=== PATIENT | male | born 1960 | race Caucasian/White ===

== ENCOUNTER → 2017-02-09 | Outpatient (REF) | payer MEDICARE ==
[~2017-02-09] MED LIST: /ADVA50050 INH; /BUSP5TA OR; ALBUTEROL INH; ASPI81TA45 PO; EUCECRE2 TOP; LASI40TA PO; LISINOPRIL/HCTZ PO; MICR10CA PO; NICO21DI4 TD; NYAM10003 EXT; PRAV20TA2 OR; PRED10TA2 OR; PULM1SUS INH; XANA0.25 OR; ZEST10TA OR; spiriva INH
[2017-02-09 20:35] LABS: ALBUMIN 3.9 GM/DL (3.2-5.2); ALBUMIN/GLOBULIN RATIO 1.15 (1.00-1.93); ALKALINE PHOSPHATASE 78 U/L (45-117); ALT/SGPT 36 U/L (12-78); ANION GAP 9 MEQ/L (8-16); AST/SGOT 23 U/L (15-37); BILIRUBIN,TOTAL 0.4 MG/DL (0.2-1.0); BLOOD UREA NITROGEN 13 MG/DL (7-18); CALCIUM LEVEL 8.7 MG/DL (8.5-10.1); CARBON DIOXIDE LEVEL 29 MEQ/L (21-32); CHLORIDE LEVEL 101 MEQ/L (98-107); CHOLESTEROL LEVEL 213 MG/DL (<200); CREATININE FOR GFR 0.99 MG/DL (0.70-1.30); GLOMERULAR FILTRATION RATE > 60.0 (>56); GLUCOSE, FASTING 125 MG/DL (70-105); POTASSIUM SERUM 4.6 MEQ/L (3.5-5.1); SODIUM LEVEL 139 MEQ/L (136-145); TOTAL PROTEIN 7.3 GM/DL (6.4-8.2); TRIGLYCERIDES LEVEL 289 MG/DL (<150)
== END ==
LOC: M SFHCCAPE 07:01
PROVIDERS: ATTEND Physician Assistant
DX: E11.9 Type 2 diabetes mellitus without complications (principal); E78.5 Hyperlipidemia, unspecified

== ENCOUNTER → 2017-06-04 | Outpatient (REF) | payer MEDICARE ==
[2017-06-04 17:28] LABS: ALBUMIN 3.8 GM/DL (3.2-5.2); ALBUMIN/GLOBULIN RATIO 1.15 (1.00-1.93); ALKALINE PHOSPHATASE 79 U/L (45-117); ALT/SGPT 35 U/L (12-78); ANION GAP 10 MEQ/L (8-16); AST/SGOT 19 U/L (15-37); BILIRUBIN,TOTAL 0.3 MG/DL (0.2-1.0); BLOOD UREA NITROGEN 11 MG/DL (7-18); CALCIUM LEVEL 8.8 MG/DL (8.5-10.1); CARBON DIOXIDE LEVEL 26 MEQ/L (21-32); CHLORIDE LEVEL 105 MEQ/L (98-107); CHOLESTEROL LEVEL 135 MG/DL (<200); CREATININE FOR GFR 0.87 MG/DL (0.70-1.30); GLOMERULAR FILTRATION RATE > 60.0 (>56); GLUCOSE, FASTING 109 MG/DL (70-105); POTASSIUM SERUM 4.7 MEQ/L (3.5-5.1); SODIUM LEVEL 141 MEQ/L (136-145); TOTAL PROTEIN 7.1 GM/DL (6.4-8.2); TRIGLYCERIDES LEVEL 137 MG/DL (<150)
== END ==
LOC: M SFHCCAPE 07:48
PROVIDERS: ATTEND Physician Assistant
DX: I10 Essential (primary) hypertension (principal); E11.9 Type 2 diabetes mellitus without complications; E78.5 Hyperlipidemia, unspecified

== ENCOUNTER → 2017-11-16 | Outpatient (REF) | payer MEDICARE ==
[2017-11-16 17:34] LABS: ALBUMIN/GLOBULIN RATIO 1.18 (1.00-1.93); ALKALINE PHOSPHATASE 84 U/L (45-117); ALT/SGPT 30 U/L (12-78); ANION GAP 4 MEQ/L (8-16); AST/SGOT 17 U/L (7-37); BILIRUBIN,TOTAL 0.4 MG/DL (0.2-1.0); BLOOD UREA NITROGEN 11 MG/DL (7-18); CALCIUM LEVEL 8.9 MG/DL (8.5-10.1); CARBON DIOXIDE LEVEL 33 MEQ/L (21-32); CHLORIDE LEVEL 101 MEQ/L (98-107); CHOLESTEROL LEVEL 151 MG/DL (<200); CHOLESTEROL RISK RATIO 4.718 (<5); CREATININE FOR GFR 0.85 MG/DL (0.70-1.30); FREE T4 0.85 NG/DL (0.76-1.46); GLOMERULAR FILTRATION RATE > 60.0 (>56); GLUCOSE, FASTING 107 MG/DL (70-100); HDL CHOLESTEROL 32 MG/DL (>40); LDL CHOLESTEROL 90.2 MG/DL (<100); NON-HDL-C 119 MG/DL; POTASSIUM SERUM 4.8 MEQ/L (3.5-5.1); SODIUM LEVEL 138 MEQ/L (136-145); TOTAL PROTEIN 7.4 GM/DL (6.4-8.2); TRIGLYCERIDES LEVEL 144 MG/DL (<150)
[2017-11-16 18:52] LABS: ESTIMATED AVERAGE GLUCOSE 143 MG/DL (60-110); HEMOGLOBIN A1c 6.6 %
== END ==
LOC: M SFHCCAPE 09:37
DX: E11.9 Type 2 diabetes mellitus without complications (principal); F32.9 Major depressive disorder, single episode, unspecified; Z23 Encounter for immunization
CPT/HCPCS: 84443

== ENCOUNTER → 2018-03-11 | Outpatient (REF) | payer MEDICARE ==
[2018-03-11 17:04] LABS: BASO # 0.1 10^3/uL (0.0-0.2); BASO % 0.9 % (0.0-1.0); EOS # 0.2 10^3/uL (0.0-0.50); EOS % 2.6 % (0.0-3.0); ESTIMATED AVERAGE GLUCOSE 143 MG/DL (60-110); HEMATOCRIT 48.5 % (42.0-52.0); HEMOGLOBIN 15.7 g/dl (13.5-17.5); HEMOGLOBIN A1c 6.6 %; IMMATURE GRANULOCYTE % 0.3 % (0-3.0); LYMPH # 2.1 10^3/uL (1.5-4.5); LYMPH % 22.9 % (24.0-44.0); MEAN CORPUSCULAR HEMOGLOBIN 31.8 pg (27.0-33.0); MEAN CORPUSCULAR HGB CONC 32.4 g/dl (32.0-36.5); MEAN CORPUSCULAR VOLUME 98.2 fl (80.0-96.0); MONO # 0.8 10^3/uL (0.0-0.8); MONO % 8.2 % (0.0-5.0); NEUTROPHILS % 65.1 % (36.0-66.0); PLATELET COUNT, AUTOMATED 364 10^3/uL (150-450); RED BLOOD COUNT 4.94 10^6/uL (4.30-6.10); RED CELL DISTRIBUTION WIDTH 14.2 % (11.5-14.5); WHITE BLOOD COUNT 9.2 10^3/uL (4.0-10.0)
[2018-03-11 17:08] LABS: ALBUMIN 3.8 GM/DL (3.2-5.2); ALBUMIN/GLOBULIN RATIO 1.06 (1.00-1.93); ALKALINE PHOSPHATASE 79 U/L (45-117); ALT/SGPT 38 U/L (12-78); ANION GAP 7 MEQ/L (8-16); AST/SGOT 21 U/L (7-37); BILIRUBIN,TOTAL 0.3 MG/DL (0.2-1.0); BLOOD UREA NITROGEN 12 MG/DL (7-18); CALCIUM LEVEL 8.8 MG/DL (8.5-10.1); CARBON DIOXIDE LEVEL 28 MEQ/L (21-32); CHLORIDE LEVEL 104 MEQ/L (98-107); CHOLESTEROL LEVEL 115 MG/DL (<200); CHOLESTEROL RISK RATIO 4.423 (<5); CREATININE FOR GFR 0.85 MG/DL (0.70-1.30); GLOMERULAR FILTRATION RATE > 60.0 (>56); GLUCOSE, FASTING 121 MG/DL (70-100); HDL CHOLESTEROL 26 MG/DL (>40); LDL CHOLESTEROL 62.4 MG/DL (<100); NON-HDL-C 89 MG/DL; POTASSIUM SERUM 4.7 MEQ/L (3.5-5.1); PSA SCREENING 0.56 NG/ML (< 4.0); SODIUM LEVEL 139 MEQ/L (136-145); TOTAL PROTEIN 7.4 GM/DL (6.4-8.2); TRIGLYCERIDES LEVEL 133 MG/DL (<150)
[2018-03-11 17:27] LABS: CREATININE, URINE 20.6 MG/DL; MALB URINE SIEMENS 5.2 MG/L; MAU/CREAT RATIO 25.2 MCG/MG (0.0-30.0)
== END ==
LOC: M SFHCCAPE 07:04
DX: E78.5 Hyperlipidemia, unspecified (principal); E11.9 Type 2 diabetes mellitus without complications; Z12.5 Encounter for screening for malignant neoplasm of prostate
CPT/HCPCS: 80053

== ENCOUNTER → 2018-06-14 | Outpatient (REF) | payer MEDICARE ==
[2018-06-14 17:23] LABS: ALBUMIN 3.5 GM/DL (3.2-5.2); ALKALINE PHOSPHATASE 76 U/L (45-117); ALT/SGPT 32 U/L (12-78); ANION GAP 8 MEQ/L (8-16); AST/SGOT 16 U/L (7-37); BASO # 0.1 10^3/uL (0.0-0.2); BASO % 0.7 % (0.0-1.0); BILIRUBIN,TOTAL 0.4 MG/DL (0.2-1.0); BLOOD UREA NITROGEN 13 MG/DL (7-18); CALCIUM LEVEL 8.6 MG/DL (8.5-10.1); CARBON DIOXIDE LEVEL 28 MEQ/L (21-32); CHLORIDE LEVEL 102 MEQ/L (98-107); CHOLESTEROL LEVEL 134 MG/DL (<200); CHOLESTEROL RISK RATIO 4.785 (<5); CREATININE FOR GFR 0.84 MG/DL (0.70-1.30); EOS # 0.4 10^3/uL (0.0-0.50); EOS % 3.6 % (0.0-3.0); GLOMERULAR FILTRATION RATE > 60.0 (>56); GLUCOSE, FASTING 118 MG/DL (70-100); HDL CHOLESTEROL 28 MG/DL (>40); HEMATOCRIT 51.2 % (42.0-52.0); HEMOGLOBIN 16.5 g/dl (13.5-17.5); IMMATURE GRANULOCYTE % 0.5 % (0-3.0); LYMPH # 2.1 10^3/uL (1.5-4.5); LYMPH % 21.3 % (24.0-44.0); MEAN CORPUSCULAR HEMOGLOBIN 31.5 pg (27.0-33.0); MEAN CORPUSCULAR HGB CONC 32.2 g/dl (32.0-36.5); MEAN CORPUSCULAR VOLUME 97.9 fl (80.0-96.0); MONO # 0.6 10^3/uL (0.0-0.8); MONO % 6.2 % (0.0-5.0); NEUTROPHILS # 6.7 10^3/uL (1.8-7.7); NEUTROPHILS % 67.7 % (36.0-66.0); NON-HDL-C 106 MG/DL; PLATELET COUNT, AUTOMATED 305 10^3/uL (150-450); POTASSIUM SERUM 4.8 MEQ/L (3.5-5.1); RED BLOOD COUNT 5.23 10^6/uL (4.30-6.10); RED CELL DISTRIBUTION WIDTH 14.1 % (11.5-14.5); SODIUM LEVEL 138 MEQ/L (136-145); TRIGLYCERIDES LEVEL 170 MG/DL (<150); WHITE BLOOD COUNT 9.9 10^3/uL (4.0-10.0)
[2018-06-14 17:25] LABS: ESTIMATED AVERAGE GLUCOSE 140 MG/DL (60-110); HEMOGLOBIN A1c 6.5 %; TOTAL 25(OH) VITAMIN D 27.3 NG/ML (30.0-100.0)
== END ==
LOC: M SFHCCAPE 07:09
DX: I10 Essential (primary) hypertension (principal); E11.9 Type 2 diabetes mellitus without complications; E55.9 Vitamin D deficiency, unspecified; E78.5 Hyperlipidemia, unspecified
CPT/HCPCS: 80053

== ENCOUNTER → 2018-10-28 | Outpatient (REF) | payer MEDICARE ==
[2018-10-28 17:47] LABS: ALBUMIN 3.5 GM/DL (3.2-5.2); ALT/SGPT 37 U/L (12-78); BILIRUBIN,TOTAL 0.3 MG/DL (0.2-1.0); BLOOD UREA NITROGEN 13 MG/DL (7-18); CALCIUM LEVEL 9.2 MG/DL (8.5-10.1); CARBON DIOXIDE LEVEL 31 MEQ/L (21-32); CHLORIDE LEVEL 98 MEQ/L (98-107); CHOLESTEROL LEVEL 171 MG/DL (<200); CHOLESTEROL RISK RATIO 5.516 (<5); GLOMERULAR FILTRATION RATE > 60.0 (>56); GLUCOSE, FASTING 147 MG/DL (70-100); HDL CHOLESTEROL 31 MG/DL (>40); LDL CHOLESTEROL 112 MG/DL (<100); NON-HDL-C 140 MG/DL; POTASSIUM SERUM 4.5 MEQ/L (3.5-5.1); SODIUM LEVEL 135 MEQ/L (136-145); TOTAL PROTEIN 7.3 GM/DL (6.4-8.2); TRIGLYCERIDES LEVEL 139 MG/DL (<150)
[2018-10-28 17:55] LABS: TOTAL 25(OH) VITAMIN D 19.9 NG/ML (30.0-100.0)
[2018-10-28 18:44] LABS: HEMOGLOBIN A1c 6.6 %
== END ==
LOC: M SFHCCAPE 07:13
PROVIDERS: ATTEND Physician Assistant
DX: I10 Essential (primary) hypertension (principal); E11.9 Type 2 diabetes mellitus without complications; E78.5 Hyperlipidemia, unspecified; E55.9 Vitamin D deficiency, unspecified

== ENCOUNTER → 2019-02-28 | Outpatient (REF) | payer MEDICARE ==
[~2019-02-28] MED LIST changes: -/ADVA50050 INH; +ADVA1AER2 INH
[2019-02-28 17:25] LABS: BASO # 0.1 10^3/uL (0.0-0.2); BASO % 0.8 % (0.0-1.0); EOS # 0.3 10^3/uL (0.0-0.50); EOS % 3.2 % (0.0-3.0); HEMATOCRIT 56.7 % (42.0-52.0); HEMOGLOBIN 17.4 g/dl (13.5-17.5); LYMPH # 2.1 10^3/uL (1.5-4.5); LYMPH % 20.4 % (24.0-44.0); MEAN CORPUSCULAR HEMOGLOBIN 30.6 pg (27.0-33.0); MEAN CORPUSCULAR HGB CONC 30.7 g/dl (32.0-36.5); MEAN CORPUSCULAR VOLUME 99.6 fl (80.0-96.0); MONO # 0.7 10^3/uL (0.0-0.8); MONO % 6.9 % (0.0-5.0); NEUTROPHILS # 7.1 10^3/uL (1.8-7.7); NEUTROPHILS % 67.9 % (36.0-66.0); PLATELET COUNT, AUTOMATED 320 10^3/uL (150-450); RED BLOOD COUNT 5.69 10^6/uL (4.30-6.10); WHITE BLOOD COUNT 10.4 10^3/uL (4.0-10.0)
[2019-02-28 17:38] LABS: ALBUMIN 3.4 GM/DL (3.2-5.2); ALT/SGPT 32 U/L (12-78); BILIRUBIN,TOTAL 0.4 MG/DL (0.2-1.0); BLOOD UREA NITROGEN 12 MG/DL (7-18); CALCIUM LEVEL 8.6 MG/DL (8.5-10.1); CARBON DIOXIDE LEVEL 35 MEQ/L (21-32); CHLORIDE LEVEL 99 MEQ/L (98-107); CHOLESTEROL LEVEL 162 MG/DL (<200); CHOLESTEROL RISK RATIO 5.225 (<5); CREATININE FOR GFR 0.89 MG/DL (0.70-1.30); GLOMERULAR FILTRATION RATE > 60.0 (>56); GLUCOSE, FASTING 122 MG/DL (70-100); HDL CHOLESTEROL 31 MG/DL (>40); LDL CHOLESTEROL 99 MG/DL (<100); NON-HDL-C 131 MG/DL; POTASSIUM SERUM 4.9 MEQ/L (3.5-5.1); SODIUM LEVEL 139 MEQ/L (136-145); TOTAL PROTEIN 7.6 GM/DL (6.4-8.2); TRIGLYCERIDES LEVEL 159 MG/DL (<150)
[2019-02-28 19:53] LABS: MALB URINE SIEMENS 28.4 MG/L; MAU/CREAT RATIO 19.1 MCG/MG (0.0-30.0)
== END ==
LOC: M SFHCCAPE 07:14
PROVIDERS: ATTEND Physician Assistant
DX: I10 Essential (primary) hypertension (principal); E11.9 Type 2 diabetes mellitus without complications; Z12.5 Encounter for screening for malignant neoplasm of prostate; F32.9 Major depressive disorder, single episode, unspecified; E55.9 Vitamin D deficiency, unspecified
CPT/HCPCS: 36415; 80053; 80061; 82043; 82306; 83036; 84443; 85025; G0103

== ENCOUNTER → 2019-04-25 | Outpatient (REF) | payer MEDICARE ==
[2019-04-25 18:01] LABS: BASO # 0.1 10^3/uL (0.0-0.2); BASO % 0.6 % (0.0-1.0); EOS # 0.3 10^3/uL (0.0-0.50); EOS % 2.9 % (0.0-3.0); HEMATOCRIT 56.6 % (42.0-52.0); HEMOGLOBIN 17.8 g/dl (13.5-17.5); LYMPH # 1.9 10^3/uL (1.5-4.5); MEAN CORPUSCULAR HEMOGLOBIN 31.2 pg (27.0-33.0); MEAN CORPUSCULAR HGB CONC 31.4 g/dl (32.0-36.5); MEAN CORPUSCULAR VOLUME 99.3 fl (80.0-96.0); MONO # 0.8 10^3/uL (0.0-0.8); MONO % 7.8 % (0.0-5.0); NEUTROPHILS % 69.3 % (36.0-66.0); PLATELET COUNT, AUTOMATED 328 10^3/uL (150-450); WHITE BLOOD COUNT 10.1 10^3/uL (4.0-10.0)
[2019-04-25 18:03] LABS: BLOOD UREA NITROGEN 13 MG/DL (7-18); CREATININE FOR GFR 0.88 MG/DL (0.70-1.30); GLUCOSE, FASTING 106 MG/DL (70-100)
[2019-04-25 18:04] LABS: ALBUMIN 3.6 GM/DL (3.2-5.2); ALT/SGPT 27 U/L (12-78); BILIRUBIN,TOTAL 0.3 MG/DL (0.2-1.0); CALCIUM LEVEL 8.9 MG/DL (8.5-10.1); CARBON DIOXIDE LEVEL 31 MEQ/L (21-32); CHLORIDE LEVEL 102 MEQ/L (98-107); GLOMERULAR FILTRATION RATE > 60.0 (>56); POTASSIUM SERUM 4.9 MEQ/L (3.5-5.1); SODIUM LEVEL 139 MEQ/L (136-145); TOTAL PROTEIN 7.4 GM/DL (6.4-8.2)
[2019-04-25 19:12] LABS: TOTAL 25(OH) VITAMIN D 16.8 NG/ML (30.0-100.0)
== END ==
LOC: M SFHCCAPE 07:06
PROVIDERS: ATTEND Physician Assistant
DX: R71.8 Other abnormality of red blood cells (principal); E55.9 Vitamin D deficiency, unspecified

== ENCOUNTER → 2019-09-05 | Outpatient (REF) | payer MEDICARE ==
[2019-09-05 17:10] LABS: BASO # 0.1 10^3/uL (0.0-0.2); BASO % 0.8 % (0.0-1.0); EOS # 0.3 10^3/uL (0.0-0.5); EOS % 2.8 % (0.0-3.0); HEMATOCRIT 53.8 % (42.0-52.0); HEMOGLOBIN 17.2 g/dl (13.5-17.5); LYMPH # 1.9 10^3/uL (1.5-5.0); LYMPH % 20.3 % (24.0-44.0); MEAN CORPUSCULAR HEMOGLOBIN 31.2 pg (27.0-33.0); MEAN CORPUSCULAR VOLUME 97.6 fl (80.0-96.0); MONO # 0.9 10^3/uL (0.0-0.8); MONO % 9.1 % (0.0-5.0); NEUTROPHILS # 6.4 10^3/uL (1.5-8.5); NEUTROPHILS % 66.6 % (36.0-66.0); PLATELET COUNT, AUTOMATED 288 10^3/uL (150-450); RED BLOOD COUNT 5.51 10^6/uL (4.30-6.10); WHITE BLOOD COUNT 9.6 10^3/uL (4.0-10.0)
[2019-09-05 17:38] LABS: ALBUMIN 3.5 GM/DL (3.2-5.2); ALT/SGPT 29 U/L (12-78); BILIRUBIN,TOTAL 0.4 MG/DL (0.2-1.0); BLOOD UREA NITROGEN 15 MG/DL (7-18); CALCIUM LEVEL 8.3 MG/DL (8.5-10.1); CARBON DIOXIDE LEVEL 31 MEQ/L (21-32); CHLORIDE LEVEL 102 MEQ/L (98-107); CHOLESTEROL LEVEL 118 MG/DL (<200); CHOLESTEROL RISK RATIO 3.933 (<5); CREATININE FOR GFR 0.84 MG/DL (0.70-1.30); GLOMERULAR FILTRATION RATE > 60.0 (>56); GLUCOSE, FASTING 102 MG/DL (70-100); HDL CHOLESTEROL 30 MG/DL (>40); LDL CHOLESTEROL 68 MG/DL (<100); NON-HDL-C 88 MG/DL; POTASSIUM SERUM 5.3 MEQ/L (3.5-5.1); SODIUM LEVEL 139 MEQ/L (136-145); TOTAL PROTEIN 6.9 GM/DL (6.4-8.2); TRIGLYCERIDES LEVEL 101 MG/DL (<150)
[2019-09-05 18:00] LABS: HEMOGLOBIN A1c 6.3 %
[2019-09-05 18:34] LABS: TOTAL 25(OH) VITAMIN D 20.7 NG/ML (30.0-100.0)
== END ==
LOC: M SFHCCAPE 06:57
PROVIDERS: ATTEND Physician Assistant
DX: D58.2 Other hemoglobinopathies (principal); I10 Essential (primary) hypertension; E11.8 Type 2 diabetes mellitus with unspecified complications; F32.9 Major depressive disorder, single episode, unspecified; E55.9 Vitamin D deficiency, unspecified
CPT/HCPCS: 36415; 80053; 80061; 82306; 83036; 84443; 85025; 90682; G0008

== ENCOUNTER → 2019-09-13 | Outpatient (REF) | payer MEDICARE ==
[2019-09-13 18:17] LABS: BLOOD UREA NITROGEN 15 MG/DL (7-18); CALCIUM LEVEL 9.1 MG/DL (8.5-10.1); CARBON DIOXIDE LEVEL 35 MEQ/L (21-32); CHLORIDE LEVEL 100 MEQ/L (98-107); CREATININE FOR GFR 0.92 MG/DL (0.70-1.30); GLOMERULAR FILTRATION RATE > 60.0 (>56); GLUCOSE, FASTING 116 MG/DL (70-100); MAGNESIUM LEVEL 2.1 MG/DL (1.8-2.4); POTASSIUM SERUM 4.7 MEQ/L (3.5-5.1); SODIUM LEVEL 139 MEQ/L (136-145)
== END ==
LOC: M SFHCCAPE 07:18
PROVIDERS: ATTEND Physician Assistant
DX: E87.5 Hyperkalemia (principal)

== ENCOUNTER → 2019-12-15 | Outpatient (REF) | payer MEDICARE ==
[2019-12-15 16:11] LABS: BASO # 0.1 10^3/uL (0.0-0.2); BASO % 0.7 % (0.0-1.0); EOS # 0.2 10^3/uL (0.0-0.5); EOS % 1.7 % (0.0-3.0); HEMATOCRIT 58.3 % (42.0-52.0); HEMOGLOBIN 18.3 g/dl (13.5-17.5); LYMPH # 1.9 10^3/uL (1.5-5.0); LYMPH % 13.9 % (24.0-44.0); MEAN CORPUSCULAR HEMOGLOBIN 31.3 pg (27.0-33.0); MEAN CORPUSCULAR HGB CONC 31.4 g/dl (32.0-36.5); MEAN CORPUSCULAR VOLUME 99.7 fl (80.0-96.0); MONO # 0.9 10^3/uL (0.0-0.8); NEUTROPHILS # 10.2 10^3/uL (1.5-8.5); NEUTROPHILS % 76.3 % (36.0-66.0); PLATELET COUNT, AUTOMATED 291 10^3/uL (150-450); RED BLOOD COUNT 5.85 10^6/uL (4.30-6.10); WHITE BLOOD COUNT 13.4 10^3/uL (4.0-10.0)
[2019-12-15 16:30] LABS: ALBUMIN 3.8 GM/DL (3.2-5.2); ALT/SGPT 30 U/L (12-78); BILIRUBIN,TOTAL 0.7 MG/DL (0.2-1.0); BLOOD UREA NITROGEN 11 MG/DL (7-18); CALCIUM LEVEL 8.8 MG/DL (8.5-10.1); CARBON DIOXIDE LEVEL 35 MEQ/L (21-32); CHLORIDE LEVEL 99 MEQ/L (98-107); CHOLESTEROL LEVEL 130 MG/DL (<200); CHOLESTEROL RISK RATIO 3.939 (<5); CREATININE FOR GFR 0.87 MG/DL (0.70-1.30); GLOMERULAR FILTRATION RATE > 60.0 (>56); GLUCOSE, FASTING 127 MG/DL (70-100); HDL CHOLESTEROL 33 MG/DL (>40); LDL CHOLESTEROL 74 MG/DL (<100); NON-HDL-C 97 MG/DL; POTASSIUM SERUM 4.6 MEQ/L (3.5-5.1); SODIUM LEVEL 137 MEQ/L (136-145); TOTAL PROTEIN 7.1 GM/DL (6.4-8.2); TRIGLYCERIDES LEVEL 113 MG/DL (<150)
[2019-12-15 16:40] LABS: HEMOGLOBIN A1c 6.4 %
[2019-12-15 16:49] LABS: TOTAL 25(OH) VITAMIN D 13.6 NG/ML (30.0-100.0)
[2019-12-15 17:07] LABS: CREATININE, URINE 58.7 MG/DL; MALB URINE SIEMENS 30.8 MG/L; MAU/CREAT RATIO 52.4 MCG/MG (0.0-30.0)
== END ==
LOC: M SFHCCAPE 07:00
PROVIDERS: ATTEND Physician Assistant
DX: I10 Essential (primary) hypertension (principal); E11.9 Type 2 diabetes mellitus without complications; E78.5 Hyperlipidemia, unspecified; E55.9 Vitamin D deficiency, unspecified

== ENCOUNTER → 2020-03-26 | Outpatient (REF) | payer MEDICARE ==
[2020-03-26 11:41] LABS: BASO # 0.1 10^3/uL (0.0-0.2); BASO % 0.8 % (0.0-1.0); EOS # 0.3 10^3/uL (0.0-0.5); EOS % 2.6 % (0.0-3.0); HEMATOCRIT 63.4 % (42.0-52.0); LYMPH # 1.8 10^3/uL (1.5-5.0); LYMPH % 16.7 % (24.0-44.0); MEAN CORPUSCULAR HEMOGLOBIN 31.8 pg (27.0-33.0); MEAN CORPUSCULAR VOLUME 99.4 fl (80.0-96.0); MONO # 0.7 10^3/uL (0.0-0.8); MONO % 6.2 % (0.0-5.0); NEUTROPHILS # 7.8 10^3/uL (1.5-8.5); NEUTROPHILS % 73.1 % (36.0-66.0); PLATELET COUNT, AUTOMATED 273 10^3/uL (150-450); RED BLOOD COUNT 6.38 10^6/uL (4.30-6.10); WHITE BLOOD COUNT 10.6 10^3/uL (4.0-10.0)
[2020-03-26 12:08] LABS: HEMOGLOBIN 20.3 g/dl (13.5-17.5)
[2020-03-26 14:21] LABS: ALBUMIN 3.7 GM/DL (3.2-5.2); ALT/SGPT 35 U/L (12-78); BILIRUBIN,TOTAL 0.5 MG/DL (0.2-1.0); BLOOD UREA NITROGEN 11 MG/DL (7-18); CALCIUM LEVEL 9.1 MG/DL (8.5-10.1); CARBON DIOXIDE LEVEL 32 MEQ/L (21-32); CHLORIDE LEVEL 99 MEQ/L (98-107); CHOLESTEROL LEVEL 117 MG/DL (<200); CREATININE FOR GFR 0.76 MG/DL (0.70-1.30); GLOMERULAR FILTRATION RATE > 60.0 (>56); GLUCOSE, FASTING 108 MG/DL (70-100); HDL CHOLESTEROL 30 MG/DL (>40); LDL CHOLESTEROL 65 MG/DL (<100); NON-HDL-C 87 MG/DL; SODIUM LEVEL 140 MEQ/L (136-145); TOTAL 25(OH) VITAMIN D 49.3 NG/ML (30.0-100.0); TOTAL PROTEIN 6.9 GM/DL (6.4-8.2); TRIGLYCERIDES LEVEL 110 MG/DL (<150)
[2020-03-26 14:24] LABS: HEMOGLOBIN A1c 6.9 %
== END ==
LOC: M SFHCCLAY 09:03
PROVIDERS: ATTEND Physician Assistant
DX: I10 Essential (primary) hypertension (principal); E11.9 Type 2 diabetes mellitus without complications; E78.5 Hyperlipidemia, unspecified; Z12.5 Encounter for screening for malignant neoplasm of prostate; F32.9 Major depressive disorder, single episode, unspecified; E55.9 Vitamin D deficiency, unspecified
CPT/HCPCS: 80053; 80061; 82306; 83036; 84443; 85025; G0103

== ENCOUNTER → 2020-04-25 | Outpatient (CLI) | payer MEDICARE ==
[~2020-04-25] MED LIST changes: +ALBU8.5H INH; +ASPI81CH33 PO; +ASPI81TA85 PO; +ATOR40TA75 PO; +CITA20TA6 PO; +EUCECRE8 TP; +FURO20TA2 PO; +HYDR-3715 PO; +LISI-538 PO; +METF-839 PO; +NICO1KIT TOP; +PLAV1TAB2 PO; +POTA10TA17 PO
--- NOTE | 2020-04-25 10:18 | REP ---
Clinical: History of polycythemia. Technique: Real time [place]amorado scale and color evaluation using curved array transducer. Findings: Ultrasound examination of the left upper quadrant demonstrates normal spleen measuring 10.0 x 4.5 x 6.5 cm. No splenic lesions are identified. The right kidney is normal in reniform shape without hydronephrosis and measures 12.1 x 5.6 x 6.5 cm. Impression: Normal spleen and left upper quadrant ultrasound. Electronically Signed by Kt Castillo MD 04/25/2020 10:10 A
== END ==
LOC: M LRY 08:47
PROVIDERS: ATTEND Specialist
DX: D75.1 Secondary polycythemia (principal); D72.829 Elevated white blood cell count, unspecified

== ENCOUNTER → 2020-07-05 | Outpatient (REF) | payer MEDICARE ==
[~2020-07-05] MED LIST changes: -ASPI81TA85 PO; +ASPI81TA86 PO; +ATOR80TA59 PO; +CITA40TA4 PO; +METO1TAB7 PO; +MOXI1TAB PO; +NICO21PAT TD; +PRED10TA2 PO; +VITA50005 PO
[2020-07-05 13:50] LABS: BASO # 0.1 10^3/uL (0.0-0.2); BASO % 0.9 % (0.0-1.0); EOS # 0.3 10^3/uL (0.0-0.5); EOS % 2.4 % (0.0-3.0); HEMATOCRIT 60.9 % (42.0-52.0); HEMOGLOBIN 17.9 g/dl (13.5-17.5); LYMPH % 16.9 % (24.0-44.0); MEAN CORPUSCULAR HEMOGLOBIN 29.1 pg (27.0-33.0); MEAN CORPUSCULAR HGB CONC 29.4 g/dl (32.0-36.5); MONO # 1.1 10^3/uL (0.0-0.8); MONO % 9.2 % (0.0-5.0); NEUTROPHILS # 8.2 10^3/uL (1.5-8.5); PLATELET COUNT, AUTOMATED 311 10^3/uL (150-450); RED BLOOD COUNT 6.15 10^6/uL (4.30-6.10); WHITE BLOOD COUNT 11.7 10^3/uL (4.0-10.0)
[2020-07-05 14:11] LABS: HEMOGLOBIN A1c 6.9 %
[2020-07-05 14:15] LABS: ALBUMIN 3.5 GM/DL (3.2-5.2); ALT/SGPT 31 U/L (12-78); BILIRUBIN,TOTAL 0.5 MG/DL (0.2-1.0); BLOOD UREA NITROGEN 11 MG/DL (7-18); CALCIUM LEVEL 9.1 MG/DL (8.5-10.1); CARBON DIOXIDE LEVEL 37 MEQ/L (21-32); CHLORIDE LEVEL 98 MEQ/L (98-107); CHOLESTEROL LEVEL 134 MG/DL (<200); CHOLESTEROL RISK RATIO 3.828 (<5); CREATININE FOR GFR 0.88 MG/DL (0.70-1.30); GLOMERULAR FILTRATION RATE > 60.0 (>56); GLUCOSE, FASTING 101 MG/DL (70-100); HDL CHOLESTEROL 35 MG/DL (>40); LDL CHOLESTEROL 74 MG/DL (<100); NON-HDL-C 99 MG/DL; POTASSIUM SERUM 4.6 MEQ/L (3.5-5.1); SODIUM LEVEL 139 MEQ/L (136-145); TOTAL PROTEIN 7.3 GM/DL (6.4-8.2); TRIGLYCERIDES LEVEL 125 MG/DL (<150)
== END ==
LOC: M LABDRAWC 08:35
PROVIDERS: ATTEND Physician Assistant
DX: E11.8 Type 2 diabetes mellitus with unspecified complications (principal)

== ENCOUNTER 2020-07-09 12:24 | Inpatient (IN) | payer MEDICARE ==
[~2020-07-09] VITALS: Ht 172.7 cm; Wt 143.8 kg
[~2020-07-09 12:24] MED LIST changes: -ATOR80TA59 PO; -CITA40TA4 PO; -METO1TAB7 PO; -MOXI1TAB PO; -NICO21PAT TD; -PRED10TA2 PO; -VITA50005 PO
[2020-07-09] MEDS ORDERED: METO1TAB7 PO (12:35)
[2020-07-09] MEDS ORDERED: methylPREDNISolone 125MG 2ML VIAL IV ONE (13:00)
--- NOTE | 2020-07-09 13:20 | REPVR ---
PROCEDURE INFORMATION: Exam: XR Chest, 1 View Exam date and time: 07/09/2020 1:11 PM Age: 59 years old Clinical indication: Dyspnea; Additional info: Dyspnea/cough TECHNIQUE: Imaging protocol: XR of the chest Views: 1 view. COMPARISON: No relevant prior studies available. FINDINGS: Lungs: Unremarkable. No consolidation. Pleural space: Unremarkable. No pleural effusion. No pneumothorax. Heart/Mediastinum: There is cardiomegaly. Bones/joints: Unremarkable. IMPRESSION: No acute findings. Electronically signed by: Des Hagan On 07/09/2020 13:20:42 PM
[2020-07-09] MEDS: IPRATROPIUM 0.5MG/ALBUTEROL 2.5MG INH SOL UD 3ML (DUONEB) NEB PRN ×3 (13:32→14:10)
[2020-07-09 13:42] LABS: BASO # 0.1 10^3/uL (0.0-0.2); BASO % 0.7 % (0.0-1.0); EOS # 0.2 10^3/uL (0.0-0.5); HEMOGLOBIN 16.6 g/dl (13.5-17.5); LYMPH # 1.6 10^3/uL (1.5-5.0); LYMPH % 13.5 % (24.0-44.0); MEAN CORPUSCULAR HEMOGLOBIN 28.5 pg (27.0-33.0); MEAN CORPUSCULAR HGB CONC 29.6 g/dl (32.0-36.5); MEAN CORPUSCULAR VOLUME 96.2 fl (80.0-96.0); MONO % 8.3 % (0.0-5.0); NEUTROPHILS # 8.6 10^3/uL (1.5-8.5); NEUTROPHILS % 74.9 % (36.0-66.0); PLATELET COUNT, AUTOMATED 315 10^3/uL (150-450); RED BLOOD COUNT 5.82 10^6/uL (4.30-6.10); WHITE BLOOD COUNT 11.5 10^3/uL (4.0-10.0)
[2020-07-09 13:44] LABS: VENOUS BASE EXCESS 6.4 (-2.0-2.0); VENOUS HCO3 36.5 MEQ/L (23.0-27.0); VENOUS O2 SATURATION 98.2 % (60.0-80.0); VENOUS PARTIAL PRESSURE CO2 75.8 mmHg (38.0-50.0); VENOUS PARTIAL PRESSURE O2 120.6 mmHg (30.0-50.0); VENOUS STANDARD HCO3 30.3 MEQ/L; VENOUS TOTAL CO2 38.8 MEQ/L (24.0-28.0)
[2020-07-09 13:54] LABS: INR 0.97
[2020-07-09 14:19] LABS: ALBUMIN 3.3 GM/DL (3.2-5.2); BILIRUBIN,DIRECT 0.2 MG/DL (0.0-0.2); BILIRUBIN,TOTAL 0.6 MG/DL (0.2-1.0); CK-MB VALUE MASS 3.4 NG/ML (<3.6); MB/CK RELATIVE INDEX 2.34 (< OR =4); THYROID STIMULATING HORMONE 1.63 uIU/ML (0.358-3.740); THYROXINE (T4) 5.5 UG/DL (4.5-12.0); TOTAL PROTEIN 6.6 GM/DL (6.4-8.2); TROPONIN I 0.04 NG/ML (< 0.10)
[2020-07-09] MEDS ORDERED: DEXTROSE 50% 50 ML SYRINGE IV PRN (15:00)
[2020-07-09] MEDS ORDERED: GLUCAGON INJ 1MG VIAL SC PRN (15:00)
[2020-07-09] MEDS ORDERED: GLUCOSE 4GM CHEW TABLET PO PRN (15:00)
[2020-07-09] MEDS ORDERED: LEVALBUTEROL 1.25 MG/0.5 ML CONCENTRATE NEB INH PRN (15:00)
[2020-07-09] MEDS ORDERED: ATOR80TA59 PO (15:07)
[2020-07-09] MEDS ORDERED: VITA50005 PO (15:07)
[2020-07-09] MEDS ORDERED: CITA40TA4 PO (15:07)
[2020-07-09] MEDS ORDERED: ISOVUE-370 76% 100ML VIAL As Ordered ONE (15:27)
[2020-07-09] MEDS ORDERED: ALBUTEROL 90 MCG/ACT 8GM HFA INHALER INH PRN (15:30)
[2020-07-09] MEDS ORDERED: NORCO, ANEXSIA 5/325MG TABLET (HYDROcodone/ACETAMINOPHEN) PO PRN (15:30)
[2020-07-09] MEDS: LEVALBUTEROL 1.25 MG/0.5 ML CONCENTRATE NEB INH SCH ×3 (15:32→23:38)
[2020-07-09] MEDS ORDERED: metOLazone 5 MG TAB PO ONE ×2 (16:00→17:30)
[2020-07-09 16:12] VITALS: BP 131/62
--- NOTE | 2020-07-09 16:15 | REPVR ---
PROCEDURE INFORMATION: Exam: CT Angiography Chest With Contrast Exam date and time: 07/09/2020 3:55 PM Age: 59 years old Clinical indication: Other: R/O pe SOB TECHNIQUE: Imaging protocol: Computed tomographic angiography of the chest with intravenous contrast. 3D rendering (Not supervised by radiologist): MIP and/or 3D reconstructed images were created by the technologist. Radiation optimization: All CT scans at this facility use at least one of these dose optimization techniques: automated exposure control; mA and/or kV adjustment per patient size (includes targeted exams where dose is matched to clinical indication); or iterative reconstruction. Contrast material: ISOVIEW; Contrast volume: 75 ml; Contrast route: INTRAVENOUS (IV); COMPARISON: CR PORTABLE CHEST X-RAY 07/09/2020 12:51 PM FINDINGS: Pulmonary arteries: Contrast within the main pulmonary artery is 110 making evaluation not possible except for to rule out huge central pulmonary emboli. Aorta: Unremarkable. No aortic aneurysm. No aortic dissection. Lungs: There is a small amount of infiltrate possibly atelectasis scarring involving the left lower lobe. The right lung demonstrates no definite abnormality given motion. Pleural space: Unremarkable. No pneumothorax. No pleural effusion. Heart: Unremarkable. No cardiomegaly. No pericardial effusion. Lymph nodes: Unremarkable. No enlarged lymph nodes. Bones/joints: Unremarkable. No acute fracture. Soft tissues: Unremarkable. Other findings: There is motion noted throughout the study. IMPRESSION: 1. Essentially nondiagnostic study for pulmonary emboli. 2. Left lower lobe infiltrate. Electronically signed by: Des Hagan On 07/09/2020 16:14:55 PM
[2020-07-09] MEDS: DOXYCYCLINE HYCLATE 100 MG in D5W MINI-BAG PLUS 100 ML IV SCH (16:45)
[2020-07-09] MEDS ORDERED: NICOTINE POLACRILEX 2 MG GUM PO PRN (16:45)
[2020-07-09 16:46] LABS: CK-MB VALUE MASS 3.5 NG/ML (<3.6); MB/CK RELATIVE INDEX 2.41 (< OR =4); TROPONIN I 0.04 NG/ML (< 0.10)
[2020-07-09] MEDS: HumaLOG INSULIN (NovoLOG) PER UNIT SC SCH ×2 (16:47→21:01)
[2020-07-09 18:43] VITALS: BP 132/61
[2020-07-09] MEDS: FUROSEMIDE 40MG/4ML VIAL (J1940) IV SCH (18:43)
[2020-07-09 19:58] LABS: IONIZED CALCIUM 4.3 MG/DL (4.5-5.3)
[2020-07-09 20:00] VITALS: BP 135/64
[2020-07-09 20:22] LABS: BLOOD UREA NITROGEN 14 MG/DL (7-18); CALCIUM LEVEL 8.9 MG/DL (8.5-10.1); CARBON DIOXIDE LEVEL 36 MEQ/L (21-32); CHLORIDE LEVEL 94 MEQ/L (98-107); CREATININE FOR GFR 1.07 MG/DL (0.70-1.30); GLOMERULAR FILTRATION RATE > 60.0 (>56); GLUCOSE, FASTING 239 MG/DL (70-100); MAGNESIUM LEVEL 1.9 MG/DL (1.8-2.4); POTASSIUM SERUM 4.6 MEQ/L (3.5-5.1); SODIUM LEVEL 136 MEQ/L (136-145)
[2020-07-09 20:42] LABS: CK-MB VALUE MASS 3.5 NG/ML (<3.6); MB/CK RELATIVE INDEX 2.12 (< OR =4); TROPONIN I 0.03 NG/ML (< 0.10)
[2020-07-09 20:44] LABS: ABG PARTIAL PRESSURE O2 56.8 mmHg (75.0-100.0)
[2020-07-09 20:45] LABS: ABG BASE EXCESS 3.5 (-2.0-2.0); ABG HCO3 31.6 MEQ/L (22.0-26.0); ABG O2 SATURATION 89.7 % (95.0-99.0); ABG STANDARD HCO3 27.3 MEQ/L (22.0-26.0); ABG TOTAL CO2 33.5 MEQ/L (22.0-29.0); ABG pH (ARTERIAL) 7.332 UNITS (7.350-7.450)
[2020-07-09 20:48] LABS: ABG PARTIAL PRESSURE CO2 61.1 mmHg (35.0-45.0)
[2020-07-09] MEDS: methylPREDNISolone 125MG 2ML VIAL IV SCH (21:00)
[2020-07-09] MEDS: HEPARIN SOD (PORCINE) 5000UNITS/ML 1ML VIAL/SYRINGE SQ SCH (21:01)
[2020-07-09] MEDS: NICOTINE 21MG/24HR 1 EA TRANSDERMAL TD SCH (21:01)
[2020-07-10] VITALS: BP 132/71
[2020-07-10] MEDS: FUROSEMIDE 40MG/4ML VIAL (J1940) IV SCH ×6 (01:23→21:09)
[2020-07-10] MEDS: methylPREDNISolone 125MG 2ML VIAL IV SCH ×4 (01:24→21:08)
[2020-07-10 04:00] VITALS: BP 111/53
[2020-07-10] MEDS: LEVALBUTEROL 1.25 MG/0.5 ML CONCENTRATE NEB INH SCH ×6 (04:00→23:36)
[2020-07-10] MEDS: DOXYCYCLINE HYCLATE 100 MG in D5W MINI-BAG PLUS 100 ML IV SCH ×2 (04:01→14:37)
[2020-07-10] MEDS: HEPARIN SOD (PORCINE) 5000UNITS/ML 1ML VIAL/SYRINGE SQ SCH ×3 (05:39→21:09)
[2020-07-10 06:25] LABS: HEMATOCRIT 59.3 % (42.0-52.0); HEMOGLOBIN 17.7 g/dl (13.5-17.5); MEAN CORPUSCULAR HEMOGLOBIN 28.5 pg (27.0-33.0); MEAN CORPUSCULAR HGB CONC 29.8 g/dl (32.0-36.5); MEAN CORPUSCULAR VOLUME 95.3 fl (80.0-96.0); PLATELET COUNT, AUTOMATED 317 10^3/uL (150-450); RED BLOOD COUNT 6.22 10^6/uL (4.30-6.10); WHITE BLOOD COUNT 12.8 10^3/uL (4.0-10.0)
[2020-07-10 06:33] LABS: HEMOGLOBIN A1c 6.7 %
[2020-07-10 06:57] LABS: BLOOD UREA NITROGEN 14 MG/DL (7-18); CALCIUM LEVEL 9.2 MG/DL (8.5-10.1); CARBON DIOXIDE LEVEL 38 MEQ/L (21-32); CHLORIDE LEVEL 92 MEQ/L (98-107); CHOLESTEROL LEVEL 132 MG/DL (<200); CHOLESTEROL RISK RATIO 3.666 (<5); CREATININE FOR GFR 0.88 MG/DL (0.70-1.30); GLOMERULAR FILTRATION RATE > 60.0 (>56); GLUCOSE, FASTING 167 MG/DL (70-100); HDL CHOLESTEROL 36 MG/DL (>40); LDL CHOLESTEROL 78 MG/DL (<100); NON-HDL-C 96 MG/DL; POTASSIUM SERUM 4.4 MEQ/L (3.5-5.1); SODIUM LEVEL 136 MEQ/L (136-145); THYROID STIMULATING HORMONE 0.737 uIU/ML (0.358-3.740); TRIGLYCERIDES LEVEL 91 MG/DL (<150)
[2020-07-10] MEDS: TIOTROPIUM INHALER/CAPSULE (SPIRIVA) INH SCH (07:13)
[2020-07-10] MEDS ORDERED: HEPARIN SOD (PORCINE) 5000UNITS/ML 1ML VIAL/SYRINGE IV PRN (07:45)
[2020-07-10 08:00] VITALS: BP 134/71
[2020-07-10] MEDS ORDERED: metFORMIN (GLUCOPHAGE) 500 MG TAB PO SCH (08:00)
[2020-07-10] MEDS ORDERED: metOLazone 5 MG TAB PO ONE (08:30)
[2020-07-10] MEDS: CitaloPRAM (CeleXA) 20 MG TAB PO SCH (09:22)
[2020-07-10] MEDS: ATORVASTATIN 20 MG TAB PO SCH (09:22)
[2020-07-10] MEDS: CLOPIDOGREL 75 MG TAB PO SCH (09:22)
[2020-07-10] MEDS: ASPIRIN 81 MG ENTERIC TAB PO SCH (09:22)
[2020-07-10] MEDS: HumaLOG INSULIN (NovoLOG) PER UNIT SC SCH ×4 (09:23→21:09)
--- NOTE | 2020-07-10 10:38 | REPVR ---
PROCEDURE INFORMATION: Exam: US Duplex Lower Extremity Veins, Bilateral Exam date and time: 07/10/2020 10:16 AM Age: 59 years old Clinical indication: Edema, localized; Lower extremity, right and lower extremity, left; Additional info: Edema SOB R/O dvt TECHNIQUE: Imaging protocol: Real-time duplex ultrasound of the extremities with 2-D enamorado scale, color Doppler flow and spectral waveform analysis with image documentation. Complete exam focused on the bilateral lower extremity veins. COMPARISON: No relevant prior studies available. FINDINGS: Right deep veins: Unremarkable. The common femoral, femoral, proximal profunda femoral and popliteal veins are patent without thrombus. Normal Doppler waveforms. Normal compressibility and/or augmentation response. Right superficial veins: Saphenofemoral junction is patent without thrombus. Left deep veins: Unremarkable. The common femoral, femoral, proximal profunda femoral and popliteal veins are patent without thrombus. Normal Doppler waveforms. Normal compressibility and/or augmentation response. Left superficial veins: Saphenofemoral junction is patent without thrombus. Soft tissues: Unremarkable. IMPRESSION: No evidence of deep vein thrombosis. Electronically signed by: Kt Montano On 07/10/2020 10:37:38 AM
[2020-07-10] MEDS: cefTRIAXone SOD 2 GM in D5W MINI-BAG PLUS 50 ML IV SCH (10:47)
[2020-07-10 12:00] VITALS: BP 138/84
[2020-07-10] MEDS: NICOTINE 21MG/24HR 1 EA TRANSDERMAL TD SCH ×2 (14:37→21:10)
--- NOTE | 2020-07-10 14:52 | IPN ---
DATE: 07/10/2020 SUBJECTIVE: Patient seen and examined at the bedside. Chart has been reviewed. Complains of cough productive of yellow thick sputum, increasing shortness of breath with exertion but improved from yesterday. No complaints of chest pain, pressure or tightness. PHYSICAL EXAMINATION: VITALS: Temperature 97.9, pulse 81, respiratory rate 17, blood pressure 134/71, 93% on 3 liters nasal cannula. GENERAL: Patient is awake, alert, oriented to person, place and time. Answering questions appropriately. No conversational dyspnea. No use of respiratory accessory muscles. No nasal flaring. No tracheal deviation. Mild JVD. LUNGS: Clear to auscultation. No wheezing, rales, or rhonchi. Air entry is equal bilaterally. HEART: S1, S2, sinus rhythm. ABDOMEN: Obese, soft, nontender, nondistended. Positive bowel sounds. EXTREMITIES: 2+ pitting edema. LABORATORY DATA: White count 12.8, hemoglobin 17, hematocrit 59, platelet count 317,000. Sodium 136, potassium 4.4, chloride 92, bicarb 38, BUN 14, creatinine 0.88, glucose 167. Input 580 and output 1550 yesterday, negative 970. Admission weight 155.8 kilos and current weight 153.9 kilos. _ ASSESSMENT AND PLAN: This is a morbidly obese male with BMI of 51, obstructive sleep apnea; not using his CPAP since it had been broken, has been lost to follow-up with Dr. Ogden for the past two years, congestive heart failure, diastolic dysfunction, possible obesity hypoventilation syndrome secondary to polycythemia most likely secondary to end-stage COPD and obstructive sleep apnea that had been untreated, super-morbid obesity on weekly phlebotomy as recommended by Dr. Krishnamurthy, medical oncologist, CAD stent x2, congestive heart failure with preserved systolic function, hypertensive heart disease, hyperlipidemia, chronic pain due to osteoarthritis of bilateral knees and back, who presents to the Emergency Room with worsening shortness of breath and was found to have a left lower lobe infiltrate, COPD exacerbation and fluid overload with chronic lower extremity edema. CT chest on 07/09 shows left lower lobe infiltrate and pulmonary emphysema. Active issues are as follows: 1. Left lower lobe pneumonia community-acquired: Patient is currently on broad spectrum antibiotics with Ceftriaxone and Doxycycline for atypical antibiotics. Sputum culture has been sent. Awaiting urine Legionella, urine Streptococcal antigen. Nebulizer treatment as needed. Supplement the oxygen to keep O2 sat at 88 to 92%. 2. Acute COPD exacerbation: Currently requiring supplemental oxygen, room air saturation yesterday was 88% with dyspnea on exertion. Currently on Solu-Medrol, I.V. antibiotics and nebulizer treatments. 3. Obstructive sleep apnea untreated: The patient will require a repeat sleep study and prescription from Dr. Ogden in order to obtain CPAP as an outpatient. 4. Active tobacco abuse: Still smoking a pack a day, smoking cessation has been provided. Currently on one patch 21 mg q.h.s. along with nicotine as needed. 5. History of CAD and stent: Currently on aspirin, Lipitor and Plavix. No acute ischemic symptoms. 6. Chronic back pain: On home dose of [place]. 7. Type 2 diabetes: On consistent carbohydrate diet and sliding scale. 8. Steroid induced leukocytosis: Titrate Solu-Medrol as clinically indicated. 9. Secondary polycythemia: On weekly phlebotomy with goal hematocrit of less than 47. MTDD
[2020-07-10 16:00] VITALS: BP 131/77
[2020-07-10 20:00] VITALS: BP 145/58
[2020-07-11] VITALS (7 sets, daily range): BP systolic 116–152; BP diastolic 56–85; O2SAT 91
[2020-07-11] MEDS: methylPREDNISolone 125MG 2ML VIAL IV SCH (02:05)
[2020-07-11] MEDS: FUROSEMIDE 40MG/4ML VIAL (J1940) IV SCH ×4 (02:05→17:49)
[2020-07-11] MEDS: DOXYCYCLINE HYCLATE 100 MG in D5W MINI-BAG PLUS 100 ML IV SCH ×2 (02:06→14:42)
[2020-07-11] MEDS: LEVALBUTEROL 1.25 MG/0.5 ML CONCENTRATE NEB INH SCH ×6 (04:03→23:54)
[2020-07-11 05:44] LABS: MEAN CORPUSCULAR HEMOGLOBIN 28.7 pg (27.0-33.0); MEAN CORPUSCULAR HGB CONC 30.9 g/dl (32.0-36.5); MEAN CORPUSCULAR VOLUME 92.7 fl (80.0-96.0); PLATELET COUNT, AUTOMATED 331 10^3/uL (150-450); RED BLOOD COUNT 5.93 10^6/uL (4.30-6.10); WHITE BLOOD COUNT 16.4 10^3/uL (4.0-10.0)
[2020-07-11] MEDS: HEPARIN SOD (PORCINE) 5000UNITS/ML 1ML VIAL/SYRINGE SQ SCH ×3 (05:58→20:54)
[2020-07-11 06:25] LABS: BLOOD UREA NITROGEN 32 MG/DL (7-18); CALCIUM LEVEL 9.2 MG/DL (8.5-10.1); CARBON DIOXIDE LEVEL 48 MEQ/L (21-32); CHLORIDE LEVEL 82 MEQ/L (98-107); CREATININE FOR GFR 1.27 MG/DL (0.70-1.30); GLOMERULAR FILTRATION RATE > 60.0 (>56); GLUCOSE, FASTING 167 MG/DL (70-100); POTASSIUM SERUM 3.8 MEQ/L (3.5-5.1); SODIUM LEVEL 133 MEQ/L (136-145)
--- NOTE | 2020-07-11 06:53 | HPE ---
DATE OF ADMISSION: 07/09/2020 CHIEF COMPLAINT: Shortness of breath, dyspnea on exertion, limited ADLs due to dyspnea on exertion. HISTORY OF PRESENTING ILLNESS: This is a 59-year-old male with history of CAD, active smoker of a pack a day, not oxygen or steroid dependent, obstructive sleep apnea untreated for the past two years due to broken CPAP, congestive heart failure, diastolic dysfunction, history of CAD stent x2, hypertension, hyperlipidemia, morbid obesity with BMI of 52, possible obesity hypoventilation syndrome, secondary polycythemia, probable pulmonary hypertension with cor pulmonale and right-sided heart failure, who presents to the emergency room with a two month history of worsening shortness of breath, worsened over the past few days prompting him to come to the emergency room with complaints of a 10 pound weight gain despite every 2 hourly nebulizers. The patient has had no relief and also complains of yellow productive sputum production with no fever or chills at home. The patient usually ambulates with a cane and most often with a scooter when it is long distances. Despite having nebulizer treatments at home and using his scooters, he has been increasingly short of breath with paroxysmal nocturnal dyspnea and 2-3 pillow orthopnea at home. The patient said that he was started on phlebotomy for hematocrit greater than 47 and has been going weekly to the [facility] for phlebotomy of about a pint weekly. He continues to smoke a pack of cigarettes a day, down from 2 packs a day from previous years. He denies any chest pain or pressure or tightness, lightheadedness or dizziness. He denies any fever or chills. Chest x-ray was unremarkable, clear lungs, no infiltrate or effusion, no pulmonary edema. Hospitalist was called to admit the patient for COPD exacerbation and fluid overload. PAST MEDICAL HISTORY: * Diastolic congestive heart failure on ECHO 09/24/2017. * Hypertension. * Hyperlipidemia. * Super morbid obesity, BMI 52. * Chronic obstructive pulmonary disease. * Anxiety. * Coronary artery disease, catheterization in 2013 with occluded RCA, moderate disease left circumflex, with two drug-eluting stents in RCA, residual moderate disease on the left. * Obstructive sleep apnea. He uses CPAP, but has been noncompliant due to inability to repair the CPAP. * Ascending aortic aneurysm, ECHO in August 2017 with dilated loop of 4.3 cm, moderately enlarged ascending aortic aneurysm 4.5 cm. * Probable obesity hypoventilation syndrome. * Probable pulmonary hypertension. * Chronic hypercapnic respiratory failure. ALLERGIES: CHANTIX CAUSING NIGHTMARES. HOME MEDICATIONS: * Aspirin 81 mg daily. * Plavix 75 mg daily. * Vitamin D 50,000 units weekly. * Lasix 40 mg daily. * Metoprolol 50 mg daily. * Potassium 10 mEq daily. * Lisinopril unknown dose daily. * Albuterol two puffs inhaled q.i.d. as needed. * Atorvastatin 80 mg daily. * Citalopram 40 mg daily. * Hydrocodone/acetaminophen one tablet every 6 hours * Metformin 500 mg daily. PAST SURGICAL HISTORY: * Traumatic injury after falling off a roof in 1997 with fusion surgery in 1999, 2000, 2003. * He has been disabled since the two stents placed by Dr. Silva and sees Dr. Silva every six months. FAMILY HISTORY: Father with back issues. Mother at age 71 with COPD, diabetes, and aneurysm. Sister with obesity. Lives with . Mother from COPD. The patient's health care proxy is his , phone number [phone]. The patient is a full code. REVIEW OF SYSTEMS: Per HPI. The 12 point review of systems otherwise negative. PHYSICAL EXAMINATION: VITAL SIGNS: Temperature 98.4, pulse 69, respiratory rate 24, blood pressure 132/61, 88% on room air. GENERAL: The patient is awake, alert, oriented to person, place, and time, answering questions appropriately. Speech is fluent. He has 7-8 word conversation on dyspnea, no tripod positioning, no nasal flaring, no tracheal deviation. Moist mucous membranes. Unable to assess for JVD with a thick neck. No cervical lymphadenopathy or thyromegaly. Dry mucous membranes. LUNGS: Diminished with bilateral wheezing, increased I:E ratio. HEART: S1, S2, sinus rhythm. No murmurs, rubs, or gallops. ABDOMEN: Obese, soft, nontender, nondistended. EXTREMITIES: There is 2+ pitting edema to the sacrum. LABORATORY DATA: * White count 11.5, hemoglobin 16, hematocrit 56, platelet count 315. Sodium 138, potassium 4.2, chloride 92, bicarbonate 36, BUN 13, creatinine 0.8, glucose 141. Troponin 0.04. Liver function tests shows total bilirubins 0.6, direct bilirubin 0.2, AST 18, ALT 29, alkaline phosphatase 89. Total CK 145, Mb fraction 3.4. Troponin 0.04. BNP 807. Total proteins 6.6. Albumin 3.3. TSH 1.63, T4 5.5. * Venous blood gas shows pH 7.3, CO2 75, O2 120, bicarb 36, base excess 6.4. * Microbiology respiratory panel 914, negative COVID, negative respiratory panel. * Chest x-ray shows lungs are clear, no consolidation, no pleural effusion or pneumothorax, cardiomegaly, no acute findings. ASSESSMENT AND PLAN: This is a 59-year-old morbidly obese male with a history of hypertension, diabetes, hyperlipidemia, active smoker a pack a day and previously 2 packs a day, obstructive sleep apnea noncompliant with CPAP, morbid obesity, probable obesity hypoventilation syndrome, chronic diastolic heart failure, chronic hypercarbic respiratory failure, presents to the emergency room with two month history of worsening shortness of breath and a 10 pound weight gain, worsening over the week. IMPRESSION: * Acute chronic obstructive pulmonary disease exacerbation. * Chronic hypercapnic respiratory failure. * Chronic hypoxic respiratory failure requiring CPAP at night. * Obstructive sleep apnea requiring CPAP, but noncompliant. * Super morbid obesity. * Probable obesity hypoventilation syndrome with BMI of 52. * Metabolic syndrome with diabetes, hypertension, and obesity. * Type 2 diabetes. * Hypertensive heart disease. * History of CAD with stent in RCA. * Congestive heart failure, diastolic dysfunction, probable cor pulmonale. * Secondary polycythemia due to obesity hypoventilation syndrome, COPD, untreated obstructive sleep apnea. * Internal hemorrhoids, no acute complaints, chronic. * Vitamin D deficiency. * Dyslipidemia. * History of CAD and stent. * Abdominal aortic aneurysm. * Chronic lower extremity edema. PLAN: * The patient has elevated CO2 level and would be admitted to PCU under telemetry. If clinically worsens without foundation, worsening respiratory distress, may need to be transferred to the ICU for BiPAP therapy. The patient may be continued on his home CPAP settings at home. He will be given Solu- Medrol intravenously q.6 h., Xopenex q.4 h. and q.1 h. as needed. Continue on doxycycline 100 mg b.i.d. and supplemental oxygen to keep O2 saturation greater than 88% to 92%. * Monitor for respiratory failure, for altered mental status, and may need BiPAP overnight to reverse chronic wzizy-bt-uphynco hypercapnia. * Due to fluid overload, despite normal chest x-ray, the patient will be started on Lasix 40 IV q.6 h. * Due to complaints of orthopnea, as well as chronic lower extremity edema with a 10 pound weight gain, he will be placed on strict input and output, daily weights, and 2 liter fluid restriction. At this time, we will monitor for any dizziness or lightheadedness. * For the secondary polycythemia, the patient will undergo a phlebotomy once a week to be continued during this admission. The patient says that a pint is usually removed per Dr. Fagan recommendations. * Since he will be doing daily blood tests, we will continue to monitor hemoglobin and hematocrit daily. * For his obesity hypoventilation syndrome, the patient will need to be resumed on his home settings of CPAP in the evening. He will need PFS consulted in order to have the CPAP approved as outpatient. He will most likely need another sleep study with referral to [facility] another prescription for CPAP. * Due to history of CAD and complaints of shortness of breath, previous ECHO was in 2017, and we will obtain a 2-D ECHO now to document the pulmonary hypertension as well. Cardiac markers will be cycled. The next one will be at 10 p.m. this evening. Continue on aspirin and Plavix for now. Monitor for hypotension. Place holding parameters on patient's metoprolol. * For the type 2 diabetes, in light of the contrast study obtained to rule out PE on CT chest, the patients metformin will be held. He will be placed on a sliding scale and will most likely need Levemir insulin as well as lispro in order to control steroid-induced hyperglycemia, which would be expected since the steroids have been started at 80 IV q.6 hourly. * DVT prophylaxis with Heparin subcutaneous. MTDD
[2020-07-11] MEDS: TIOTROPIUM INHALER/CAPSULE (SPIRIVA) INH SCH (07:31)
[2020-07-11] MEDS ORDERED: predniSONE 20 MG TAB PO ONE (07:45)
[2020-07-11] MEDS ORDERED: metOLazone 5 MG TAB PO ONE (08:30)
--- NOTE | 2020-07-11 08:46 | REPVR ---
PROCEDURE INFORMATION: Exam: XR Chest, 2 Views Exam date and time: 07/11/2020 8:26 AM Age: 59 years old Clinical indication: Condition or disease; Other: Copd; Additional info: SOB [place] TECHNIQUE: Imaging protocol: XR of the chest Views: 2 views. COMPARISON: CR PORTABLE CHEST X-RAY 07/09/2020 12:51 PM FINDINGS: Lungs: Bilateral perihilar and left base opacities. Pleural space: Unremarkable. No pleural effusion. No pneumothorax. Heart/Mediastinum: Unremarkable. No cardiomegaly. Bones/joints: Multilevel degenerative disease of the thoracic spine.. IMPRESSION: Bilateral perihilar and left base opacities. Electronically signed by: Kashif Gonzalez On 07/11/2020 08:46:25 AM
[2020-07-11] MEDS: HumaLOG INSULIN (NovoLOG) PER UNIT SC SCH ×4 (09:03→20:51)
[2020-07-11] MEDS: ATORVASTATIN 20 MG TAB PO SCH (09:03)
[2020-07-11] MEDS: CitaloPRAM (CeleXA) 20 MG TAB PO SCH (09:04)
[2020-07-11] MEDS: CLOPIDOGREL 75 MG TAB PO SCH (09:04)
[2020-07-11] MEDS: ASPIRIN 81 MG ENTERIC TAB PO SCH (09:04)
[2020-07-11] MEDS: NICOTINE 21MG/24HR 1 EA TRANSDERMAL TD SCH ×2 (09:12→20:55)
[2020-07-11] MEDS: cefTRIAXone SOD 2 GM in D5W MINI-BAG PLUS 50 ML IV SCH (11:06)
[2020-07-11] MEDS ORDERED: NICO21PAT TD (11:18)
[2020-07-11] MEDS ORDERED: PRED10TA2 PO (11:18)
[2020-07-11] MEDS ORDERED: MOXI1TAB PO (11:18)
--- NOTE | 2020-07-11 11:56 | IPN ---
DATE: 07/11/2020 SUBJECTIVE: The patient says that his dyspnea is significantly improved but still with slight dyspnea on exertion when walking around the room. Patient was 7.2 liters of urine output yesterday, weight has decreased to 147.7 from an admission weight of 155.8. Denies any chest pain, pressure, tightness, lightheadedness or dizziness. Patient has no cough, no fever or chills overnight. PHYSICAL EXAMINATION: VITAL SIGNS: Temperature 97.7, pulse 85, respiratory rate 19, blood pressure is 152/81, 91% on 3 liters nasal cannula. GENERAL: The patient is awake, alert and oriented to person, place and time, answering questions appropriately. Mild conversational dyspnea with 8 to 9 word conversational dyspnea, no use of respiratory or accessory muscles. NECK: No JVD or thyromegaly. No cervical lymphadenopathy. HEENT: Moist mucous membranes. LUNGS: Diminished bilateral wheezing, faint, much improved from yesterday. No crackles. HEART: S1 and S2. Sinus rhythm. No murmurs, rubs or gallops. ABDOMEN: Abdomen is obese, soft, nontender and nondistended. EXTREMITIES: Trace edema of bilateral lower extremities. LABORATORY DATA: White count 16, hemoglobin 17, hematocrit 55, platelet count 331,000, sodium 133, potassium 3.8, chloride 82, bicarbonate 48, BUN 32, creatinine 1.27, glucose of 167, respiratory panel negative for COVID. Blood culture is negative. CT of chest on 07/09/20: Left lower infiltrate, no pulmonary embolism. ASSESSMENT AND PLAN: This is a 59-year-old male with a history of supermorbid obesity with a BMI of 49.5, metabolic syndrome with hypertensive heart disease, diabetes, hyperlipidemia, obstructive sleep apnea, untreated for the past two years due to broken CPAP and unable to obtain insurance coverage for CPAP, obesity hypoventilation syndrome, chronic hypercapnic respiratory failure, cor pulmonale with probable CHF, diastolic dysfunction, awaiting a 2-D echo, presents to the Emergency Room with dyspnea on exertion, was found to have acute COPD exacerbation with chronic hypercarbia as well as left lower community acquired pneumonia. IMPRESSION: 1. Community acquired pneumonia. 2. Acute COPD exacerbation. 3. Acute CHF, diastolic dysfunction with lower extremity edema, and two pillow orthopnea. 4. Obstructive sleep apnea, untreated for two years due to broken CPAP not covered by insurance, follows with Dr. Ogden with application submitted to the insurance but has been denied active tobacco abuse, still smoking a pack a day. 5. History of CAD and stent. 6. Chronic back pain. 7. Type 2 diabetes, steroid induced leukocytosis and hyperglycemia. 8. Secondary polycythemia secondary to endstage COPD, obstructive sleep apnea, requiring weekly phlebotomy. PLAN: At this time the patient is adamant about being discharged soon since his wheezing has improved, air entry is better and is diuresed well, would change to prednisone 60 mg daily and discontinue patients Solu-Medrol. He is continued on Ceftriaxone and Doxycycline for his pneumonia and is doing well without fever or chills. He is continued on his home dose of aspirin, atorvastatin for his coronary artery disease. For his active tobacco abuse, the patient states that he would like to continue with nicotine patch and will stop smoking now. For the obstructive sleep apnea and his secondary polycythemia, per nursing, the patient is unable to do the phlebotomy of one pint as an inpatient but can be done as an outpatient. Patient is otherwise going to be evaluated by Physical Therapy for discharge today. He is to be ambulated on room air for O2 sat check. May need supplemental oxygen as an outpatient. Monitor on 60 mg of prednisone. If stable, may be discharged today. CHARLETTE
[2020-07-11] MEDS ORDERED: SLF 3 ML SYR IV PRN (16:30)
[2020-07-11 17:39] LABS: BLOOD UREA NITROGEN 40 MG/DL (7-18); CALCIUM LEVEL 9.8 MG/DL (8.5-10.1); CARBON DIOXIDE LEVEL 43 MEQ/L (21-32); CHLORIDE LEVEL 82 MEQ/L (98-107); CREATININE FOR GFR 1.16 MG/DL (0.70-1.30); GLOMERULAR FILTRATION RATE > 60.0 (>56); GLUCOSE, FASTING 149 MG/DL (70-100); POTASSIUM SERUM 3.7 MEQ/L (3.5-5.1); SODIUM LEVEL 131 MEQ/L (136-145)
[2020-07-11] MEDS: SLF 3 ML SYR IV SCH (20:55)
[2020-07-12] VITALS: BP 125/75
[2020-07-12] MEDS: LEVALBUTEROL 1.25 MG/0.5 ML CONCENTRATE NEB INH SCH ×4 (03:53→15:43)
[2020-07-12] MEDS: DOXYCYCLINE HYCLATE 100 MG in D5W MINI-BAG PLUS 100 ML IV SCH ×2 (04:00→14:36)
[2020-07-12] MEDS: SLF 3 ML SYR IV SCH ×2 (04:42→14:36)
[2020-07-12 04:52] LABS: HEMATOCRIT 58.1 % (42.0-52.0); MEAN CORPUSCULAR HEMOGLOBIN 28.5 pg (27.0-33.0); MEAN CORPUSCULAR VOLUME 92.1 fl (80.0-96.0); PLATELET COUNT, AUTOMATED 347 10^3/uL (150-450); RED BLOOD COUNT 6.31 10^6/uL (4.30-6.10); WHITE BLOOD COUNT 16.1 10^3/uL (4.0-10.0)
[2020-07-12] MEDS: HEPARIN SOD (PORCINE) 5000UNITS/ML 1ML VIAL/SYRINGE SQ SCH ×2 (05:17→14:35)
[2020-07-12 05:46] LABS: BLOOD UREA NITROGEN 35 MG/DL (7-18); CALCIUM LEVEL 9.2 MG/DL (8.5-10.1); CARBON DIOXIDE LEVEL 45 MEQ/L (21-32); CHLORIDE LEVEL 83 MEQ/L (98-107); CREATININE FOR GFR 0.92 MG/DL (0.70-1.30); GLOMERULAR FILTRATION RATE > 60.0 (>56); GLUCOSE, FASTING 126 MG/DL (70-100); SODIUM LEVEL 132 MEQ/L (136-145)
[2020-07-12] MEDS ORDERED: POTASSIUM CHLORIDE 10 MEQ SR TABLET PO ONE (06:00)
[2020-07-12] MEDS ORDERED: metOLazone 5 MG TAB PO ONE (07:30)
[2020-07-12] MEDS: TIOTROPIUM INHALER/CAPSULE (SPIRIVA) INH SCH (07:32)
[2020-07-12] MEDS: HumaLOG INSULIN (NovoLOG) PER UNIT SC SCH ×2 (07:49→12:40)
[2020-07-12 08:00] VITALS: BP 138/90
[2020-07-12] MEDS: FUROSEMIDE 40MG/4ML VIAL (J1940) IV SCH ×3 (08:42→15:47)
[2020-07-12] MEDS ORDERED: POTASSIUM CHLORIDE 10 MEQ SR TABLET PO SCH (09:00)
[2020-07-12] MEDS ORDERED: predniSONE 20 MG TAB PO SCH (09:00)
[2020-07-12] MEDS: ATORVASTATIN 20 MG TAB PO SCH (09:57)
[2020-07-12] MEDS: CitaloPRAM (CeleXA) 20 MG TAB PO SCH (09:57)
[2020-07-12] MEDS: ASPIRIN 81 MG ENTERIC TAB PO SCH (09:59)
[2020-07-12] MEDS: CLOPIDOGREL 75 MG TAB PO SCH (09:59)
--- NOTE | 2020-07-12 10:58 | ECHO ---
DATE OF PROCEDURE: 07/09/2020 Height: 172 cm Weight: 155 kg REFERRING PHYSICIAN: Dr. Keisha Morrison INDICATION: Dyspnea MEASUREMENTS: IVS 1.7 LV 5.6 LVPW 1.6 LA 4.1 Aorta 4.1 IVC 2.5 Mitral E wave velocity 81, A wave 85 E prime septal 7.1 E prime lateral 8.1 FINDINGS: The study is of poor technical quality corresponding to the patient's body habitus. The patient is in sinus rhythm with wide QRS complex. Left ventricle is borderline dilated. There is moderate left ventricle hypertrophy. Unfortunately, due to limitations of the study, I cannot even approximately estimate ejection fraction. Right ventricle was not well seen. Limited views of left atrium appear grossly normal. Right atrium was not well visualized from limited subcostal views, which also appears grossly normal. There are minimal sclerotic abnormalities of the aortic valve, but cusp mobility appears to be preserved. Limited views of mitral valve also appears grossly normal. Right-sided heart valves are not visualized. Trace pericardial effusion is noted. Inferior vena cava is dilated indicative of central venous pressure elevation. Limited Doppler interrogation of aortic valve reveals no stenosis or insufficiency. There is also functionally competent mitral valve. Visualization of right sided heart valve was poor and consequently I cannot comment on their function. Mitral inflow pattern and tissue Doppler imaging of mitral annular revealed a grade 1 diastolic dysfunction. CONCLUSIONS: 1. Study is of markedly limited technical quality corresponding to the patient's body habitus. The patient is in sinus rhythm 2. Borderline dilated left ventricle with moderate left ventricular hypertrophy. Unfortunately, I am unable to estimated systolic function, not even approximately. Grade 1 diastolic dysfunction. 3. Grossly normal function of the aortic and mitral valves. 4. Right-sided heart chambers and valves were very poorly visualized and I cannot comment on their structure. 5. Suggestion of elevated central venous pressure. COMMENTS: Very limited study. Unfortunately, not even approximate information about both right and left ventricular systolic function was obtained. [facility]
[2020-07-12] MEDS: cefTRIAXone SOD 2 GM in D5W MINI-BAG PLUS 50 ML IV SCH (11:14)
[2020-07-12 12:00] VITALS: BP 133/93
[2020-07-12 12:17] LABS: IONIZED CALCIUM 4.1 MG/DL (4.5-5.3)
[2020-07-12 12:49] LABS: BLOOD UREA NITROGEN 35 MG/DL (7-18); CALCIUM LEVEL 9.9 MG/DL (8.5-10.1); CARBON DIOXIDE LEVEL 45 MEQ/L (21-32); CHLORIDE LEVEL 81 MEQ/L (98-107); CREATININE FOR GFR 1.21 MG/DL (0.70-1.30); GLOMERULAR FILTRATION RATE > 60.0 (>56); GLUCOSE, FASTING 154 MG/DL (70-100); POTASSIUM SERUM 3.9 MEQ/L (3.5-5.1); SODIUM LEVEL 130 MEQ/L (136-145)
[2020-07-12] MEDS ORDERED: CALCIUM GLUCONATE 1,000 MG in D5W MINI-BAG PLUS 100 ML IV ONE (13:00)
--- NOTE | 2020-07-13 12:25 | ECGEPIP ---
[facility] - ED Test Date: 2020-07-09 Pat Name: AIDAN GOSS Department: Room: - Gender: Male [employer] Veterinarian: raegan : 1960 Requested By: Farida Jimenez Order Number: [id number] Reading MD: Farida Jimenez Measurements Intervals [place] Rate: 71 P: 261 VT: 207 QRS: 67 QRSD: 134 T: 26 QT: 381 QTc: 415 Interpretive Statements ECTOPIC ATRIAL RHYTHM RIGHT BUNDLE BRANCH BLOCK ABNORMAL ECG SEE SCANNED DOWNTIME REPORT
--- NOTE | 2020-07-30 12:50 | DS ---
DATE OF ADMISSION: 07/09/2020 DATE OF DISCHARGE: 07/12/2020 PRIMARY DISCHARGE DIAGNOSES: 1. Acute chronic obstructive pulmonary disease exacerbation. 2. Community-acquired pneumonia, left lower lobe. 3. Cor pulmonale with right-sided heart failure. 4. Congestive heart failure. 5. Diastolic dysfunction, acute exacerbation. 6. Supermorbid obesity, body mass index of 48.2. 7. Obstructive sleep apnea, noncompliant with continuous positive airway pressure. 8. Secondary polycythemia secondary to end-stage chronic obstructive pulmonary disease and obstructive sleep apnea and pulmonary hypertension. 9. Hypokalemia due to Lasix diuresis. 10. Hyponatremia due to congestive heart failure. 11. Active tobacco abuse. DISCHARGE MEDICATIONS: - moxifloxacin 400 daily. May substitute Levaquin 750 daily as outpatient if not paid for by insurance. - nicotine patch 21 mg daily - prednisone taper - albuterol two puffs four times a day as needed - aspirin 81 daily - atorvastatin 80 mg daily - citalopram 40 daily - Plavix 75 daily - Lasix 40 daily - vitamin D 50,000 units weekly - hydrocodone/acetaminophen one tablet eery 6 as needed - lisinopril one daily - metformin 500 daily - metoprolol 50 daily - potassium 10 mEq daily HOSPITAL COURSE: This is a 59-year-old male who presented to the emergency room with dyspnea on exertion, shortness of breath, paroxysmal nocturnal dyspnea (PND), orthopnea, 3-pillow, actively smoking cigarettes for the past 2 months, worse over the past few days, prompting him to come to the emergency room with a 1-pound weight gain and no relief with his nebulizer and inhalers. Patient was found to have a left lower lobe infiltrate on chest x-ray, wheezing on exam with decreased air entry, and admitted with 3+ lower extremity edema to the sacrum. He was admitted for congestive heart failure, diastolic dysfunction, cor pulmonale, right-sided failure due to severe chronic obstructive pulmonary disease (COPD) and obstructive sleep apnea (ASHWIN) that is untreated. Patient was started on intravenous (IV) ceftriaxone and doxycycline, Solu-Medrol with improvement, diuresis with Lasix and Zaroxolyn with decrease in weight from admission weight of 155.8 kg and discharge weight of 143.8 kg with net-negative balance, daily of -970 mL, negative 5810 mL, negative 5195 mL, with episodes of hyponatremia and hypokalemia. Electrolytes were supplemented and were optimized. Respiratory panel was negative for COVID. Blood cultures were negative. Venous Dopplers, lower extremities: No deep venous thrombosis (DVT). Patient had symptomatic improvement but did require 2 liters nasal cannula due to oxygen saturating down to 86%-87% with ambulation on room air. Since the patient already has oxygen at home with concentrator and portability, he was advised to keep oxygen on during the day until he sees Dr. Ogden in the office. A new application for continuous positive airway pressure (CPAP) was filled out by the patient and prescription to have a repeat sleep study had been given at hospital discharge. He is to followup with Dr. Ogden regarding CPAP settings. DISCHARGE INSTRUCTIONS: A 2-liter fluid restriction, daily weights. Call your physician if more than 3-5 pound weight gain over a few days to adjust your diuretics. Outpatient followup with Dr. Ogden with a new prescription for a sleep study to be done and CPAP settings to be managed by [facility]. PHYSICAL EXAMINATION ON DISCHARGE: Temperature 97.3, pulse 92, respiratory rate 20, blood pressure 138/90, 93% on 3 liters nasal cannula. GENERAL: Patient is awake, alert, oriented times three, answering questions appropriately. No conversational dyspnea. No jugular venous distention (JVD). No thyromegaly. No cervical lymphadenopathy. LUNGS: Clear to auscultation. No wheezing, rales, or rhonchi. HEART: S1, S2, sinus rhythm. No murmur, rubs, or gallops. ABDOMEN: Obese, soft, nontender, nondistended. EXTREMITIES: Trace edema bilaterally. LABORATORY DATA ON DISCHARGE: White count 16, hemoglobin 18, hematocrit 58, platelet count 347. Sodium 132, potassium 3, chloride 83, bicarbonate 45, BUN 35, creatinine 0.92, glucose 126. Microbiology: July 09 respiratory panel negative for COVID. Blood culture: No growth, July 09, two sets. CT chest 07/09/2020: Small amount of atelectasis occurring in the left lower lobe. Right lung demonstrates no definite abnormality given the motion. Heart is unremarkable. No cardiomegaly. No pericardial effusion. Essentially nondiagnostic with left lower lobe infiltrate. TIME SPENT ON DISCHARGE: 30 minutes. [facility]
== END 2020-07-12 16:36 | disposition home or self-care (01) | DRG 193 ==
LOC: M ED 12:24 → M ED INP 14:46 → M PCU 16:13
PROVIDERS: ADMIT General Practice; ATTEND General Practice
DX: J18.9 Pneumonia, unspecified organism (principal); I50.33 Acute on chronic diastolic (congestive) heart failure; J44.1 Chronic obstructive pulmonary disease with (acute) exacerbation; J96.12 Chronic respiratory failure with hypercapnia; Z68.43 Body mass index [BMI] 50.0-59.9, adult; E66.2 Morbid (severe) obesity with alveolar hypoventilation; G47.33 Obstructive sleep apnea (adult) (pediatric); D75.1 Secondary polycythemia; I11.0 Hypertensive heart disease with heart failure; E78.5 Hyperlipidemia, unspecified; I25.10 Atherosclerotic heart disease of native coronary artery without angina pectoris; F17.200 Nicotine dependence, unspecified, uncomplicated; Z95.2 Presence of prosthetic heart valve; I27.20 Pulmonary hypertension, unspecified; I27.81 Cor pulmonale (chronic); Z91.19 Patient's noncompliance with other medical treatment and regimen; I71.9 Aortic aneurysm of unspecified site, without rupture; Z79.82 Long term (current) use of aspirin; Z79.899 Other long term (current) drug therapy; E11.9 Type 2 diabetes mellitus without complications; K64.8 Other hemorrhoids; E55.9 Vitamin D deficiency, unspecified; D72.829 Elevated white blood cell count, unspecified

== ENCOUNTER → 2020-07-19 | Outpatient (REF) | payer MEDICARE ==
[~2020-07-19] MED LIST changes: +ATOR80TA59 PO; +CITA40TA4 PO; +METO1TAB7 PO; +MOXI1TAB PO; +NICO21PAT TD; +PRED10TA2 PO; +VITA50005 PO
[2020-07-19 16:53] LABS: BASO # 0.1 10^3/uL (0.0-0.2); BASO % 0.6 % (0.0-1.0); EOS # 0.1 10^3/uL (0.0-0.5); EOS % 0.6 % (0.0-3.0); HEMATOCRIT 61.5 % (42.0-52.0); HEMOGLOBIN 17.9 g/dl (13.5-17.5); LYMPH # 1.1 10^3/uL (1.5-5.0); LYMPH % 7.9 % (24.0-44.0); MEAN CORPUSCULAR HEMOGLOBIN 27.6 pg (27.0-33.0); MEAN CORPUSCULAR HGB CONC 29.1 g/dl (32.0-36.5); MEAN CORPUSCULAR VOLUME 94.9 fl (80.0-96.0); MONO # 0.7 10^3/uL (0.0-0.8); MONO % 4.6 % (0.0-5.0); NEUTROPHILS # 12.3 10^3/uL (1.5-8.5); PLATELET COUNT, AUTOMATED 367 10^3/uL (150-450); RED BLOOD COUNT 6.48 10^6/uL (4.30-6.10); WHITE BLOOD COUNT 14.5 10^3/uL (4.0-10.0)
[2020-07-19 16:58] LABS: ALBUMIN 3.5 GM/DL (3.2-5.2); ALT/SGPT 50 U/L (12-78); BILIRUBIN,TOTAL 0.8 MG/DL (0.2-1.0); BLOOD UREA NITROGEN 22 MG/DL (7-18); CALCIUM LEVEL 9.3 MG/DL (8.5-10.1); CARBON DIOXIDE LEVEL 38 MEQ/L (21-32); CHLORIDE LEVEL 95 MEQ/L (98-107); CREATININE FOR GFR 0.96 MG/DL (0.70-1.30); GLOMERULAR FILTRATION RATE > 60.0 (>56); GLUCOSE, FASTING 174 MG/DL (70-100); POTASSIUM SERUM 5.5 MEQ/L (3.5-5.1); SODIUM LEVEL 133 MEQ/L (136-145); TOTAL PROTEIN 6.8 GM/DL (6.4-8.2)
== END ==
LOC: M SFHCCLAY 16:08
PROVIDERS: ATTEND Physician Assistant
DX: D75.1 Secondary polycythemia (principal); I50.20 Unspecified systolic (congestive) heart failure

== ENCOUNTER → 2020-07-30 | Outpatient (REF) | payer MEDICARE ==
[2020-07-30 13:03] LABS: BASO # 0.1 10^3/uL (0.0-0.2); BASO % 0.7 % (0.0-1.0); EOS # 0.2 10^3/uL (0.0-0.5); HEMATOCRIT 58.9 % (42.0-52.0); HEMOGLOBIN 16.9 g/dl (13.5-17.5); LYMPH # 1.3 10^3/uL (1.5-5.0); LYMPH % 12.5 % (24.0-44.0); MEAN CORPUSCULAR HEMOGLOBIN 27.6 pg (27.0-33.0); MEAN CORPUSCULAR HGB CONC 28.7 g/dl (32.0-36.5); MEAN CORPUSCULAR VOLUME 96.2 fl (80.0-96.0); MONO # 0.7 10^3/uL (0.0-0.8); MONO % 6.4 % (0.0-5.0); NEUTROPHILS # 8.4 10^3/uL (1.5-8.5); NEUTROPHILS % 77.9 % (36.0-66.0); PLATELET COUNT, AUTOMATED 245 10^3/uL (150-450); RED BLOOD COUNT 6.12 10^6/uL (4.30-6.10); WHITE BLOOD COUNT 10.7 10^3/uL (4.0-10.0)
[2020-07-30 13:34] LABS: ALBUMIN 3.2 GM/DL (3.2-5.2); ALT/SGPT 39 U/L (12-78); BILIRUBIN,TOTAL 0.5 MG/DL (0.2-1.0); BLOOD UREA NITROGEN 18 MG/DL (7-18); CARBON DIOXIDE LEVEL 40 MEQ/L (21-32); CHLORIDE LEVEL 97 MEQ/L (98-107); CREATININE FOR GFR 0.88 MG/DL (0.70-1.30); CREATININE, URINE 94.7 MG/DL; FREE T4 0.91 NG/DL (0.76-1.46); GLOMERULAR FILTRATION RATE > 60.0 (>56); GLUCOSE, FASTING 128 MG/DL (70-100); MALB URINE SIEMENS 30.4 MG/L; MAU/CREAT RATIO 32.1 MCG/MG (0.0-30.0); POTASSIUM SERUM 4.6 MEQ/L (3.5-5.1); SODIUM LEVEL 138 MEQ/L (136-145); TOTAL 25(OH) VITAMIN D 56.1 NG/ML (30.0-100.0); TOTAL PROTEIN 6.5 GM/DL (6.4-8.2)
== END ==
LOC: M SFHCCLAY 08:22
PROVIDERS: ATTEND Physician Assistant
DX: E87.5 Hyperkalemia (principal); D75.1 Secondary polycythemia; E78.5 Hyperlipidemia, unspecified; E11.9 Type 2 diabetes mellitus without complications; E55.9 Vitamin D deficiency, unspecified

== ENCOUNTER → 2020-07-30 | Outpatient (CLI) | payer MEDICARE ==
--- NOTE | 2020-08-02 14:25 | SLEEPCENT ---
DATE: 07/30/2020 ORDERED BY: Abhinav Calixto Nocturnal polysomnography was performed for the retitration of pressure therapy in this patient with a prior history of severe obstructive sleep apnea syndrome. Also suffers from obstructive lung disease and possibly obesity hypoventilation syndrome. For testing, a ResMed Quattro full-face mask of large size was used. There was 10 cm of water pressure initially applied to the circuit, and the lights were extinguished. There was 8 hours and 1 minute of data reviewed. There was 442.5 minutes of sleep identified. Sleep latency was short at 1 minute. REM latency was normal at 76 minutes. Sleep architecture was fairly good. There were three REM cycles noted. Overall sleep efficiency was 92.5%. The electrocardiogram showed a sinus rhythm with mildly widened complexes. Average heart rate 68 beats per minute . EEG showed normal waveforms for wake and sleep. Persistent respiratory events prompted an increase in CPAP pressure to the best pressure of 15. Despite optimal CPAP pressure, oxygen desaturations prompted the addition of supplemental oxygen. Best sleep was seen on a CPAP pressure of +15 with 5 liters of oxygen bled through the system. There was some significant limb activity despite optimal CPAP pressure. The limb movement arousal index was only 4.5. IMPRESSION: Obstructive sleep apnea syndrome (G47.33). RECOMMENDATION: Initiation of pressure therapy at 15 cm would seem reasonable based on the results of this titration study Supplemental oxygen will be needed, and best saturations were seen at a liter flow rate of 5. Should the patient have persistent symptoms despite the use of CPAP 15 with 5 liters of oxygen, retitration might be considered using a bilevel device. MTDD
== END ==
LOC: M SLEEP 20:00
PROVIDERS: ATTEND Physician Assistant
DX: G47.33 Obstructive sleep apnea (adult) (pediatric) (principal); E87.5 Hyperkalemia; D75.1 Secondary polycythemia; E78.5 Hyperlipidemia, unspecified; E11.9 Type 2 diabetes mellitus without complications; E55.9 Vitamin D deficiency, unspecified

== ENCOUNTER → 2020-12-31 | Outpatient (REF) | payer MEDICARE ==
[~2020-12-31] MED LIST changes: -LISI-538 PO; +LISI20TA33 PO
[2020-12-31 11:24] LABS: BASO # 0.1 10^3/uL (0.0-0.2); BASO % 0.5 % (0.0-1.0); EOS # 0.3 10^3/uL (0.0-0.5); HEMATOCRIT 59.3 % (42.0-52.0); LYMPH # 1.5 10^3/uL (1.5-5.0); LYMPH % 16.1 % (24.0-44.0); MEAN CORPUSCULAR HEMOGLOBIN 29.9 pg (27.0-33.0); MEAN CORPUSCULAR HGB CONC 30.4 g/dl (32.0-36.5); MEAN CORPUSCULAR VOLUME 98.3 fl (80.0-96.0); MONO # 0.7 10^3/uL (0.0-0.8); MONO % 7.6 % (2.0-8.0); NEUTROPHILS # 6.9 10^3/uL (1.5-8.5); NEUTROPHILS % 72.5 % (36.0-66.0); PLATELET COUNT, AUTOMATED 241 10^3/uL (150-450); RED BLOOD COUNT 6.03 10^6/uL (4.30-6.10); WHITE BLOOD COUNT 9.6 10^3/uL (4.0-10.0)
[2020-12-31 11:51] LABS: HEMOGLOBIN A1c 6.9 %
[2020-12-31 12:02] LABS: CREATININE, URINE 33.5 MG/DL; MALB URINE SIEMENS 41.1 MG/L; MAU/CREAT RATIO 122.6 MCG/MG (0.0-30.0)
[2020-12-31 12:15] LABS: ALBUMIN 3.7 GM/DL (3.2-5.2); ALT/SGPT 23 U/L (12-78); BILIRUBIN,TOTAL 0.5 MG/DL (0.2-1.0); BLOOD UREA NITROGEN 10 MG/DL (7-18); CALCIUM LEVEL 9.3 MG/DL (8.8-10.2); CARBON DIOXIDE LEVEL 38 MEQ/L (21-32); CHLORIDE LEVEL 98 MEQ/L (98-107); CHOLESTEROL LEVEL 155 MG/DL (<200); CHOLESTEROL RISK RATIO 4.558 (<5); GLOMERULAR FILTRATION RATE > 60.0 (>49); GLUCOSE, FASTING 139 MG/DL (70-100); HDL CHOLESTEROL 34 MG/DL (>40); LDL CHOLESTEROL 98 MG/DL (<100); NON-HDL-C 121 MG/DL; POTASSIUM SERUM 4.9 MEQ/L (3.5-5.1); SODIUM LEVEL 139 MEQ/L (136-145); TOTAL 25(OH) VITAMIN D 72.9 NG/ML (30.0-100.0); TOTAL PROTEIN 7.1 GM/DL (6.4-8.2); TRIGLYCERIDES LEVEL 113 MG/DL (<150)
== END ==
LOC: M SFHCCAPE 07:33
PROVIDERS: ATTEND Physician Assistant
DX: I10 Essential (primary) hypertension (principal); E11.9 Type 2 diabetes mellitus without complications; E55.9 Vitamin D deficiency, unspecified

== ENCOUNTER → 2021-01-02 | Outpatient (CLI) | payer MEDICARE ==
--- NOTE | 2021-01-02 08:43 | REP ---
INDICATION: ABN FINDINGS LUNG FELIX COMPARISON: 07/09/2020 TECHNIQUE: Axial noncontrast images from the thoracic inlet to the upper abdomen with coronal and sagittal reformations. This CT examination was performed using the following dose reduction techniques: Automated exposure control, adjustment of mA and/or kv according to the patient's size, and use of iterative reconstruction technique. FINDINGS: Mild linear left upper lobe and left lower lobe fibroatelectatic changes are identified and likely chronic when compared with prior examination. Minimal posterior basilar dependent changes are also identified without further consolidation. No effusion or pneumothorax. Tracheobronchial tree is patent. Few small noncalcified nodules are identified including 6 mm nodule in the perihilar right middle lobe (series 201, image 50) and 3 mm nodule in the basilar right upper lobe (series 201; image 47). Mediastinum demonstrates relatively stable atherosclerotic changes to the thoracic aorta and coronary arteries without aortic aneurysm or cardiomegaly. No significant pericardial effusion. No obvious mediastinal or hilar adenopathy noted. Surrounding musculoskeletal structures demonstrate age-related degenerative changes. Upper abdomen includes benign appearing left adrenal adenoma. IMPRESSION: 1. Minimal presumed chronic fibroatelectatic changes primarily in the left lower lung zone and similar to prior examination. No new acute consolidation. 2. Small noncalcified nodules measuring 6 mm and 3 mm. These findings are poorly identified on prior examination due to extensive respiratory motion. 6-9 month follow-up examination may be warranted to confirm stability. <Electronically signed by Kt aCstillo > 01/02/21 0831
== END ==
LOC: M RAD 08:07
PROVIDERS: ATTEND Physician Assistant
DX: R91.8 Other nonspecific abnormal finding of lung field (principal)

== ENCOUNTER → 2021-12-31 | Outpatient (CLI) | payer MEDICARE ==
[~2021-12-31] MED LIST changes: -CITA40TA4 PO; +CITA40TA7 PO; +ERGO500029 PO; +METF500T13 PO; -VITA50005 PO
== END ==
LOC: M RAD 08:37
PROVIDERS: ATTEND Physician Assistant
DX: R91.8 Other nonspecific abnormal finding of lung field (principal)

== ENCOUNTER → 2022-01-13 | Outpatient (REF) | payer MEDICARE ==
[~2022-01-13] MED LIST changes: +INCR1INH; +PRED20TA PO
[2022-01-13 16:19] LABS: BASO # 0.1 10^3/uL (0.0-0.2); BASO % 0.6 % (0.0-1.0); EOS # 0.2 10^3/uL (0.0-0.5); EOS % 2.4 % (0.0-3.0); HEMATOCRIT 62.5 % (42.0-52.0); HEMOGLOBIN 18.3 g/dl (13.5-17.5); LYMPH # 1.6 10^3/uL (1.5-5.0); LYMPH % 16.2 % (24.0-44.0); MEAN CORPUSCULAR HEMOGLOBIN 29.8 pg (27.0-33.0); MEAN CORPUSCULAR HGB CONC 29.3 g/dl (32.0-36.5); MEAN CORPUSCULAR VOLUME 101.6 fl (80.0-96.0); MONO # 0.8 10^3/uL (0.0-0.8); MONO % 8.3 % (2.0-8.0); NEUTROPHILS # 7.3 10^3/uL (1.5-8.5); NEUTROPHILS % 72.1 % (36.0-66.0); PLATELET COUNT, AUTOMATED 256 10^3/uL (150-450); RED BLOOD COUNT 6.15 10^6/uL (4.30-6.10); WHITE BLOOD COUNT 10.1 10^3/uL (4.0-10.0)
[2022-01-13 16:21] LABS: CREATININE, URINE 64.5 MG/DL; MAU/CREAT RATIO 365.8 MCG/MG (0.0-30.0)
[2022-01-13 17:00] LABS: HEMOGLOBIN A1c 6.3 %
[2022-01-13 17:11] LABS: ALT/SGPT 29 U/L (12-78); BILIRUBIN,TOTAL 0.7 MG/DL (0.2-1.0); BLOOD UREA NITROGEN 12 MG/DL (7-18); CALCIUM LEVEL 9.3 MG/DL (8.8-10.2); CARBON DIOXIDE LEVEL 41 MEQ/L (21-32); CHLORIDE LEVEL 94 MEQ/L (98-107); CREATININE FOR GFR 0.91 MG/DL (0.70-1.30); GLOMERULAR FILTRATION RATE > 60.0 (>49); GLUCOSE, FASTING 115 MG/DL (70-100); POTASSIUM SERUM 4.9 MEQ/L (3.5-5.1); SODIUM LEVEL 137 MEQ/L (136-145)
[2022-01-13 17:12] LABS: ALBUMIN 3.5 GM/DL (3.2-5.2); CHOLESTEROL LEVEL 138 MG/DL (<200); CHOLESTEROL RISK RATIO 4.058 (<5); HDL CHOLESTEROL 34 MG/DL (>40); LDL CHOLESTEROL 84 MG/DL (<100); NON-HDL-C 104 MG/DL; TOTAL 25(OH) VITAMIN D 30.7 NG/ML (30.0-100.0); TOTAL PROTEIN 7.2 GM/DL (6.4-8.2); TRIGLYCERIDES LEVEL 98 MG/DL (<150)
== END ==
LOC: M SFHCCAPE 07:40
PROVIDERS: ATTEND Physician Assistant
DX: E55.9 Vitamin D deficiency, unspecified (principal); E11.9 Type 2 diabetes mellitus without complications; Z12.5 Encounter for screening for malignant neoplasm of prostate

== ENCOUNTER 2022-01-15 11:36 | Emergency (ER) | payer MEDICARE ==
[~2022-01-15] VITALS: Ht 170.2 cm; Wt 157.3 kg
[~2022-01-15 11:36] MED LIST changes: -INCR1INH; -PRED20TA PO
[2022-01-15] MEDS ORDERED: INCR1INH (11:44)
[2022-01-15] MEDS ORDERED: methylPREDNISolone 125MG 2ML VIAL IV ONE (12:20)
[2022-01-15 12:29] LABS: VENOUS BASE EXCESS 6.9 (-2.0-2.0); VENOUS HCO3 38.4 MEQ/L (23.0-27.0); VENOUS PARTIAL PRESSURE CO2 83.8 mmHg (38.0-50.0); VENOUS PARTIAL PRESSURE O2 38.3 mmHg (30.0-50.0); VENOUS PH 7.279 UNITS (7.330-7.430); VENOUS STANDARD HCO3 29.9 MEQ/L
[2022-01-15 12:31] LABS: BASO % 0.4 % (0.0-1.0); EOS # 0.2 10^3/uL (0.0-0.5); EOS % 1.5 % (0.0-3.0); HEMATOCRIT 61.7 % (42.0-52.0); HEMOGLOBIN 18.1 g/dl (13.5-17.5); LYMPH # 1.2 10^3/uL (1.5-5.0); LYMPH % 11.4 % (24.0-44.0); MEAN CORPUSCULAR HEMOGLOBIN 29.1 pg (27.0-33.0); MEAN CORPUSCULAR HGB CONC 29.3 g/dl (32.0-36.5); MEAN CORPUSCULAR VOLUME 99.4 fl (80.0-96.0); MONO # 0.6 10^3/uL (0.0-0.8); MONO % 5.7 % (2.0-8.0); NEUTROPHILS # 8.1 10^3/uL (1.5-8.5); NEUTROPHILS % 80.6 % (36.0-66.0); PLATELET COUNT, AUTOMATED 221 10^3/uL (150-450); RED BLOOD COUNT 6.21 10^6/uL (4.30-6.10); WHITE BLOOD COUNT 10.1 10^3/uL (4.0-10.0)
[2022-01-15 12:44] LABS: INR 0.95; PROTHROMBIN TIME 13.1 SECONDS (12.7-14.5)
[2022-01-15 13:05] LABS: CK-MB VALUE MASS 3.4 NG/ML (<3.6); MB/CK RELATIVE INDEX 3.4 (< OR =4)
[2022-01-15 13:10] LABS: ALBUMIN 3.4 GM/DL (3.2-5.2); ALT/SGPT 26 U/L (12-78); BILIRUBIN,DIRECT 0.2 MG/DL (0.0-0.2); BILIRUBIN,TOTAL 0.7 MG/DL (0.2-1.0); BLOOD UREA NITROGEN 11 MG/DL (7-18); CALCIUM LEVEL 8.9 MG/DL (8.8-10.2); CARBON DIOXIDE LEVEL 44 MEQ/L (21-32); CHLORIDE LEVEL 96 MEQ/L (98-107); CREATININE FOR GFR 0.87 MG/DL (0.70-1.30); GLOMERULAR FILTRATION RATE > 60.0 (>49); GLUCOSE, FASTING 169 MG/DL (70-100); NT-PRO BNP 1419 PG/ML (<125); POTASSIUM SERUM 4.8 MEQ/L (3.5-5.1); SODIUM LEVEL 139 MEQ/L (136-145); TOTAL PROTEIN 6.7 GM/DL (6.4-8.2)
[2022-01-15] MEDS ORDERED: PRED20TA PO (14:07)
[2022-01-15 14:15] VITALS: BP 141/82
== END 2022-01-15 14:32 | disposition home or self-care (01) ==
LOC: M ED 11:36
DX: J44.1 Chronic obstructive pulmonary disease with (acute) exacerbation (principal); J96.12 Chronic respiratory failure with hypercapnia; R94.31 Abnormal electrocardiogram [ECG] [EKG]; I10 Essential (primary) hypertension; E78.5 Hyperlipidemia, unspecified; J98.9 Respiratory disorder, unspecified; F17.200 Nicotine dependence, unspecified, uncomplicated; K21.9 Gastro-esophageal reflux disease without esophagitis; Z86.79 Personal history of other diseases of the circulatory system; Z95.5 Presence of coronary angioplasty implant and graft; Z79.899 Other long term (current) drug therapy
CPT/HCPCS: 71045; 80048; 80076; 82550; 82553; 82803; 83605; 83880; 84443; 84484; 85025; 85610; 87040; 87798; 93005; 93041; 96374; 99285; J2930

== ENCOUNTER 2022-03-28 18:06 | Emergency (ER) | payer MEDICARE ==
[~2022-03-28] VITALS: Ht 172.7 cm; Wt 155.1 kg
[~2022-03-28 18:06] MED LIST changes: +INCR1INH; +PRED20TA PO
[2022-03-28] MEDS ORDERED: LIDOCAINE W/EPINEPHRINE 1% 20ML VIAL As Ordered ONE (20:20)
[2022-03-28] MEDS ORDERED: NORCO, ANEXSIA 5/325MG TABLET (HYDROcodone/ACETAMINOPHEN) PO ONE (20:20)
[2022-03-28] MEDS ORDERED: LIDOCAINE W/EPINEPHRINE 1% 20ML VIAL SC ONE (20:20)
[2022-03-28] MEDS ORDERED: CLINDAMYCIN 150MG CAPSULE PO ONE (20:20)
[2022-03-28] MEDS ORDERED: CLEO300C2 PO (20:43)
[2022-03-28] MEDS ORDERED: HYDR-3713 PO (20:43)
[2022-03-28] MEDS ORDERED: NORCO 5/325MG TABLET (HOME DOSE PACK) PO ONE (20:50)
[2022-03-28 20:55] VITALS: BP 122/69
== END 2022-03-28 20:59 | disposition home or self-care (01) ==
LOC: M ED 18:06
DX: L02.31 Cutaneous abscess of buttock (principal); I10 Essential (primary) hypertension; Z86.79 Personal history of other diseases of the circulatory system; E78.5 Hyperlipidemia, unspecified; K21.9 Gastro-esophageal reflux disease without esophagitis; J44.9 Chronic obstructive pulmonary disease, unspecified; F17.200 Nicotine dependence, unspecified, uncomplicated; Z79.811 Long term (current) use of aromatase inhibitors; Z79.899 Other long term (current) drug therapy

== ENCOUNTER 2022-04-12 14:47 | Inpatient (IN) | payer MEDICARE ==
[~2022-04-12] VITALS: Ht 167.6 cm; Wt 106.3 kg
[~2022-04-12 14:47] MED LIST changes: +CLEO300C2 PO; +HYDR-3713 PO
[2022-04-12 16:01] LABS: BASO # 0.1 10^3/uL (0.0-0.2); BASO % 0.3 % (0.0-1.0); EOS # 0.1 10^3/uL (0.0-0.5); EOS % 0.3 % (0.0-3.0); HEMATOCRIT 53.2 % (42.0-52.0); HEMOGLOBIN 16.8 g/dl (13.5-17.5); LYMPH # 0.8 10^3/uL (1.5-5.0); LYMPH % 4.4 % (24.0-44.0); MEAN CORPUSCULAR HEMOGLOBIN 30.1 pg (27.0-33.0); MEAN CORPUSCULAR HGB CONC 31.6 g/dl (32.0-36.5); MEAN CORPUSCULAR VOLUME 95.3 fl (80.0-96.0); MONO # 0.7 10^3/uL (0.0-0.8); MONO % 3.7 % (2.0-8.0); NEUTROPHILS # 16.6 10^3/uL (1.5-8.5); NEUTROPHILS % 90.7 % (36.0-66.0); PLATELET COUNT, AUTOMATED 368 10^3/uL (150-450); RED BLOOD COUNT 5.58 10^6/uL (4.30-6.10); WHITE BLOOD COUNT 18.3 10^3/uL (4.0-10.0)
[2022-04-12 16:23] LABS: CK-MB VALUE MASS 2.6 NG/ML (<3.6); MB/CK RELATIVE INDEX 2.26 (< OR =4)
[2022-04-12 16:24] LABS: ALBUMIN 3.5 GM/DL (3.2-5.2); ALT/SGPT 23 U/L (12-78); BILIRUBIN,DIRECT 0.3 MG/DL (0.0-0.2); BILIRUBIN,TOTAL 0.8 MG/DL (0.2-1.0); BLOOD UREA NITROGEN 9 MG/DL (7-18); CALCIUM LEVEL 9.7 MG/DL (8.8-10.2); CARBON DIOXIDE LEVEL 32 MEQ/L (21-32); CHLORIDE LEVEL 99 MEQ/L (98-107); GLOMERULAR FILTRATION RATE > 60.0 (>49); GLUCOSE, FASTING 123 MG/DL (70-100); NT-PRO BNP 498 PG/ML (<125); POTASSIUM SERUM 4.5 MEQ/L (3.5-5.1); SODIUM LEVEL 138 MEQ/L (136-145); TOTAL PROTEIN 7.4 GM/DL (6.4-8.2)
[2022-04-12] MEDS ORDERED: ONDANSETRON 4MG 2ML VIAL IV ONE (17:10)
[2022-04-12] MEDS ORDERED: CLINDAMYCIN 900 MG in IV 1 EA IV ONE (17:10)
[2022-04-12] MEDS ORDERED: MORPHINE 4 MG/ML 1ML VIAL/SYRINGE IV ONE (17:10)
[2022-04-12] MEDS ORDERED: ISOVUE-370 76% 100ML VIAL As Ordered ONE (17:10)
[2022-04-12] MEDS ORDERED: GLUCOSE 4GM CHEW TABLET PO PRN (18:55)
[2022-04-12] MEDS ORDERED: GLUCAGON INJ 1MG VIAL SC PRN (18:55)
[2022-04-12] MEDS ORDERED: DEXTROSE 50% 50 ML SYRINGE IV PRN (18:55)
[2022-04-12] MEDS ORDERED: ALBUTEROL 90 MCG/ACT 8GM HFA INHALER INH PRN (18:55)
[2022-04-12] MEDS ORDERED: CITA20TA6 PO (19:40)
[2022-04-12] MEDS ORDERED: HOME MED LIST COMPLETE! XX SCH (19:45)
[2022-04-12 19:52] LABS: C REACTIVE PROTEIN QUANTITATIV 3.42 MG/DL (0.00-0.30)
[2022-04-12] MEDS ORDERED: VANCOMYCIN HCL 1,000 MG, VIAL MATE ADAPTER 1 EACH in NS 250 ML IV ONE ×2 (20:00→21:00)
[2022-04-12] MEDS ORDERED: MOM 30ML SUSPENSION UDC PO ONE (20:00)
[2022-04-12 20:30] LABS: ERYTHROCYTE SEDIMENTATION RATE 15 mm/hr (0-20)
[2022-04-12] MEDS: CLOPIDOGREL 75 MG TAB PO SCH (20:55)
[2022-04-12] MEDS: INSULIN LISPRO (NovoLOG) PER UNIT SC SCH (21:00)
[2022-04-12] MEDS: METOPROLOL TART 50 MG TAB PO SCH (21:12)
[2022-04-12] MEDS: PERCOCET 5MG/325MG TAB PO PRN (21:38)
[2022-04-12 22:00] VITALS: BP 148/84
[2022-04-12] MEDS: ATORVASTATIN 20 MG TAB PO SCH (22:20)
[2022-04-12] MEDS: HEPARIN SOD (PORCINE) 5000UNITS/ML 1ML VIAL/SYRINGE SQ SCH (22:20)
[2022-04-12] MEDS: SENOKOT S TAB PO SCH (22:20)
[2022-04-13] MEDS ORDERED: MORPHINE 2 MG/ML 1ML VIAL IV ONE (01:00)
[2022-04-13] MEDS ORDERED: VANCOMYCIN HCL 1,000 MG, VIAL MATE ADAPTER 1 EACH in NS 250 ML IV SCH (04:00)
[2022-04-13] MEDS ORDERED: VANCOMYCIN HCL 500 MG in D5W MINI-BAG PLUS 100 ML IV SCH (05:00)
[2022-04-13 05:16] VITALS: BP 149/85
[2022-04-13] MEDS: HEPARIN SOD (PORCINE) 5000UNITS/ML 1ML VIAL/SYRINGE SQ SCH ×3 (05:20→22:12)
[2022-04-13] MEDS: PERCOCET 5MG/325MG TAB PO PRN ×4 (05:32→20:27)
[2022-04-13 06:27] LABS: BASO % 0.2 % (0.0-1.0); EOS % 0.1 % (0.0-3.0); HEMOGLOBIN 16.6 g/dl (13.5-17.5); LYMPH # 0.7 10^3/uL (1.5-5.0); LYMPH % 3.8 % (24.0-44.0); MEAN CORPUSCULAR HGB CONC 30.7 g/dl (32.0-36.5); MEAN CORPUSCULAR VOLUME 97.6 fl (80.0-96.0); MONO # 0.9 10^3/uL (0.0-0.8); MONO % 4.7 % (2.0-8.0); NEUTROPHILS # 17.3 10^3/uL (1.5-8.5); NEUTROPHILS % 90.5 % (36.0-66.0); PLATELET COUNT, AUTOMATED 366 10^3/uL (150-450); RED BLOOD COUNT 5.53 10^6/uL (4.30-6.10); WHITE BLOOD COUNT 19.1 10^3/uL (4.0-10.0)
[2022-04-13 07:00] LABS: ALBUMIN 3.2 GM/DL (3.2-5.2); ALT/SGPT 26 U/L (12-78); BILIRUBIN,TOTAL 0.8 MG/DL (0.2-1.0); BLOOD UREA NITROGEN 10 MG/DL (7-18); CALCIUM LEVEL 9.2 MG/DL (8.8-10.2); CARBON DIOXIDE LEVEL 34 MEQ/L (21-32); CHLORIDE LEVEL 95 MEQ/L (98-107); CREATININE FOR GFR 0.69 MG/DL (0.70-1.30); GLOMERULAR FILTRATION RATE > 60.0 (>49); GLUCOSE, FASTING 114 MG/DL (70-100); MAGNESIUM LEVEL 1.9 MG/DL (1.8-2.4); PHOSPHORUS LEVEL 4.7 MG/DL (2.5-4.9); POTASSIUM SERUM 5.2 MEQ/L (3.5-5.1); SODIUM LEVEL 136 MEQ/L (136-145)
[2022-04-13] MEDS: INSULIN LISPRO (NovoLOG) PER UNIT SC SCH ×4 (08:06→20:06)
[2022-04-13] MEDS: MIRALAX *UNIT DOSE* 17GM PACKET PO SCH (08:15)
[2022-04-13] MEDS: SENOKOT S TAB PO SCH ×2 (08:19→20:26)
[2022-04-13] MEDS: CLOPIDOGREL 75 MG TAB PO SCH (08:19)
[2022-04-13] MEDS: METOPROLOL TART 50 MG TAB PO SCH (08:22)
[2022-04-13] MEDS ORDERED: FUROSEMIDE 40 MG TAB PO SCH (09:00)
[2022-04-13] MEDS ORDERED: LORazepam 0.5 MG TAB PO ONE (10:35)
[2022-04-13] MEDS: CitaloPRAM (CeleXA) 20 MG TAB PO SCH (13:51)
[2022-04-13] MEDS: ASPIRIN 81 MG CHEW TABLET PO SCH (13:51)
[2022-04-13] MEDS: TAMSULOSIN 0.4 MG CAP PO SCH (13:51)
[2022-04-13 13:55] VITALS: BP 144/84
[2022-04-13] MEDS: IPRATROPIUM 0.5MG/ALBUTEROL 2.5MG INH SOL UD 3ML (DUONEB) NEB SCH ×2 (14:00→20:07)
[2022-04-13 14:17] LABS: LIPASE 502 U/L (73-393)
[2022-04-13] MEDS: VANCOMYCIN HCL 1,000 MG, VIAL MATE ADAPTER 1 EACH in NS 250 ML IV SCH ×2 (14:54→22:12)
[2022-04-13] MEDS: VANCOMYCIN HCL 500 MG in D5W MINI-BAG PLUS 100 ML IV SCH (14:55)
[2022-04-13 17:28] LABS: APPEARANCE, URINE HAZY (CLEAR); BACTERIA, URINE AUTO NEGATIVE (NEGATIVE); BILIRUBIN, URINE AUTO NEGATIVE (NEGATIVE); BLOOD, URINE BLOOD NEGATIVE (NEGATIVE); COLOR, URINE YELLOW (YELLOW); GLUCOSE, URINE (UA) AUTO NEGATIVE (NEGATIVE); KETONE, URINE AUTO NEGATIVE (NEGATIVE); LEUKOCYTE ESTERASE, URINE AUTO NEGATIVE (NEGATIVE); MUCUS, URINE SMALL (NEGATIVE); NITRITE, URINE AUTO NEGATIVE (NEGATIVE); PROTEIN, URINE AUTO 1+ mg/dL (NEGATIVE); RBC, URINE AUTO 0 /HPF (0-3); SPECIFIC GRAVITY URINE AUTO 1.015 (1.002-1.035); SQUAMOUS EPITHELIAL CELL UR AU 1 /HPF (0-6); UROBILINOGEN, URINE AUTO 0.2 mg/dL (0.0-2.0); WBC, URINE AUTO 1 /HPF (0-3)
[2022-04-13] MEDS: FUROSEMIDE 40 MG TAB PO SCH (17:50)
[2022-04-13 19:53] VITALS: BP 130/78
[2022-04-13] MEDS ORDERED: MORPHINE 2 MG/ML 1ML VIAL IV PRN (20:10)
[2022-04-13] MEDS: ATORVASTATIN 20 MG TAB PO SCH (20:26)
[2022-04-14] MEDS: PERCOCET 5MG/325MG TAB PO PRN ×3 (00:25→22:10)
[2022-04-14] MEDS: VANCOMYCIN HCL 500 MG in D5W MINI-BAG PLUS 100 ML IV SCH ×3 (00:26→17:54)
[2022-04-14] MEDS: IPRATROPIUM 0.5MG/ALBUTEROL 2.5MG INH SOL UD 3ML (DUONEB) NEB SCH ×4 (01:13→19:43)
[2022-04-14] MEDS ORDERED: MORPHINE 2 MG/ML 1ML VIAL IV ONE (02:00)
[2022-04-14] MEDS: carisoprodoL 350 MG TAB PO PRN ×2 (04:44→19:02)
[2022-04-14 05:37] VITALS: BP 124/57
[2022-04-14] MEDS: HEPARIN SOD (PORCINE) 5000UNITS/ML 1ML VIAL/SYRINGE SQ SCH ×3 (06:00→22:10)
[2022-04-14] MEDS: VANCOMYCIN HCL 1,000 MG, VIAL MATE ADAPTER 1 EACH in NS 250 ML IV SCH ×2 (07:00→16:23)
[2022-04-14] MEDS ORDERED: traMADol 50 MG TAB PO ONE (07:00)
[2022-04-14] MEDS: INSULIN LISPRO (NovoLOG) PER UNIT SC SCH ×4 (07:30→21:00)
[2022-04-14 08:03] LABS: HEMATOCRIT 47.8 % (42.0-52.0); MEAN CORPUSCULAR HEMOGLOBIN 30.2 pg (27.0-33.0); MEAN CORPUSCULAR HGB CONC 31.4 g/dl (32.0-36.5); MEAN CORPUSCULAR VOLUME 96.2 fl (80.0-96.0); PLATELET COUNT, AUTOMATED 277 10^3/uL (150-450); RED BLOOD COUNT 4.97 10^6/uL (4.30-6.10); WHITE BLOOD COUNT 14.9 10^3/uL (4.0-10.0)
[2022-04-14 08:22] LABS: ERYTHROCYTE SEDIMENTATION RATE 18 mm/hr (0-20)
[2022-04-14 08:40] LABS: ALBUMIN 2.8 GM/DL (3.2-5.2); ALT/SGPT 18 U/L (12-78); BLOOD UREA NITROGEN 17 MG/DL (7-18); CARBON DIOXIDE LEVEL 32 MEQ/L (21-32); CHLORIDE LEVEL 94 MEQ/L (98-107); CREATININE FOR GFR 0.77 MG/DL (0.70-1.30); GLOMERULAR FILTRATION RATE > 60.0 (>49); GLUCOSE, FASTING 114 MG/DL (70-100); LIPASE 83 U/L (73-393); MAGNESIUM LEVEL 1.8 MG/DL (1.8-2.4); PHOSPHORUS LEVEL 2.9 MG/DL (2.5-4.9); POTASSIUM SERUM 4.3 MEQ/L (3.5-5.1); SODIUM LEVEL 135 MEQ/L (136-145); TOTAL PROTEIN 6.2 GM/DL (6.4-8.2)
[2022-04-14] MEDS ORDERED: ISOVUE-370 76% 100ML VIAL As Ordered ONE (08:40)
[2022-04-14] MEDS ORDERED: BISACODYL 10 MG SUPP PR ONE ×3 (09:35→13:45)
[2022-04-14] MEDS ORDERED: MOM 30ML SUSPENSION UDC PO ONE (10:00)
[2022-04-14] MEDS ORDERED: LIDOCAINE 1% MDV 20ML VIAL As Ordered ONE (10:00)
[2022-04-14] MEDS: MIRALAX *UNIT DOSE* 17GM PACKET PO SCH (10:19)
[2022-04-14] MEDS: SENOKOT S TAB PO SCH ×2 (10:19→21:37)
[2022-04-14] MEDS: CitaloPRAM (CeleXA) 20 MG TAB PO SCH (10:20)
[2022-04-14] MEDS: ASPIRIN 81 MG CHEW TABLET PO SCH (10:20)
[2022-04-14] MEDS: FUROSEMIDE 40 MG TAB PO SCH ×2 (10:22→16:23)
[2022-04-14] MEDS: CLOPIDOGREL 75 MG TAB PO SCH (10:22)
[2022-04-14] MEDS: METOPROLOL SUCC (TopROL XL) 50MG **XL** TAB PO SCH (10:22)
[2022-04-14] MEDS: TAMSULOSIN 0.4 MG CAP PO SCH (10:23)
[2022-04-14] MEDS ORDERED: FUROSEMIDE 20MG/2ML VIAL (J1940) IV ONE (10:25)
[2022-04-14] MEDS ORDERED: MAG SULF 1GM/100ML (MAG RUN) 1 GM in IV 1 EA IV ONE (10:30)
[2022-04-14 12:14] LABS: VANCOMYCIN RANDOM 15.4 UG/ML
[2022-04-14] MEDS: LINEZOLID 600MG TABLET (ZYVOX) PO SCH ×2 (13:18→21:37)
[2022-04-14 14:49] VITALS: BP 118/96
[2022-04-14 19:51] VITALS: BP 132/54
[2022-04-14] MEDS: BISACODYL 10 MG SUPP PR SCH (21:00)
[2022-04-14] MEDS: ATORVASTATIN 20 MG TAB PO SCH (21:37)
[2022-04-15] MEDS: IPRATROPIUM 0.5MG/ALBUTEROL 2.5MG INH SOL UD 3ML (DUONEB) NEB SCH ×4 (02:00→20:21)
[2022-04-15] MEDS: carisoprodoL 350 MG TAB PO PRN ×2 (03:10→17:40)
[2022-04-15] MEDS: PERCOCET 5MG/325MG TAB PO PRN ×3 (03:11→21:44)
[2022-04-15 05:45] LABS: BASO % 0.2 % (0.0-1.0); EOS % 0.3 % (0.0-3.0); HEMATOCRIT 49.8 % (42.0-52.0); HEMOGLOBIN 15.2 g/dl (13.5-17.5); LYMPH # 0.6 10^3/uL (1.5-5.0); LYMPH % 4.7 % (24.0-44.0); MEAN CORPUSCULAR HEMOGLOBIN 29.3 pg (27.0-33.0); MEAN CORPUSCULAR HGB CONC 30.5 g/dl (32.0-36.5); MEAN CORPUSCULAR VOLUME 96.1 fl (80.0-96.0); MONO # 1.2 10^3/uL (0.0-0.8); MONO % 8.6 % (2.0-8.0); NEUTROPHILS # 11.5 10^3/uL (1.5-8.5); NEUTROPHILS % 85.6 % (36.0-66.0); PLATELET COUNT, AUTOMATED 277 10^3/uL (150-450); RED BLOOD COUNT 5.18 10^6/uL (4.30-6.10); WHITE BLOOD COUNT 13.4 10^3/uL (4.0-10.0)
[2022-04-15 05:46] VITALS: BP 122/63
[2022-04-15] MEDS: HEPARIN SOD (PORCINE) 5000UNITS/ML 1ML VIAL/SYRINGE SQ SCH ×3 (05:53→21:43)
[2022-04-15 06:07] LABS: ALBUMIN 2.8 GM/DL (3.2-5.2); ALT/SGPT 20 U/L (12-78); BLOOD UREA NITROGEN 12 MG/DL (7-18); CALCIUM LEVEL 8.9 MG/DL (8.8-10.2); CARBON DIOXIDE LEVEL 37 MEQ/L (21-32); CHLORIDE LEVEL 94 MEQ/L (98-107); CREATININE FOR GFR 0.75 MG/DL (0.70-1.30); GLOMERULAR FILTRATION RATE > 60.0 (>49); GLUCOSE, FASTING 98 MG/DL (70-100); POTASSIUM SERUM 4.2 MEQ/L (3.5-5.1); SODIUM LEVEL 135 MEQ/L (136-145); TOTAL PROTEIN 6.4 GM/DL (6.4-8.2)
[2022-04-15] MEDS: INSULIN LISPRO (NovoLOG) PER UNIT SC SCH ×4 (07:30→21:00)
[2022-04-15] MEDS: BISACODYL 10 MG SUPP PR SCH ×2 (09:00→21:00)
[2022-04-15] MEDS: TAMSULOSIN 0.4 MG CAP PO SCH (09:37)
[2022-04-15] MEDS: MIRALAX *UNIT DOSE* 17GM PACKET PO SCH (09:37)
[2022-04-15] MEDS: METOPROLOL SUCC (TopROL XL) 50MG **XL** TAB PO SCH (09:37)
[2022-04-15] MEDS: LINEZOLID 600MG TABLET (ZYVOX) PO SCH (09:37)
[2022-04-15] MEDS: ASPIRIN 81 MG CHEW TABLET PO SCH (09:37)
[2022-04-15] MEDS: CitaloPRAM (CeleXA) 20 MG TAB PO SCH (09:38)
[2022-04-15] MEDS: SENOKOT S TAB PO SCH ×2 (09:38→21:44)
[2022-04-15] MEDS: FUROSEMIDE 40 MG TAB PO SCH ×2 (09:38→17:39)
[2022-04-15] MEDS: CLOPIDOGREL 75 MG TAB PO SCH (09:42)
[2022-04-15 10:26] LABS: ABG BASE EXCESS 5.7 (-2.0-2.0); ABG HCO3 31.1 MEQ/L (22.0-26.0); ABG O2 SATURATION 92.4 % (95.0-99.0); ABG PARTIAL PRESSURE CO2 47.2 mmHg (35.0-45.0); ABG PARTIAL PRESSURE O2 61.7 mmHg (75.0-100.0); ABG STANDARD HCO3 29.4 MEQ/L (22.0-26.0); ABG TOTAL CO2 32.5 MEQ/L (23.0-31.0); ABG pH (ARTERIAL) 7.436 UNITS (7.350-7.450)
[2022-04-15] MEDS ORDERED: LIDOCAINE 1% MDV 20ML VIAL As Ordered ONE (10:58)
[2022-04-15] MEDS: MORPHINE 2 MG/ML 1ML VIAL IV PRN (11:43)
[2022-04-15] MEDS ORDERED: ISOVUE-370 76% 100ML VIAL As Ordered ONE (12:56)
[2022-04-15 13:10] VITALS: BP 122/59
[2022-04-15 14:00] VITALS: BP 123/58
[2022-04-15] MEDS: SODIUM CHLORIDE 0.9% INJ 10 ML SYR IV SCH (17:41)
[2022-04-15 21:03] VITALS: BP 139/68
[2022-04-15] MEDS: carisoprodoL 350 MG TAB PO SCH (21:43)
[2022-04-15] MEDS: ATORVASTATIN 20 MG TAB PO SCH (21:45)
[2022-04-16] MEDS: IPRATROPIUM 0.5MG/ALBUTEROL 2.5MG INH SOL UD 3ML (DUONEB) NEB SCH ×4 (02:50→20:00)
[2022-04-16] MEDS: PERCOCET 5MG/325MG TAB PO PRN ×4 (05:23→20:47)
[2022-04-16] MEDS: HEPARIN SOD (PORCINE) 5000UNITS/ML 1ML VIAL/SYRINGE SQ SCH ×3 (05:24→20:47)
[2022-04-16] MEDS: SODIUM CHLORIDE 0.9% INJ 10 ML SYR IV SCH ×2 (05:31→19:26)
[2022-04-16] MEDS: MORPHINE 2 MG/ML 1ML VIAL IV PRN (05:31)
[2022-04-16 05:42] VITALS: BP 136/67
[2022-04-16 06:39] LABS: BASO % 0.3 % (0.0-1.0); EOS # 0.1 10^3/uL (0.0-0.5); EOS % 0.5 % (0.0-3.0); HEMATOCRIT 48.1 % (42.0-52.0); HEMOGLOBIN 15.2 g/dl (13.5-17.5); LYMPH # 0.8 10^3/uL (1.5-5.0); LYMPH % 6.2 % (24.0-44.0); MEAN CORPUSCULAR HEMOGLOBIN 29.9 pg (27.0-33.0); MEAN CORPUSCULAR HGB CONC 31.6 g/dl (32.0-36.5); MEAN CORPUSCULAR VOLUME 94.7 fl (80.0-96.0); MONO # 1.2 10^3/uL (0.0-0.8); MONO % 8.9 % (2.0-8.0); NEUTROPHILS % 83.9 % (36.0-66.0); PLATELET COUNT, AUTOMATED 272 10^3/uL (150-450); RED BLOOD COUNT 5.08 10^6/uL (4.30-6.10); WHITE BLOOD COUNT 13.1 10^3/uL (4.0-10.0)
[2022-04-16 07:04] LABS: ALBUMIN 2.5 GM/DL (3.2-5.2); ALT/SGPT 20 U/L (12-78); BILIRUBIN,TOTAL 0.6 MG/DL (0.2-1.0); BLOOD UREA NITROGEN 13 MG/DL (7-18); CALCIUM LEVEL 8.8 MG/DL (8.8-10.2); CARBON DIOXIDE LEVEL 37 MEQ/L (21-32); CHLORIDE LEVEL 92 MEQ/L (98-107); CREATININE FOR GFR 0.66 MG/DL (0.70-1.30); GLOMERULAR FILTRATION RATE > 60.0 (>49); GLUCOSE, FASTING 108 MG/DL (70-100); SODIUM LEVEL 134 MEQ/L (136-145); TOTAL PROTEIN 7.2 GM/DL (6.4-8.2)
[2022-04-16] MEDS ORDERED: VANCOMYCIN HCL 1,000 MG, VIAL MATE ADAPTER 1 EACH in NS 250 ML IV ONE ×2 (08:15→10:00)
[2022-04-16 08:25] LABS: VANCOMYCIN RANDOM 1.5 UG/ML
[2022-04-16] MEDS: ASPIRIN 81 MG CHEW TABLET PO SCH (10:00)
[2022-04-16] MEDS: TAMSULOSIN 0.4 MG CAP PO SCH (10:00)
[2022-04-16] MEDS: carisoprodoL 350 MG TAB PO SCH ×2 (10:00→15:08)
[2022-04-16] MEDS: INSULIN LISPRO (NovoLOG) PER UNIT SC SCH ×4 (10:00→21:00)
[2022-04-16] MEDS: SENOKOT S TAB PO SCH ×2 (10:00→20:47)
[2022-04-16] MEDS: FUROSEMIDE 40 MG TAB PO SCH ×2 (10:01→17:19)
[2022-04-16] MEDS: CitaloPRAM (CeleXA) 20 MG TAB PO SCH (10:01)
[2022-04-16] MEDS: METOPROLOL SUCC (TopROL XL) 50MG **XL** TAB PO SCH (10:04)
[2022-04-16] MEDS: VANCOMYCIN HCL 1,000 MG, VIAL MATE ADAPTER 1 EACH in NS 250 ML IV SCH ×2 (10:05→17:19)
[2022-04-16] MEDS: BISACODYL 10 MG SUPP PR SCH ×2 (10:06→20:14)
[2022-04-16] MEDS: CLOPIDOGREL 75 MG TAB PO SCH (10:09)
[2022-04-16] MEDS: MIRALAX *UNIT DOSE* 17GM PACKET PO SCH (10:18)
[2022-04-16] MEDS: SODIUM CHLORIDE 0.9% INJ 10 ML SYR IV PRN (12:57)
[2022-04-16] MEDS: LIDOCAINE 5% (LIDODERM) PATCH TD SCH (13:18)
[2022-04-16 14:49] VITALS: BP 121/63
[2022-04-16 16:29] LABS: ABG BASE EXCESS 7.6 (-2.0-2.0); ABG O2 SATURATION 88.5 % (95.0-99.0); ABG PARTIAL PRESSURE CO2 60.1 mmHg (35.0-45.0); ABG PARTIAL PRESSURE O2 56.5 mmHg (75.0-100.0); ABG STANDARD HCO3 31.1 MEQ/L (22.0-26.0); ABG TOTAL CO2 36.8 MEQ/L (23.0-31.0); ABG pH (ARTERIAL) 7.383 UNITS (7.350-7.450)
[2022-04-16] MEDS: VANCOMYCIN HCL 500 MG in D5W MINI-BAG PLUS 100 ML IV SCH (18:20)
[2022-04-16] MEDS: **NOTE PATIENT COMMENT** MISC XX SCH (20:47)
[2022-04-16] MEDS: ATORVASTATIN 20 MG TAB PO SCH (20:47)
[2022-04-16] MEDS ORDERED: MORPHINE 4 MG/ML 1ML VIAL/SYRINGE IV ONE (21:00)
[2022-04-16 22:00] VITALS: BP 132/62
[2022-04-17] MEDS: VANCOMYCIN HCL 1,000 MG, VIAL MATE ADAPTER 1 EACH in NS 250 ML IV SCH ×3 (01:06→16:49)
[2022-04-17] MEDS: PERCOCET 5MG/325MG TAB PO PRN ×2 (01:14→23:48)
[2022-04-17] MEDS: IPRATROPIUM 0.5MG/ALBUTEROL 2.5MG INH SOL UD 3ML (DUONEB) NEB SCH ×4 (02:00→20:03)
[2022-04-17] MEDS: VANCOMYCIN HCL 500 MG in D5W MINI-BAG PLUS 100 ML IV SCH ×3 (02:22→18:06)
[2022-04-17] MEDS ORDERED: MORPHINE 4 MG/ML 1ML VIAL/SYRINGE IV PRN (02:40)
[2022-04-17] MEDS ORDERED: carisoprodoL 350 MG TAB PO ONE (03:00)
[2022-04-17 06:00] VITALS: BP 144/63
[2022-04-17] MEDS: SODIUM CHLORIDE 0.9% INJ 10 ML SYR IV SCH ×2 (06:07→19:13)
[2022-04-17] MEDS: HEPARIN SOD (PORCINE) 5000UNITS/ML 1ML VIAL/SYRINGE SQ SCH ×3 (06:07→21:23)
[2022-04-17] MEDS: INSULIN LISPRO (NovoLOG) PER UNIT SC SCH ×4 (07:30→21:00)
[2022-04-17] MEDS: KETOROLAC 30 MG/ML 1ML VIAL IV PRN ×3 (07:52→23:36)
[2022-04-17] MEDS: SODIUM CHLORIDE 0.9% INJ 10 ML SYR IV PRN ×2 (07:53→13:21)
[2022-04-17 08:08] LABS: BASO % 0.3 % (0.0-1.0); EOS # 0.1 10^3/uL (0.0-0.5); EOS % 0.5 % (0.0-3.0); HEMATOCRIT 50.3 % (42.0-52.0); HEMOGLOBIN 15.7 g/dl (13.5-17.5); LYMPH # 0.9 10^3/uL (1.5-5.0); MEAN CORPUSCULAR HEMOGLOBIN 29.9 pg (27.0-33.0); MEAN CORPUSCULAR HGB CONC 31.2 g/dl (32.0-36.5); MEAN CORPUSCULAR VOLUME 95.8 fl (80.0-96.0); MONO % 11.1 % (2.0-8.0); NEUTROPHILS # 12.2 10^3/uL (1.5-8.5); NEUTROPHILS % 81.7 % (36.0-66.0); PLATELET COUNT, AUTOMATED 296 10^3/uL (150-450); RED BLOOD COUNT 5.25 10^6/uL (4.30-6.10); WHITE BLOOD COUNT 14.9 10^3/uL (4.0-10.0)
[2022-04-17 08:33] LABS: ALBUMIN 2.7 GM/DL (3.2-5.2); ALT/SGPT 28 U/L (12-78); BILIRUBIN,TOTAL 0.8 MG/DL (0.2-1.0); BLOOD UREA NITROGEN 12 MG/DL (7-18); CALCIUM LEVEL 9.7 MG/DL (8.8-10.2); CARBON DIOXIDE LEVEL 35 MEQ/L (21-32); CHLORIDE LEVEL 92 MEQ/L (98-107); CREATININE FOR GFR 0.69 MG/DL (0.70-1.30); GLOMERULAR FILTRATION RATE > 60.0 (>49); GLUCOSE, FASTING 110 MG/DL (70-100); SODIUM LEVEL 135 MEQ/L (136-145); TOTAL PROTEIN 7.5 GM/DL (6.4-8.2)
[2022-04-17] MEDS: BISACODYL 10 MG SUPP PR SCH ×2 (08:37→21:23)
[2022-04-17] MEDS: MIRALAX *UNIT DOSE* 17GM PACKET PO SCH (08:37)
[2022-04-17] MEDS: LIDOCAINE 5% (LIDODERM) PATCH TD SCH (08:38)
[2022-04-17] MEDS: TAMSULOSIN 0.4 MG CAP PO SCH (08:40)
[2022-04-17] MEDS: SENOKOT S TAB PO SCH ×2 (08:40→21:22)
[2022-04-17] MEDS: CitaloPRAM (CeleXA) 20 MG TAB PO SCH (08:40)
[2022-04-17] MEDS: ASPIRIN 81 MG CHEW TABLET PO SCH (08:40)
[2022-04-17] MEDS: FUROSEMIDE 40 MG TAB PO SCH ×2 (08:41→16:51)
[2022-04-17] MEDS: CLOPIDOGREL 75 MG TAB PO SCH (08:41)
[2022-04-17] MEDS: METOPROLOL SUCC (TopROL XL) 50MG **XL** TAB PO SCH (08:42)
[2022-04-17 08:43] LABS: MONO # 1.7 10^3/uL (0.0-0.8)
[2022-04-17] MEDS ORDERED: PILL CUTTER 1 EACH XX PRN (09:05)
[2022-04-17 09:23] LABS: ABG BASE EXCESS 6.9 (-2.0-2.0); ABG HCO3 33.8 MEQ/L (22.0-26.0); ABG O2 SATURATION 88.6 % (95.0-99.0); ABG PARTIAL PRESSURE CO2 56.6 mmHg (35.0-45.0); ABG PARTIAL PRESSURE O2 55.8 mmHg (75.0-100.0); ABG STANDARD HCO3 30.5 MEQ/L (22.0-26.0); ABG TOTAL CO2 35.5 MEQ/L (23.0-31.0); ABG pH (ARTERIAL) 7.394 UNITS (7.350-7.450)
[2022-04-17 09:43] LABS: ERYTHROCYTE SEDIMENTATION RATE 8 mm/hr (0-20)
[2022-04-17] MEDS: carisoprodoL 350 MG TAB PO SCH ×3 (10:20→21:22)
[2022-04-17 11:20] LABS: HEMATOCRIT 49.9 % (42.0-52.0); HEMOGLOBIN 15.4 g/dl (13.5-17.5)
[2022-04-17] MEDS: NICOTINE 14 MG/24 HR TRANSDERMAL TD SCH (13:51)
[2022-04-17 14:40] VITALS: BP 154/72
[2022-04-17 18:51] VITALS: BP 145/55
[2022-04-17] MEDS: ATORVASTATIN 20 MG TAB PO SCH (21:22)
[2022-04-17] MEDS: **NOTE PATIENT COMMENT** MISC XX SCH (21:23)
[2022-04-17] MEDS: CAPSAICIN 0.025% CR 60 GM TOP PRN (21:26)
[2022-04-17 21:51] LABS: CK-MB VALUE MASS 3.8 NG/ML (<3.6); MB/CK RELATIVE INDEX 2.5 (< OR =4)
[2022-04-17 22:00] VITALS: BP 134/72
[2022-04-17 22:10] VITALS: BP 152/79
[2022-04-18] MEDS: VANCOMYCIN HCL 1,000 MG, VIAL MATE ADAPTER 1 EACH in NS 250 ML IV SCH ×5 (01:04→23:21)
[2022-04-18 02:22] VITALS: O2SAT 92
[2022-04-18] MEDS: IPRATROPIUM 0.5MG/ALBUTEROL 2.5MG INH SOL UD 3ML (DUONEB) NEB SCH ×4 (02:22→20:44)
[2022-04-18] MEDS: VANCOMYCIN HCL 500 MG in D5W MINI-BAG PLUS 100 ML IV SCH (02:37)
[2022-04-18] MEDS: PERCOCET 5MG/325MG TAB PO PRN ×4 (05:06→22:08)
[2022-04-18] MEDS: SODIUM CHLORIDE 0.9% INJ 10 ML SYR IV SCH ×2 (05:25→17:24)
[2022-04-18] MEDS: HEPARIN SOD (PORCINE) 5000UNITS/ML 1ML VIAL/SYRINGE SQ SCH ×3 (05:42→22:00)
[2022-04-18 06:00] VITALS: BP 161/81
[2022-04-18] MEDS: INSULIN LISPRO (NovoLOG) PER UNIT SC SCH ×4 (07:30→21:00)
[2022-04-18] MEDS: carisoprodoL 350 MG TAB PO SCH ×2 (08:14→22:06)
[2022-04-18] MEDS: TAMSULOSIN 0.4 MG CAP PO SCH (08:15)
[2022-04-18] MEDS: METOPROLOL SUCC (TopROL XL) 50MG **XL** TAB PO SCH (08:16)
[2022-04-18] MEDS: NICOTINE 14 MG/24 HR TRANSDERMAL TD SCH (08:16)
[2022-04-18] MEDS: SENOKOT S TAB PO SCH ×3 (08:16→21:00)
[2022-04-18] MEDS: CitaloPRAM (CeleXA) 20 MG TAB PO SCH (08:16)
[2022-04-18] MEDS: LIDOCAINE 5% (LIDODERM) PATCH TD SCH (08:17)
[2022-04-18] MEDS: FUROSEMIDE 40 MG TAB PO SCH ×2 (08:18→17:45)
[2022-04-18 08:40] LABS: BASO % 0.3 % (0.0-1.0); EOS # 0.1 10^3/uL (0.0-0.5); EOS % 0.6 % (0.0-3.0); HEMATOCRIT 48.2 % (42.0-52.0); LYMPH # 0.8 10^3/uL (1.5-5.0); LYMPH % 6.4 % (24.0-44.0); MEAN CORPUSCULAR HGB CONC 31.1 g/dl (32.0-36.5); MEAN CORPUSCULAR VOLUME 96.4 fl (80.0-96.0); MONO % 12.1 % (2.0-8.0); NEUTROPHILS # 10.3 10^3/uL (1.5-8.5); NEUTROPHILS % 80.1 % (36.0-66.0); PLATELET COUNT, AUTOMATED 295 10^3/uL (150-450); WHITE BLOOD COUNT 12.9 10^3/uL (4.0-10.0)
[2022-04-18 09:00] LABS: ALBUMIN 2.6 GM/DL (3.2-5.2); ALT/SGPT 36 U/L (12-78); BLOOD UREA NITROGEN 15 MG/DL (7-18); CALCIUM LEVEL 9.5 MG/DL (8.8-10.2); CARBON DIOXIDE LEVEL 36 MEQ/L (21-32); CHLORIDE LEVEL 94 MEQ/L (98-107); CREATININE FOR GFR 0.66 MG/DL (0.70-1.30); GLOMERULAR FILTRATION RATE > 60.0 (>49); GLUCOSE, FASTING 107 MG/DL (70-100); POTASSIUM SERUM 3.4 MEQ/L (3.5-5.1); SODIUM LEVEL 134 MEQ/L (136-145); TOTAL PROTEIN 7.2 GM/DL (6.4-8.2); VANCOMYCIN LEVEL TROUGH 21.1 UG/ML (10.0-20.0)
[2022-04-18] MEDS: MIRALAX *UNIT DOSE* 17GM PACKET PO SCH (09:00)
[2022-04-18] MEDS: BISACODYL 10 MG SUPP PR SCH ×2 (09:00→21:00)
[2022-04-18 09:15] LABS: MONO # 1.6 10^3/uL (0.0-0.8)
[2022-04-18] MEDS ORDERED: POTASSIUM CHLORIDE 10% LIQ 20 MEQ/15 ML UDC PO ONE (10:50)
[2022-04-18] MEDS: CLOPIDOGREL 75 MG TAB PO SCH (11:26)
[2022-04-18] MEDS: ASPIRIN 81 MG CHEW TABLET PO SCH (11:26)
[2022-04-18] MEDS ORDERED: MORPHINE 2 MG/ML 1ML VIAL IV ONE (12:00)
[2022-04-18 14:15] VITALS: BP 155/72
[2022-04-18] MEDS: KETOROLAC 30 MG/ML 1ML VIAL IV PRN ×2 (14:49→22:08)
[2022-04-18] MEDS: SODIUM CHLORIDE 0.9% INJ 10 ML SYR IV PRN ×2 (14:55→15:55)
[2022-04-18] MEDS: MORPHINE 2 MG/ML 1ML VIAL IV PRN (18:39)
[2022-04-18 19:46] VITALS: BP 146/66
[2022-04-18] MEDS: **NOTE PATIENT COMMENT** MISC XX SCH (21:00)
[2022-04-18] MEDS: ATORVASTATIN 20 MG TAB PO SCH (22:07)
[2022-04-19] MEDS: IPRATROPIUM 0.5MG/ALBUTEROL 2.5MG INH SOL UD 3ML (DUONEB) NEB SCH ×4 (01:00→20:38)
[2022-04-19] MEDS: SODIUM CHLORIDE 0.9% INJ 10 ML SYR IV PRN ×2 (01:21→03:21)
[2022-04-19] MEDS: PERCOCET 5MG/325MG TAB PO PRN ×4 (02:41→22:56)
[2022-04-19] MEDS: MORPHINE 2 MG/ML 1ML VIAL IV PRN ×2 (03:21→20:59)
[2022-04-19] MEDS: HEPARIN SOD (PORCINE) 5000UNITS/ML 1ML VIAL/SYRINGE SQ SCH ×3 (05:15→21:04)
[2022-04-19] MEDS: SODIUM CHLORIDE 0.9% INJ 10 ML SYR IV SCH ×2 (05:17→14:28)
[2022-04-19 05:55] VITALS: BP 121/64
[2022-04-19 07:28] LABS: BASO # 0.1 10^3/uL (0.0-0.2); BASO % 0.4 % (0.0-1.0); EOS # 0.1 10^3/uL (0.0-0.5); HEMATOCRIT 47.3 % (42.0-52.0); HEMOGLOBIN 14.6 g/dl (13.5-17.5); LYMPH # 1.1 10^3/uL (1.5-5.0); LYMPH % 7.4 % (24.0-44.0); MEAN CORPUSCULAR HEMOGLOBIN 29.2 pg (27.0-33.0); MEAN CORPUSCULAR HGB CONC 30.9 g/dl (32.0-36.5); MEAN CORPUSCULAR VOLUME 94.6 fl (80.0-96.0); MONO # 1.5 10^3/uL (0.0-0.8); MONO % 10.3 % (2.0-8.0); NEUTROPHILS # 11.4 10^3/uL (1.5-8.5); NEUTROPHILS % 80.4 % (36.0-66.0); PLATELET COUNT, AUTOMATED 300 10^3/uL (150-450); WHITE BLOOD COUNT 14.1 10^3/uL (4.0-10.0)
[2022-04-19] MEDS: INSULIN LISPRO (NovoLOG) PER UNIT SC SCH ×4 (07:30→20:32)
[2022-04-19 08:01] LABS: ALBUMIN 2.7 GM/DL (3.2-5.2); ALT/SGPT 46 U/L (12-78); BLOOD UREA NITROGEN 9 MG/DL (7-18); CALCIUM LEVEL 8.9 MG/DL (8.8-10.2); CARBON DIOXIDE LEVEL 34 MEQ/L (21-32); CHLORIDE LEVEL 95 MEQ/L (98-107); CREATININE FOR GFR 0.51 MG/DL (0.70-1.30); GLOMERULAR FILTRATION RATE > 60.0 (>49); GLUCOSE, FASTING 104 MG/DL (70-100); POTASSIUM SERUM 3.7 MEQ/L (3.5-5.1); SODIUM LEVEL 137 MEQ/L (136-145); TOTAL PROTEIN 6.3 GM/DL (6.4-8.2)
[2022-04-19] MEDS: LIDOCAINE 5% (LIDODERM) PATCH TD SCH (09:00)
[2022-04-19] MEDS: carisoprodoL 350 MG TAB PO SCH ×2 (09:12→20:59)
[2022-04-19] MEDS: SENOKOT S TAB PO SCH ×2 (09:20→20:59)
[2022-04-19] MEDS: CLOPIDOGREL 75 MG TAB PO SCH (09:21)
[2022-04-19] MEDS: ASPIRIN 81 MG CHEW TABLET PO SCH (09:21)
[2022-04-19] MEDS: FUROSEMIDE 40 MG TAB PO SCH ×2 (09:21→17:53)
[2022-04-19] MEDS: CitaloPRAM (CeleXA) 20 MG TAB PO SCH (09:22)
[2022-04-19] MEDS: TAMSULOSIN 0.4 MG CAP PO SCH (09:22)
[2022-04-19] MEDS: NICOTINE 14 MG/24 HR TRANSDERMAL TD SCH (09:22)
[2022-04-19] MEDS: METOPROLOL SUCC (TopROL XL) 50MG **XL** TAB PO SCH (09:22)
[2022-04-19] MEDS: MIRALAX *UNIT DOSE* 17GM PACKET PO SCH (09:23)
[2022-04-19] MEDS: BISACODYL 10 MG SUPP PR SCH ×2 (09:23→21:00)
[2022-04-19] MEDS: VANCOMYCIN HCL 1,000 MG, VIAL MATE ADAPTER 1 EACH in NS 250 ML IV SCH ×4 (10:42→23:00)
[2022-04-19] MEDS ORDERED: ISOVUE-370 76% 100ML VIAL As Ordered ONE (13:13)
[2022-04-19] MEDS: oxyCODONE 10 MG CR TAB PO SCH (13:53)
[2022-04-19] MEDS ORDERED: PERCOCET 5MG/325MG TAB PO SCH (14:00)
[2022-04-19 14:15] VITALS: BP 143/80
[2022-04-19] MEDS: CAPSAICIN 0.025% CR 60 GM TOP PRN (15:52)
[2022-04-19 20:39] VITALS: O2SAT 93
[2022-04-19] MEDS: ATORVASTATIN 20 MG TAB PO SCH (20:59)
[2022-04-19] MEDS: **NOTE PATIENT COMMENT** MISC XX SCH (21:00)
[2022-04-19 22:00] VITALS: BP 134/78
[2022-04-20] MEDS: IPRATROPIUM 0.5MG/ALBUTEROL 2.5MG INH SOL UD 3ML (DUONEB) NEB SCH ×4 (01:32→19:10)
[2022-04-20] MEDS: PERCOCET 5MG/325MG TAB PO PRN ×2 (03:23→20:39)
[2022-04-20 06:00] VITALS: BP 142/60
[2022-04-20] MEDS: HEPARIN SOD (PORCINE) 5000UNITS/ML 1ML VIAL/SYRINGE SQ SCH ×2 (06:34→14:41)
[2022-04-20] MEDS: SODIUM CHLORIDE 0.9% INJ 10 ML SYR IV SCH ×2 (06:35→17:18)
[2022-04-20 07:25] LABS: BASO # 0.1 10^3/uL (0.0-0.2); BASO % 0.3 % (0.0-1.0); EOS # 0.1 10^3/uL (0.0-0.5); EOS % 0.4 % (0.0-3.0); HEMOGLOBIN 14.1 g/dl (13.5-17.5); LYMPH # 1.1 10^3/uL (1.5-5.0); LYMPH % 6.6 % (24.0-44.0); MEAN CORPUSCULAR HEMOGLOBIN 29.7 pg (27.0-33.0); MEAN CORPUSCULAR HGB CONC 31.3 g/dl (32.0-36.5); MEAN CORPUSCULAR VOLUME 94.9 fl (80.0-96.0); MONO # 1.5 10^3/uL (0.0-0.8); MONO % 8.7 % (2.0-8.0); NEUTROPHILS # 14.1 10^3/uL (1.5-8.5); NEUTROPHILS % 83.2 % (36.0-66.0); PLATELET COUNT, AUTOMATED 317 10^3/uL (150-450); RED BLOOD COUNT 4.74 10^6/uL (4.30-6.10); WHITE BLOOD COUNT 16.9 10^3/uL (4.0-10.0)
[2022-04-20] MEDS: INSULIN LISPRO (NovoLOG) PER UNIT SC SCH ×5 (07:30→20:40)
[2022-04-20 07:51] LABS: BLOOD UREA NITROGEN 8 MG/DL (7-18); CALCIUM LEVEL 8.4 MG/DL (8.8-10.2); CARBON DIOXIDE LEVEL 38 MEQ/L (21-32); CHLORIDE LEVEL 89 MEQ/L (98-107); CREATININE FOR GFR 0.44 MG/DL (0.70-1.30); GLOMERULAR FILTRATION RATE > 60.0 (>49); GLUCOSE, FASTING 90 MG/DL (70-100); MAGNESIUM LEVEL 1.9 MG/DL (1.8-2.4); PHOSPHORUS LEVEL 3.2 MG/DL (2.5-4.9); POTASSIUM SERUM 3.4 MEQ/L (3.5-5.1); SODIUM LEVEL 132 MEQ/L (136-145)
[2022-04-20] MEDS: LIDOCAINE 5% (LIDODERM) PATCH TD SCH (09:00)
[2022-04-20] MEDS: BISACODYL 10 MG SUPP PR SCH ×3 (09:00→20:39)
[2022-04-20] MEDS: MIRALAX *UNIT DOSE* 17GM PACKET PO SCH (09:24)
[2022-04-20] MEDS: NICOTINE 14 MG/24 HR TRANSDERMAL TD SCH (09:25)
[2022-04-20] MEDS: FUROSEMIDE 40 MG TAB PO SCH (09:25)
[2022-04-20] MEDS: oxyCODONE 10 MG CR TAB PO SCH (09:26)
[2022-04-20] MEDS: TAMSULOSIN 0.4 MG CAP PO SCH (09:26)
[2022-04-20] MEDS: SENOKOT S TAB PO SCH ×2 (09:27→20:40)
[2022-04-20] MEDS: CLOPIDOGREL 75 MG TAB PO SCH (09:27)
[2022-04-20] MEDS: METOPROLOL SUCC (TopROL XL) 50MG **XL** TAB PO SCH (09:27)
[2022-04-20] MEDS: ASPIRIN 81 MG CHEW TABLET PO SCH (09:28)
[2022-04-20] MEDS: carisoprodoL 350 MG TAB PO SCH (09:28)
[2022-04-20] MEDS: CitaloPRAM (CeleXA) 20 MG TAB PO SCH (09:28)
[2022-04-20] MEDS ORDERED: KETOROLAC 30 MG/ML 1ML VIAL IV PRN (10:00)
[2022-04-20] MEDS: VANCOMYCIN HCL 1,000 MG, VIAL MATE ADAPTER 1 EACH in NS 250 ML IV SCH ×4 (10:21→23:10)
[2022-04-20] MEDS ORDERED: POTASSIUM CHLORIDE 10MEQ SR TABLET PO ONE (11:00)
[2022-04-20 13:42] LABS: ABG BASE EXCESS 10.4 (-2.0-2.0); ABG HCO3 37.5 MEQ/L (22.0-26.0); ABG O2 SATURATION 97.7 % (95.0-99.0); ABG PARTIAL PRESSURE CO2 59.9 mmHg (35.0-45.0); ABG PARTIAL PRESSURE O2 97.1 mmHg (75.0-100.0); ABG STANDARD HCO3 34.2 MEQ/L (22.0-26.0); ABG TOTAL CO2 39.4 MEQ/L (23.0-31.0); ABG pH (ARTERIAL) 7.415 UNITS (7.350-7.450)
[2022-04-20 14:00] VITALS: BP 144/78
[2022-04-20] MEDS: SODIUM CHLORIDE 0.9% INJ 10 ML SYR IV PRN (14:54)
[2022-04-20] MEDS ORDERED: METOPROLOL TART 25 MG TABLET PO SCH (17:40)
[2022-04-20 18:15] VITALS: BP 143/74
[2022-04-20 20:00] VITALS: BP 164/97
[2022-04-20] MEDS: MORPHINE 2 MG/ML 1ML VIAL IV PRN (20:38)
[2022-04-20] MEDS: ATORVASTATIN 20 MG TAB PO SCH (20:38)
[2022-04-20] MEDS: APIXABAN 5 MG TAB (ELIQUIS) PO SCH (20:39)
[2022-04-20] MEDS: **NOTE PATIENT COMMENT** MISC XX SCH (20:41)
[2022-04-20] MEDS ORDERED: RAMELTEON 8 MG TAB (ROZEREM) PO PRN (21:50)
[2022-04-21] VITALS (8 sets, daily range): BP systolic 159–185; BP diastolic 72–110
[2022-04-21] MEDS: PERCOCET 5MG/325MG TAB PO PRN (00:24)
[2022-04-21] MEDS: IPRATROPIUM 0.5MG/ALBUTEROL 2.5MG INH SOL UD 3ML (DUONEB) NEB SCH ×4 (01:12→20:00)
[2022-04-21] MEDS: SODIUM CHLORIDE 0.9% INJ 10 ML SYR IV SCH ×2 (05:04→17:08)
[2022-04-21 05:51] LABS: BASO # 0.1 10^3/uL (0.0-0.2); BASO % 0.4 % (0.0-1.0); EOS # 0.1 10^3/uL (0.0-0.5); EOS % 0.3 % (0.0-3.0); HEMATOCRIT 46.3 % (42.0-52.0); HEMOGLOBIN 14.8 g/dl (13.5-17.5); LYMPH # 0.9 10^3/uL (1.5-5.0); LYMPH % 5.1 % (24.0-44.0); MEAN CORPUSCULAR HEMOGLOBIN 30.4 pg (27.0-33.0); MEAN CORPUSCULAR VOLUME 95.1 fl (80.0-96.0); MONO % 8.5 % (2.0-8.0); NEUTROPHILS % 84.6 % (36.0-66.0); PLATELET COUNT, AUTOMATED 363 10^3/uL (150-450); RED BLOOD COUNT 4.87 10^6/uL (4.30-6.10); WHITE BLOOD COUNT 17.8 10^3/uL (4.0-10.0)
[2022-04-21 06:17] LABS: ALBUMIN 2.6 GM/DL (3.2-5.2); ALT/SGPT 42 U/L (12-78); BLOOD UREA NITROGEN 13 MG/DL (7-18); CALCIUM LEVEL 9.7 MG/DL (8.8-10.2); CARBON DIOXIDE LEVEL 33 MEQ/L (21-32); CHLORIDE LEVEL 94 MEQ/L (98-107); CREATININE FOR GFR 0.57 MG/DL (0.70-1.30); GLOMERULAR FILTRATION RATE > 60.0 (>49); GLUCOSE, FASTING 114 MG/DL (70-100); MAGNESIUM LEVEL 2.1 MG/DL (1.8-2.4); PHOSPHORUS LEVEL 3.5 MG/DL (2.5-4.9); POTASSIUM SERUM 3.5 MEQ/L (3.5-5.1); SODIUM LEVEL 135 MEQ/L (136-145); TOTAL PROTEIN 7.3 GM/DL (6.4-8.2)
[2022-04-21 06:49] LABS: MONO # 1.5 10^3/uL (0.0-0.8)
[2022-04-21] MEDS: TAMSULOSIN 0.4 MG CAP PO SCH (08:51)
[2022-04-21] MEDS: SENOKOT S TAB PO SCH ×3 (08:51→21:00)
[2022-04-21] MEDS: ASPIRIN 81 MG CHEW TABLET PO SCH (08:51)
[2022-04-21] MEDS: CLOPIDOGREL 75 MG TAB PO SCH (08:52)
[2022-04-21] MEDS: CitaloPRAM (CeleXA) 20 MG TAB PO SCH (08:52)
[2022-04-21] MEDS: METOPROLOL SUCC (TopROL XL) 50MG **XL** TAB PO SCH (08:52)
[2022-04-21] MEDS: APIXABAN 5 MG TAB (ELIQUIS) PO SCH ×2 (08:52→21:00)
[2022-04-21] MEDS: INSULIN LISPRO (NovoLOG) PER UNIT SC SCH ×4 (08:53→21:00)
[2022-04-21] MEDS: NICOTINE 14 MG/24 HR TRANSDERMAL TD SCH (08:54)
[2022-04-21] MEDS: BISACODYL 10 MG SUPP PR SCH ×2 (08:55→21:00)
[2022-04-21] MEDS: LIDOCAINE 5% (LIDODERM) PATCH TD SCH (08:55)
[2022-04-21] MEDS: MIRALAX *UNIT DOSE* 17GM PACKET PO SCH (08:56)
[2022-04-21] MEDS ORDERED: carisoprodoL 350 MG TAB PO SCH (09:00)
[2022-04-21] MEDS: VANCOMYCIN HCL 1,000 MG, VIAL MATE ADAPTER 1 EACH in NS 250 ML IV SCH ×2 (09:38→11:38)
[2022-04-21 10:11] LABS: ABG BASE EXCESS 9.2 (-2.0-2.0); ABG HCO3 35.7 MEQ/L (22.0-26.0); ABG O2 SATURATION 94.7 % (95.0-99.0); ABG PARTIAL PRESSURE CO2 54.9 mmHg (35.0-45.0); ABG PARTIAL PRESSURE O2 70.6 mmHg (75.0-100.0); ABG STANDARD HCO3 32.9 MEQ/L (22.0-26.0); ABG TOTAL CO2 37.4 MEQ/L (23.0-31.0); ABG pH (ARTERIAL) 7.431 UNITS (7.350-7.450)
[2022-04-21] MEDS: MORPHINE 2 MG/ML 1ML VIAL IV PRN ×2 (15:10→22:11)
[2022-04-21] MEDS ORDERED: OLANZapine INTRAMUSCULAR 10MG VIAL IM ONE (15:30)
[2022-04-21] MEDS: LACTULOSE 20 GM/30 ML SYRUP UD PO SCH ×2 (17:48→23:46)
[2022-04-21] MEDS: CEFTAROLINE FOSAMIL 600 MG in D5W MINI-BAG PLUS 50 ML IV SCH (17:48)
[2022-04-21] MEDS ORDERED: ADENOSINE 6MG/2ML INJECTION (J0153) IV STA (19:12)
[2022-04-21] MEDS ORDERED: ADENOSINE 6MG/2ML INJECTION (J0153) As Ordered ONE (19:16)
[2022-04-21] MEDS: METOPROLOL 5 MG/5 ML VIAL IV SCH ×3 (19:30→19:50)
[2022-04-21 20:13] LABS: BASO # 0.1 10^3/uL (0.0-0.2); BASO % 0.5 % (0.0-1.0); EOS # 0.1 10^3/uL (0.0-0.5); EOS % 0.3 % (0.0-3.0); HEMATOCRIT 46.9 % (42.0-52.0); HEMOGLOBIN 14.8 g/dl (13.5-17.5); LYMPH % 5.6 % (24.0-44.0); MEAN CORPUSCULAR HEMOGLOBIN 30.2 pg (27.0-33.0); MEAN CORPUSCULAR HGB CONC 31.6 g/dl (32.0-36.5); MEAN CORPUSCULAR VOLUME 95.7 fl (80.0-96.0); MONO % 9.2 % (2.0-8.0); NEUTROPHILS # 14.8 10^3/uL (1.5-8.5); NEUTROPHILS % 82.8 % (36.0-66.0); PLATELET COUNT, AUTOMATED 424 10^3/uL (150-450); WHITE BLOOD COUNT 17.9 10^3/uL (4.0-10.0)
[2022-04-21 20:23] LABS: MONO # 1.6 10^3/uL (0.0-0.8)
[2022-04-21] MEDS ORDERED: HALOPERIDOL 5MG/ML VIAL (J1630 PER 1) IM STA ×2 (20:32→22:05)
[2022-04-21 20:40] LABS: CK-MB VALUE MASS 3.5 NG/ML (<3.6); MB/CK RELATIVE INDEX 1.16 (< OR =4)
[2022-04-21 20:42] LABS: ALBUMIN 2.6 GM/DL (3.2-5.2); ALT/SGPT 49 U/L (12-78); BILIRUBIN,TOTAL 0.9 MG/DL (0.2-1.0); BLOOD UREA NITROGEN 16 MG/DL (7-18); CARBON DIOXIDE LEVEL 36 MEQ/L (21-32); CHLORIDE LEVEL 94 MEQ/L (98-107); CREATININE FOR GFR 0.57 MG/DL (0.70-1.30); GLOMERULAR FILTRATION RATE > 60.0 (>49); GLUCOSE, FASTING 112 MG/DL (70-100); MAGNESIUM LEVEL 2.1 MG/DL (1.8-2.4); NT-PRO BNP 1331 PG/ML (<125); POTASSIUM SERUM 3.9 MEQ/L (3.5-5.1); SODIUM LEVEL 136 MEQ/L (136-145); TOTAL PROTEIN 6.7 GM/DL (6.4-8.2)
[2022-04-21] MEDS: **NOTE PATIENT COMMENT** MISC XX SCH (21:00)
[2022-04-21] MEDS: ATORVASTATIN 20 MG TAB PO SCH (21:00)
[2022-04-21 22:06] LABS: CK-MB VALUE MASS 3.7 NG/ML (<3.6); MB/CK RELATIVE INDEX 1.25 (< OR =4)
[2022-04-21] MEDS: CLOTRIMAZOLE 1% TOPICAL CREAM 30GM TOP SCH (22:09)
[2022-04-21] MEDS: DAPTOmycin 1,000 MG in NS 50 ML IV SCH (22:09)
[2022-04-21] MEDS: diltiaZEM 125 MG in NS 100 ML IV SCH (23:02)
[2022-04-22] VITALS (8 sets, daily range): BP systolic 99–152; BP diastolic 57–100
[2022-04-22] MEDS: IPRATROPIUM 0.5MG/ALBUTEROL 2.5MG INH SOL UD 3ML (DUONEB) NEB SCH ×4 (02:00→20:00)
[2022-04-22] MEDS ORDERED: diphenhydrAMINE 50MG/ML VIAL (J1200) IM ONE (03:00)
[2022-04-22] MEDS: CEFTAROLINE FOSAMIL 600 MG in D5W MINI-BAG PLUS 50 ML IV SCH ×3 (05:05→18:32)
[2022-04-22 05:08] LABS: BASO # 0.1 10^3/uL (0.0-0.2); BASO % 0.4 % (0.0-1.0); HEMATOCRIT 49.3 % (42.0-52.0); LYMPH # 0.9 10^3/uL (1.5-5.0); LYMPH % 4.6 % (24.0-44.0); MEAN CORPUSCULAR HEMOGLOBIN 28.7 pg (27.0-33.0); MEAN CORPUSCULAR HGB CONC 30.4 g/dl (32.0-36.5); MEAN CORPUSCULAR VOLUME 94.4 fl (80.0-96.0); MONO % 9.3 % (2.0-8.0); NEUTROPHILS # 16.9 10^3/uL (1.5-8.5); NEUTROPHILS % 83.7 % (36.0-66.0); PLATELET COUNT, AUTOMATED 483 10^3/uL (150-450); RED BLOOD COUNT 5.22 10^6/uL (4.30-6.10); WHITE BLOOD COUNT 20.2 10^3/uL (4.0-10.0)
[2022-04-22 05:42] LABS: ALBUMIN 2.9 GM/DL (3.2-5.2); ALT/SGPT 55 U/L (12-78); BLOOD UREA NITROGEN 29 MG/DL (7-18); CALCIUM LEVEL 9.4 MG/DL (8.8-10.2); CARBON DIOXIDE LEVEL 33 MEQ/L (21-32); CHLORIDE LEVEL 96 MEQ/L (98-107); CREATININE FOR GFR 1.06 MG/DL (0.70-1.30); GLOMERULAR FILTRATION RATE > 60.0 (>49); GLUCOSE, FASTING 123 MG/DL (70-100); MAGNESIUM LEVEL 2.2 MG/DL (1.8-2.4); PHOSPHORUS LEVEL 5.5 MG/DL (2.5-4.9); POTASSIUM SERUM 4.1 MEQ/L (3.5-5.1); SODIUM LEVEL 139 MEQ/L (136-145); TOTAL PROTEIN 7.1 GM/DL (6.4-8.2)
[2022-04-22 05:45] LABS: MONO # 1.9 10^3/uL (0.0-0.8)
[2022-04-22] MEDS: LACTULOSE 20 GM/30 ML SYRUP UD PO SCH ×3 (06:00→18:31)
[2022-04-22] MEDS: SODIUM CHLORIDE 0.9% INJ 10 ML SYR IV SCH ×2 (06:00→18:00)
[2022-04-22] MEDS: MIRALAX *UNIT DOSE* 17GM PACKET PO SCH (09:00)
[2022-04-22] MEDS: INSULIN LISPRO (NovoLOG) PER UNIT SC SCH ×4 (09:12→21:00)
[2022-04-22] MEDS: METOPROLOL SUCC *XL* 25MG TAB (TopROL *XL*) PO SCH (09:44)
[2022-04-22] MEDS: APIXABAN 5 MG TAB (ELIQUIS) PO SCH ×2 (09:44→22:12)
[2022-04-22] MEDS: FUROSEMIDE 40 MG TAB PO SCH (09:46)
[2022-04-22] MEDS: TAMSULOSIN 0.4 MG CAP PO SCH (09:46)
[2022-04-22] MEDS: SENOKOT S TAB PO SCH ×2 (09:47→21:00)
[2022-04-22] MEDS: CitaloPRAM (CeleXA) 20 MG TAB PO SCH (09:47)
[2022-04-22] MEDS: CLOPIDOGREL 75 MG TAB PO SCH (09:47)
[2022-04-22] MEDS: ASPIRIN 81 MG CHEW TABLET PO SCH (09:47)
[2022-04-22] MEDS: BISACODYL 10 MG SUPP PR SCH ×2 (09:48→21:00)
[2022-04-22] MEDS: NICOTINE 14 MG/24 HR TRANSDERMAL TD SCH (09:48)
[2022-04-22] MEDS: CLOTRIMAZOLE 1% TOPICAL CREAM 30GM TOP SCH ×2 (09:48→22:04)
[2022-04-22] MEDS ORDERED: ISOVUE-370 76% 100ML VIAL As Ordered ONE (13:38)
[2022-04-22] MEDS: diltiaZEM 125 MG in NS 100 ML IV SCH (16:25)
[2022-04-22] MEDS: DRONABINOL 2.5MG CAP (MARINOL) PO SCH ×2 (18:31→22:12)
[2022-04-22] MEDS: **NOTE PATIENT COMMENT** MISC XX SCH (21:00)
[2022-04-22] MEDS: OLANZapine INTRAMUSCULAR 10MG VIAL IM PRN (22:11)
[2022-04-22] MEDS: ATORVASTATIN 20 MG TAB PO SCH (22:12)
[2022-04-22] MEDS: DAPTOmycin 1,000 MG in NS 50 ML IV SCH (22:12)
[2022-04-23 00:01] VITALS: BP 107/76
[2022-04-23] MEDS: LACTULOSE 20 GM/30 ML SYRUP UD PO SCH ×4 (00:47→18:19)
[2022-04-23] MEDS: IPRATROPIUM 0.5MG/ALBUTEROL 2.5MG INH SOL UD 3ML (DUONEB) NEB SCH ×4 (02:00→19:42)
[2022-04-23] MEDS: CEFTAROLINE FOSAMIL 600 MG in D5W MINI-BAG PLUS 50 ML IV SCH ×2 (02:17→10:23)
[2022-04-23] MEDS: OLANZapine INTRAMUSCULAR 10MG VIAL IM PRN ×2 (02:17→02:57)
[2022-04-23 03:50] VITALS: BP 125/87
[2022-04-23] MEDS: SODIUM CHLORIDE 0.9% INJ 10 ML SYR IV SCH ×2 (05:03→18:00)
[2022-04-23 05:40] LABS: HEMATOCRIT 42.9 % (42.0-52.0); HEMOGLOBIN 13.4 g/dl (13.5-17.5); MEAN CORPUSCULAR HEMOGLOBIN 30.2 pg (27.0-33.0); MEAN CORPUSCULAR HGB CONC 31.2 g/dl (32.0-36.5); MEAN CORPUSCULAR VOLUME 96.6 fl (80.0-96.0); PLATELET COUNT, AUTOMATED 477 10^3/uL (150-450); RED BLOOD COUNT 4.44 10^6/uL (4.30-6.10); WHITE BLOOD COUNT 18.7 10^3/uL (4.0-10.0)
[2022-04-23 06:02] LABS: CALCIUM LEVEL 9.1 MG/DL (8.8-10.2); CREATININE FOR GFR 2.88 MG/DL (0.70-1.30); GLOMERULAR FILTRATION RATE 23.9 (>49); POTASSIUM SERUM 3.8 MEQ/L (3.5-5.1)
[2022-04-23 08:10] VITALS: BP 120/58
[2022-04-23] MEDS: DRONABINOL 2.5MG CAP (MARINOL) PO SCH ×4 (09:04→20:08)
[2022-04-23] MEDS: INSULIN LISPRO (NovoLOG) PER UNIT SC SCH ×4 (09:05→20:08)
[2022-04-23] MEDS: TAMSULOSIN 0.4 MG CAP PO SCH (09:05)
[2022-04-23] MEDS: ASPIRIN 81 MG CHEW TABLET PO SCH (09:05)
[2022-04-23] MEDS: CLOPIDOGREL 75 MG TAB PO SCH (09:05)
[2022-04-23] MEDS: APIXABAN 5 MG TAB (ELIQUIS) PO SCH ×2 (09:06→20:08)
[2022-04-23] MEDS: BISACODYL 10 MG SUPP PR SCH ×2 (09:06→20:08)
[2022-04-23] MEDS: CitaloPRAM (CeleXA) 20 MG TAB PO SCH (09:06)
[2022-04-23] MEDS: SENOKOT S TAB PO SCH ×2 (09:06→20:08)
[2022-04-23] MEDS: CLOTRIMAZOLE 1% TOPICAL CREAM 30GM TOP SCH ×2 (09:07→20:09)
[2022-04-23] MEDS: MIRALAX *UNIT DOSE* 17GM PACKET PO SCH (09:08)
[2022-04-23] MEDS: METOPROLOL SUCC *XL* 25MG TAB (TopROL *XL*) PO SCH (09:08)
[2022-04-23] MEDS: NICOTINE 14 MG/24 HR TRANSDERMAL TD SCH (09:09)
[2022-04-23 11:55] VITALS: BP 107/55
[2022-04-23 12:10] LABS: APPEARANCE, URINE HAZY (CLEAR); BACTERIA, URINE AUTO 1+ (NEGATIVE); BILIRUBIN, URINE AUTO NEGATIVE (NEGATIVE); BLOOD, URINE BLOOD NEGATIVE (NEGATIVE); COLOR, URINE AMBER (YELLOW); GLUCOSE, URINE (UA) AUTO NEGATIVE (NEGATIVE); KETONE, URINE AUTO TRACE mg/dL (NEGATIVE); LEUKOCYTE ESTERASE, URINE AUTO NEGATIVE (NEGATIVE); MUCUS, URINE SMALL (NEGATIVE); NITRITE, URINE AUTO NEGATIVE (NEGATIVE); PROTEIN, URINE AUTO 1+ mg/dL (NEGATIVE); RBC, URINE AUTO 2 /HPF (0-3); SPECIFIC GRAVITY URINE AUTO 1.029 (1.002-1.035); SQUAMOUS EPITHELIAL CELL UR AU 1 /HPF (0-6); WBC, URINE AUTO 3 /HPF (0-3)
[2022-04-23] MEDS: diltiaZEM 125 MG in NS 100 ML IV SCH (12:12)
[2022-04-23 16:44] VITALS: BP 118/79
[2022-04-23] MEDS: CEFTAROLINE FOSAMIL 400 MG in D5W MINI-BAG PLUS 50 ML IV SCH (18:20)
[2022-04-23] MEDS: NS 1,000 ML IV SCH (18:31)
[2022-04-23 19:58] VITALS: BP 108/57
[2022-04-23] MEDS: ATORVASTATIN 20 MG TAB PO SCH (20:08)
[2022-04-23] MEDS: DAPTOmycin 1,000 MG in NS 50 ML IV SCH (20:09)
[2022-04-23] MEDS: **NOTE PATIENT COMMENT** MISC XX SCH (20:10)
[2022-04-24 00:10] VITALS: BP 116/73
[2022-04-24] MEDS: LACTULOSE 20 GM/30 ML SYRUP UD PO SCH ×4 (00:14→17:31)
[2022-04-24 00:35] VITALS: BP 105/57
[2022-04-24] MEDS: IPRATROPIUM 0.5MG/ALBUTEROL 2.5MG INH SOL UD 3ML (DUONEB) NEB SCH ×4 (01:58→19:59)
[2022-04-24] MEDS: CEFTAROLINE FOSAMIL 400 MG in D5W MINI-BAG PLUS 50 ML IV SCH ×2 (02:14→10:28)
[2022-04-24] MEDS: NS 1,000 ML IV SCH ×3 (02:14→17:02)
[2022-04-24 03:41] VITALS: BP 122/62
[2022-04-24] MEDS: SODIUM CHLORIDE 0.9% INJ 10 ML SYR IV SCH ×3 (04:44→19:20)
[2022-04-24] MEDS: diltiaZEM 125 MG in NS 100 ML IV SCH (04:47)
[2022-04-24 05:55] LABS: HEMATOCRIT 39.9 % (42.0-52.0); HEMOGLOBIN 12.5 g/dl (13.5-17.5); MEAN CORPUSCULAR HEMOGLOBIN 29.8 pg (27.0-33.0); MEAN CORPUSCULAR HGB CONC 31.3 g/dl (32.0-36.5); MEAN CORPUSCULAR VOLUME 95.2 fl (80.0-96.0); PLATELET COUNT, AUTOMATED 459 10^3/uL (150-450); RED BLOOD COUNT 4.19 10^6/uL (4.30-6.10); WHITE BLOOD COUNT 17.9 10^3/uL (4.0-10.0)
[2022-04-24 06:18] LABS: CALCIUM LEVEL 8.7 MG/DL (8.8-10.2); CREATININE FOR GFR 3.91 MG/DL (0.70-1.30); GLOMERULAR FILTRATION RATE 16.8 (>49); POTASSIUM SERUM 3.7 MEQ/L (3.5-5.1)
[2022-04-24 08:03] VITALS: BP 105/50
[2022-04-24] MEDS: METOPROLOL SUCC *XL* 25MG TAB (TopROL *XL*) PO SCH (09:00)
[2022-04-24] MEDS: ASPIRIN 81 MG CHEW TABLET PO SCH (09:01)
[2022-04-24] MEDS: TAMSULOSIN 0.4 MG CAP PO SCH (09:02)
[2022-04-24] MEDS: CLOPIDOGREL 75 MG TAB PO SCH (09:02)
[2022-04-24] MEDS: INSULIN LISPRO (NovoLOG) PER UNIT SC SCH ×4 (09:02→21:00)
[2022-04-24] MEDS: APIXABAN 5 MG TAB (ELIQUIS) PO SCH (09:02)
[2022-04-24] MEDS: CitaloPRAM (CeleXA) 20 MG TAB PO SCH (09:02)
[2022-04-24] MEDS: FUROSEMIDE 40 MG TAB PO SCH (09:02)
[2022-04-24] MEDS: DRONABINOL 2.5MG CAP (MARINOL) PO SCH ×4 (09:03→21:02)
[2022-04-24] MEDS: NICOTINE 14 MG/24 HR TRANSDERMAL TD SCH (09:06)
[2022-04-24] MEDS: SENOKOT S TAB PO SCH ×2 (09:06→21:03)
[2022-04-24] MEDS: MIRALAX *UNIT DOSE* 17GM PACKET PO SCH (09:06)
[2022-04-24] MEDS: CLOTRIMAZOLE 1% TOPICAL CREAM 30GM TOP SCH ×2 (10:28→21:04)
[2022-04-24] MEDS: BISACODYL 10 MG SUPP PR SCH ×2 (10:28→21:02)
[2022-04-24] MEDS ORDERED: PANTOPRAZOLE 40MG VIAL IV SCH (13:00)
[2022-04-24] MEDS ORDERED: LIDOCAINE 1% MDV 20ML VIAL As Ordered ONE (16:00)
[2022-04-24 17:06] VITALS: BP 115/60
[2022-04-24] MEDS: CEFTAROLINE FOSAMIL 300 MG in D5W 50 ML IV SCH (17:27)
[2022-04-24] MEDS: SUCRALFATE SUSP 1GM/10ML UD PO SCH ×2 (17:27→21:02)
[2022-04-24] MEDS ORDERED: SODIUM CHLORIDE 0.9% INJ 10 ML SYR IV PRN (18:00)
[2022-04-24 18:08] LABS: ABG BASE EXCESS 3.8 (-2.0-2.0); ABG HCO3 30.8 MEQ/L (22.0-26.0); ABG O2 SATURATION 79.2 % (95.0-99.0); ABG PARTIAL PRESSURE CO2 57.5 mmHg (35.0-45.0); ABG STANDARD HCO3 27.5 MEQ/L (22.0-26.0); ABG TOTAL CO2 32.6 MEQ/L (23.0-31.0); ABG pH (ARTERIAL) 7.347 UNITS (7.350-7.450)
[2022-04-24 18:12] LABS: ABG PARTIAL PRESSURE O2 46.2 mmHg (75.0-100.0)
[2022-04-24 19:52] VITALS: BP 115/55
[2022-04-24] MEDS ORDERED: FLUCONAZOLE 200 MG in IV 1 EA IV ONE (20:00)
[2022-04-24 21:00] LABS: ABG HCO3 31.6 MEQ/L (22.0-26.0); ABG O2 SATURATION 85.1 % (95.0-99.0); ABG PARTIAL PRESSURE O2 52.2 mmHg (75.0-100.0); ABG STANDARD HCO3 28.7 MEQ/L (22.0-26.0); ABG TOTAL CO2 33.4 MEQ/L (23.0-31.0)
[2022-04-24 21:41] LABS: CALCIUM LEVEL 8.1 MG/DL (8.8-10.2); CREATININE FOR GFR 3.99 MG/DL (0.70-1.30); GLOMERULAR FILTRATION RATE 16.4 (>49); POTASSIUM SERUM 3.8 MEQ/L (3.5-5.1)
[2022-04-25] VITALS (16 sets, daily range): BP systolic 93–151; BP diastolic 42–86
[2022-04-25] MEDS: diltiaZEM 125 MG in NS 100 ML IV SCH (01:01)
[2022-04-25] MEDS: IPRATROPIUM 0.5MG/ALBUTEROL 2.5MG INH SOL UD 3ML (DUONEB) NEB SCH ×4 (02:00→19:16)
[2022-04-25] MEDS: CEFTAROLINE FOSAMIL 300 MG in D5W 50 ML IV SCH ×3 (02:00→18:03)
[2022-04-25 04:13] LABS: RSV AMPLIFICATION NEGATIVE (NEGATIVE)
[2022-04-25 05:46] LABS: HEMATOCRIT 36.9 % (42.0-52.0); HEMOGLOBIN 11.2 g/dl (13.5-17.5); MEAN CORPUSCULAR HEMOGLOBIN 29.1 pg (27.0-33.0); MEAN CORPUSCULAR HGB CONC 30.4 g/dl (32.0-36.5); MEAN CORPUSCULAR VOLUME 95.8 fl (80.0-96.0); PLATELET COUNT, AUTOMATED 424 10^3/uL (150-450); RED BLOOD COUNT 3.85 10^6/uL (4.30-6.10); WHITE BLOOD COUNT 16.4 10^3/uL (4.0-10.0)
[2022-04-25] MEDS: LACTULOSE 20 GM/30 ML SYRUP UD PO SCH ×2 (06:00)
[2022-04-25] MEDS: SODIUM CHLORIDE 0.9% INJ 10 ML SYR IV SCH ×4 (06:00→17:55)
[2022-04-25 06:06] LABS: ERYTHROCYTE SEDIMENTATION RATE 86 mm/hr (0-20)
[2022-04-25 06:21] LABS: C REACTIVE PROTEIN QUANTITATIV 10.3 MG/DL (0.00-0.30); CALCIUM LEVEL 8.5 MG/DL (8.8-10.2); CREATININE FOR GFR 3.61 MG/DL (0.70-1.30); GLOMERULAR FILTRATION RATE 18.4 (>49); POTASSIUM SERUM 3.8 MEQ/L (3.5-5.1)
[2022-04-25] MEDS: SUCRALFATE SUSP 1GM/10ML UD PO SCH ×4 (07:30→21:29)
[2022-04-25] MEDS: INSULIN LISPRO (NovoLOG) PER UNIT SC SCH ×4 (07:30→21:00)
[2022-04-25 08:09] LABS: ABG BASE EXCESS -0.3 (-2.0-2.0); ABG HCO3 27.1 MEQ/L (22.0-26.0); ABG O2 SATURATION 93.6 % (95.0-99.0); ABG PARTIAL PRESSURE CO2 56.7 mmHg (35.0-45.0); ABG PARTIAL PRESSURE O2 77.1 mmHg (75.0-100.0); ABG STANDARD HCO3 24.2 MEQ/L (22.0-26.0); ABG TOTAL CO2 28.8 MEQ/L (23.0-31.0); ABG pH (ARTERIAL) 7.297 UNITS (7.350-7.450)
[2022-04-25] MEDS ORDERED: FUROSEMIDE 100MG/10ML VIAL (J1940) IV ONE ×2 (08:20→09:15)
[2022-04-25] MEDS: CitaloPRAM (CeleXA) 20 MG TAB PO SCH (09:00)
[2022-04-25] MEDS: MIRALAX *UNIT DOSE* 17GM PACKET PO SCH (09:00)
[2022-04-25] MEDS: ASPIRIN 81 MG CHEW TABLET PO SCH (09:00)
[2022-04-25] MEDS: METOPROLOL SUCC *XL* 25MG TAB (TopROL *XL*) PO SCH (09:00)
[2022-04-25] MEDS: CLOPIDOGREL 75 MG TAB PO SCH (09:00)
[2022-04-25] MEDS: SENOKOT S TAB PO SCH ×2 (09:00→21:29)
[2022-04-25] MEDS: DRONABINOL 2.5MG CAP (MARINOL) PO SCH (09:25)
[2022-04-25] MEDS: **NOTE PATIENT COMMENT** MISC XX SCH ×2 (09:25→21:31)
[2022-04-25] MEDS: CLOTRIMAZOLE 1% TOPICAL CREAM 30GM TOP SCH ×2 (09:47→21:29)
[2022-04-25] MEDS: BISACODYL 10 MG SUPP PR SCH ×2 (09:48→21:00)
[2022-04-25] MEDS: NICOTINE 14 MG/24 HR TRANSDERMAL TD SCH (09:48)
[2022-04-25] MEDS ORDERED: HEPARIN SOD (PORCINE) 5000UNITS/ML 1ML VIAL/SYRINGE IV PRN (10:50)
[2022-04-25] MEDS: PANTOPRAZOLE 40MG VIAL IV SCH ×2 (12:33→21:30)
[2022-04-25 13:08] LABS: HEMATOCRIT 37.2 % (42.0-52.0); HEMOGLOBIN 11.3 g/dl (13.5-17.5); MEAN CORPUSCULAR HEMOGLOBIN 30.1 pg (27.0-33.0); MEAN CORPUSCULAR HGB CONC 30.4 g/dl (32.0-36.5); MEAN CORPUSCULAR VOLUME 99.2 fl (80.0-96.0); PLATELET COUNT, AUTOMATED 436 10^3/uL (150-450); RED BLOOD COUNT 3.75 10^6/uL (4.30-6.10); WHITE BLOOD COUNT 15.4 10^3/uL (4.0-10.0)
[2022-04-25] MEDS: HEPARIN DRIP 25,000 UNITS in IV 1 EA IV SCH (13:33)
[2022-04-25] MEDS ORDERED: METOPROLOL 5 MG/5 ML VIAL IV SCH (14:20)
[2022-04-25] MEDS ORDERED: METOPROLOL 5 MG/5 ML VIAL IV PRN (14:40)
[2022-04-25 15:16] LABS: CALCIUM LEVEL 8.8 MG/DL (8.8-10.2); CREATININE FOR GFR 3.47 MG/DL (0.70-1.30); GLOMERULAR FILTRATION RATE 19.2 (>49); POTASSIUM SERUM 3.7 MEQ/L (3.5-5.1)
[2022-04-25 15:42] LABS: PHOSPHORUS LEVEL 5.6 MG/DL (2.5-4.9)
[2022-04-25] MEDS ORDERED: POTASSIUM CHLORIDE 10% LIQ 20 MEQ/15 ML UDC PO ONE (16:50)
[2022-04-25] MEDS ORDERED: INSULIN LISPRO (NovoLOG) PER UNIT SC SCH (18:00)
[2022-04-25] MEDS ORDERED: DAPTOmycin 1,000 MG in NS 50 ML IV SCH (21:00)
[2022-04-25] MEDS: ACETAMINOPHEN TAB 650MG DOSE (2X325MG) PO PRN (21:17)
[2022-04-26] VITALS (10 sets, daily range): BP systolic 104–130; BP diastolic 44–68; O2SAT 92
[2022-04-26] MEDS: IPRATROPIUM 0.5MG/ALBUTEROL 2.5MG INH SOL UD 3ML (DUONEB) NEB SCH ×4 (01:28→19:20)
[2022-04-26] MEDS: CAPSAICIN 0.025% CR 60 GM TOP PRN ×2 (01:49→20:42)
[2022-04-26] MEDS: CEFTAROLINE FOSAMIL 300 MG in D5W 50 ML IV SCH ×2 (01:57→08:49)
[2022-04-26 03:53] LABS: HEMATOCRIT 34.6 % (42.0-52.0); HEMOGLOBIN 10.6 g/dl (13.5-17.5); MEAN CORPUSCULAR HEMOGLOBIN 30.3 pg (27.0-33.0); MEAN CORPUSCULAR HGB CONC 30.6 g/dl (32.0-36.5); MEAN CORPUSCULAR VOLUME 98.9 fl (80.0-96.0); PLATELET COUNT, AUTOMATED 405 10^3/uL (150-450); WHITE BLOOD COUNT 14.1 10^3/uL (4.0-10.0)
[2022-04-26] MEDS: SODIUM CHLORIDE 0.9% INJ 10 ML SYR IV SCH ×4 (05:18→17:31)
[2022-04-26 05:31] LABS: ALBUMIN 2.1 GM/DL (3.2-5.2); BILIRUBIN,TOTAL 0.3 MG/DL (0.2-1.0); CALCIUM LEVEL 8.2 MG/DL (8.8-10.2); CREATININE FOR GFR 2.99 MG/DL (0.70-1.30); GLOMERULAR FILTRATION RATE 22.8 (>49); MAGNESIUM LEVEL 2.4 MG/DL (1.8-2.4); PHOSPHORUS LEVEL 3.8 MG/DL (2.5-4.9); POTASSIUM SERUM 3.7 MEQ/L (3.5-5.1); TOTAL PROTEIN 5.5 GM/DL (6.4-8.2)
[2022-04-26 05:54] LABS: ABG BASE EXCESS 8.2 (-2.0-2.0); ABG HCO3 34.5 MEQ/L (22.0-26.0); ABG O2 SATURATION 95.1 % (95.0-99.0); ABG PARTIAL PRESSURE O2 74.9 mmHg (75.0-100.0); ABG STANDARD HCO3 31.9 MEQ/L (22.0-26.0); ABG TOTAL CO2 36.2 MEQ/L (23.0-31.0); ABG pH (ARTERIAL) 7.407 UNITS (7.350-7.450)
[2022-04-26] MEDS: HEPARIN DRIP 25,000 UNITS in IV 1 EA IV SCH (06:05)
[2022-04-26] MEDS: INSULIN LISPRO (NovoLOG) PER UNIT SC SCH ×4 (07:30→20:48)
[2022-04-26] MEDS: SUCRALFATE SUSP 1GM/10ML UD PO SCH ×4 (07:37→20:40)
[2022-04-26] MEDS: METOPROLOL SUCC *XL* 25MG TAB (TopROL *XL*) PO SCH (08:45)
[2022-04-26] MEDS: NICOTINE 14 MG/24 HR TRANSDERMAL TD SCH (08:46)
[2022-04-26] MEDS: ASPIRIN 81 MG CHEW TABLET PO SCH (08:46)
[2022-04-26] MEDS: MIRALAX *UNIT DOSE* 17GM PACKET PO SCH (08:46)
[2022-04-26] MEDS: ACETAMINOPHEN TAB 650MG DOSE (2X325MG) PO PRN ×2 (08:47→20:49)
[2022-04-26] MEDS: PANTOPRAZOLE 40MG VIAL IV SCH (08:47)
[2022-04-26] MEDS: SENOKOT S TAB PO SCH ×2 (08:47→20:40)
[2022-04-26] MEDS: CitaloPRAM (CeleXA) 20 MG TAB PO SCH (08:48)
[2022-04-26] MEDS: CLOTRIMAZOLE 1% TOPICAL CREAM 30GM TOP SCH ×2 (08:49→21:00)
[2022-04-26] MEDS: BISACODYL 10 MG SUPP PR SCH ×2 (09:00→20:41)
[2022-04-26] MEDS ORDERED: ACETAMINOPHEN 1000MG 100ML IV BTL (OFIRMEV) (J0131 PER 10MG) IV ONE (09:00)
[2022-04-26] MEDS ORDERED: FUROSEMIDE 100MG/10ML VIAL (J1940) IV ONE (09:00)
[2022-04-26] MEDS: CEFTAROLINE FOSAMIL 400 MG in D5W MINI-BAG PLUS 50 ML IV SCH (17:31)
[2022-04-26] MEDS: DAPTOmycin 1,000 MG in NS 50 ML IV SCH (20:40)
[2022-04-26] MEDS: **NOTE PATIENT COMMENT** MISC XX SCH (20:41)
[2022-04-27] VITALS (10 sets, daily range): BP systolic 113–157; BP diastolic 58–87; O2SAT 92
[2022-04-27] MEDS: CEFTAROLINE FOSAMIL 400 MG in D5W MINI-BAG PLUS 50 ML IV SCH ×3 (01:58→17:39)
[2022-04-27] MEDS: IPRATROPIUM 0.5MG/ALBUTEROL 2.5MG INH SOL UD 3ML (DUONEB) NEB SCH ×4 (03:18→20:01)
[2022-04-27] MEDS: SODIUM CHLORIDE 0.9% INJ 10 ML SYR IV SCH ×4 (05:10→17:40)
[2022-04-27] MEDS: ACETAMINOPHEN TAB 650MG DOSE (2X325MG) PO PRN ×2 (05:10→20:17)
[2022-04-27 05:32] LABS: HEMATOCRIT 36.9 % (42.0-52.0); HEMOGLOBIN 11.3 g/dl (13.5-17.5); MEAN CORPUSCULAR HGB CONC 30.6 g/dl (32.0-36.5); MEAN CORPUSCULAR VOLUME 97.9 fl (80.0-96.0); PLATELET COUNT, AUTOMATED 451 10^3/uL (150-450); RED BLOOD COUNT 3.77 10^6/uL (4.30-6.10); WHITE BLOOD COUNT 16.3 10^3/uL (4.0-10.0)
[2022-04-27 06:12] LABS: ALBUMIN 2.3 GM/DL (3.2-5.2); CALCIUM LEVEL 8.8 MG/DL (8.8-10.2); CREATININE FOR GFR 2.22 MG/DL (0.70-1.30); GLOMERULAR FILTRATION RATE 32.2 (>49); MAGNESIUM LEVEL 2.2 MG/DL (1.8-2.4); PHOSPHORUS LEVEL 2.5 MG/DL (2.5-4.9)
[2022-04-27] MEDS: INSULIN LISPRO (NovoLOG) PER UNIT SC SCH ×4 (07:30→20:15)
[2022-04-27] MEDS: SUCRALFATE SUSP 1GM/10ML UD PO SCH ×4 (07:32→20:12)
[2022-04-27] MEDS: METOPROLOL SUCC *XL* 25MG TAB (TopROL *XL*) PO SCH (08:05)
[2022-04-27] MEDS: CitaloPRAM (CeleXA) 20 MG TAB PO SCH (08:05)
[2022-04-27] MEDS: SENOKOT S TAB PO SCH ×2 (08:05→20:12)
[2022-04-27] MEDS: NICOTINE 14 MG/24 HR TRANSDERMAL TD SCH (08:06)
[2022-04-27] MEDS: ASPIRIN 81 MG CHEW TABLET PO SCH (08:08)
[2022-04-27] MEDS: CLOTRIMAZOLE 1% TOPICAL CREAM 30GM TOP SCH ×2 (08:52→20:13)
[2022-04-27] MEDS: MIRALAX *UNIT DOSE* 17GM PACKET PO SCH (08:53)
[2022-04-27] MEDS: BISACODYL 10 MG SUPP PR SCH ×2 (08:53→20:12)
[2022-04-27] MEDS: APIXABAN 5 MG TAB (ELIQUIS) PO SCH ×2 (09:17→20:12)
[2022-04-27] MEDS: CAPSAICIN 0.025% CR 60 GM TOP PRN (12:36)
[2022-04-27] MEDS: DAPTOmycin 1,000 MG in NS 50 ML IV SCH (20:12)
[2022-04-27] MEDS: **NOTE PATIENT COMMENT** MISC XX SCH (20:13)
[2022-04-27] MEDS ORDERED: carisoprodoL 350 MG TAB PO ONE (21:00)
[2022-04-27] MEDS: RAMELTEON 8 MG TAB (ROZEREM) PO PRN (21:13)
[2022-04-28] MEDS: CEFTAROLINE FOSAMIL 400 MG in D5W MINI-BAG PLUS 50 ML IV SCH ×3 (01:25→18:02)
[2022-04-28] MEDS ORDERED: MORPHINE 2 MG/ML 1ML VIAL IV ONE (01:35)
[2022-04-28] MEDS: IPRATROPIUM 0.5MG/ALBUTEROL 2.5MG INH SOL UD 3ML (DUONEB) NEB SCH ×4 (01:37→19:48)
[2022-04-28] MEDS: SODIUM CHLORIDE 0.9% INJ 10 ML SYR IV SCH ×4 (05:51→17:10)
[2022-04-28 06:00] VITALS: BP 155/82
[2022-04-28 06:36] LABS: HEMATOCRIT 37.3 % (42.0-52.0); HEMOGLOBIN 11.5 g/dl (13.5-17.5); MEAN CORPUSCULAR HEMOGLOBIN 29.9 pg (27.0-33.0); MEAN CORPUSCULAR HGB CONC 30.8 g/dl (32.0-36.5); MEAN CORPUSCULAR VOLUME 96.9 fl (80.0-96.0); PLATELET COUNT, AUTOMATED 439 10^3/uL (150-450); RED BLOOD COUNT 3.85 10^6/uL (4.30-6.10); WHITE BLOOD COUNT 13.6 10^3/uL (4.0-10.0)
[2022-04-28 06:55] LABS: CALCIUM LEVEL 8.9 MG/DL (8.8-10.2); CREATININE FOR GFR 1.75 MG/DL (0.70-1.30); GLOMERULAR FILTRATION RATE 42.4 (>49); POTASSIUM SERUM 4.5 MEQ/L (3.5-5.1)
[2022-04-28 07:00] VITALS: BP 130/90
[2022-04-28 08:12] VITALS: BP 130/84
[2022-04-28] MEDS: SUCRALFATE SUSP 1GM/10ML UD PO SCH ×4 (08:17→20:41)
[2022-04-28] MEDS: SENOKOT S TAB PO SCH ×2 (08:18→20:41)
[2022-04-28] MEDS: INSULIN LISPRO (NovoLOG) PER UNIT SC SCH ×4 (08:18→20:42)
[2022-04-28] MEDS: MIRALAX *UNIT DOSE* 17GM PACKET PO SCH (08:19)
[2022-04-28] MEDS: BISACODYL 10 MG SUPP PR SCH ×2 (08:19→20:46)
[2022-04-28] MEDS: METOPROLOL SUCC *XL* 25MG TAB (TopROL *XL*) PO SCH (08:19)
[2022-04-28] MEDS: APIXABAN 5 MG TAB (ELIQUIS) PO SCH ×3 (08:20→21:00)
[2022-04-28] MEDS: CitaloPRAM (CeleXA) 20 MG TAB PO SCH (08:20)
[2022-04-28] MEDS: NORCO, ANEXSIA 5/325MG TABLET (HYDROcodone/ACETAMINOPHEN) PO PRN ×3 (08:21→22:36)
[2022-04-28] MEDS: NICOTINE 14 MG/24 HR TRANSDERMAL TD SCH (08:22)
[2022-04-28] MEDS: CLOTRIMAZOLE 1% TOPICAL CREAM 30GM TOP SCH ×2 (08:22→20:42)
[2022-04-28] MEDS: ASPIRIN 81 MG CHEW TABLET PO SCH (08:40)
[2022-04-28 14:00] VITALS: BP 132/88
[2022-04-28] MEDS: FUROSEMIDE 40 MG TAB PO SCH (17:09)
[2022-04-28 19:36] VITALS: BP 166/81
[2022-04-28] MEDS: RAMELTEON 8 MG TAB (ROZEREM) PO PRN (20:41)
[2022-04-28] MEDS: DAPTOmycin 1,000 MG in NS 50 ML IV SCH (20:41)
[2022-04-28] MEDS: TAMSULOSIN 0.4 MG CAP PO SCH (20:41)
[2022-04-28] MEDS: **NOTE PATIENT COMMENT** MISC XX SCH (20:42)
[2022-04-28] MEDS ORDERED: PANTOPRAZOLE 40MG VIAL IV ONE (21:15)
[2022-04-29] MEDS: IPRATROPIUM 0.5MG/ALBUTEROL 2.5MG INH SOL UD 3ML (DUONEB) NEB SCH ×4 (02:00→20:41)
[2022-04-29] MEDS: CEFTAROLINE FOSAMIL 400 MG in D5W MINI-BAG PLUS 50 ML IV SCH ×2 (02:03→10:08)
[2022-04-29] MEDS: ACETAMINOPHEN TAB 650MG DOSE (2X325MG) PO PRN (02:03)
[2022-04-29 05:41] VITALS: BP 161/63
[2022-04-29] MEDS: SODIUM CHLORIDE 0.9% INJ 10 ML SYR IV SCH ×4 (06:08→17:53)
[2022-04-29 07:28] LABS: HEMATOCRIT 38.6 % (42.0-52.0); MEAN CORPUSCULAR HEMOGLOBIN 29.6 pg (27.0-33.0); MEAN CORPUSCULAR HGB CONC 31.1 g/dl (32.0-36.5); MEAN CORPUSCULAR VOLUME 95.3 fl (80.0-96.0); PLATELET COUNT, AUTOMATED 422 10^3/uL (150-450); RED BLOOD COUNT 4.05 10^6/uL (4.30-6.10)
[2022-04-29 07:46] LABS: CALCIUM LEVEL 9.2 MG/DL (8.8-10.2); CREATININE FOR GFR 1.53 MG/DL (0.70-1.30); GLOMERULAR FILTRATION RATE 49.5 (>49); POTASSIUM SERUM 4.2 MEQ/L (3.5-5.1)
[2022-04-29 08:05] LABS: INR 1.01; PROTHROMBIN TIME 13.7 SECONDS (12.7-14.5)
[2022-04-29] MEDS: SUCRALFATE SUSP 1GM/10ML UD PO SCH ×4 (08:15→21:21)
[2022-04-29] MEDS: INSULIN LISPRO (NovoLOG) PER UNIT SC SCH ×4 (08:16→21:00)
[2022-04-29] MEDS: BISACODYL 10 MG SUPP PR SCH (08:16)
[2022-04-29] MEDS: NICOTINE 14 MG/24 HR TRANSDERMAL TD SCH (08:16)
[2022-04-29] MEDS: CitaloPRAM (CeleXA) 20 MG TAB PO SCH (08:17)
[2022-04-29] MEDS: SENOKOT S TAB PO SCH ×2 (08:17→21:21)
[2022-04-29] MEDS: APIXABAN 5 MG TAB (ELIQUIS) PO SCH ×2 (08:17→21:22)
[2022-04-29] MEDS: CLOTRIMAZOLE 1% TOPICAL CREAM 30GM TOP SCH ×2 (08:17→21:22)
[2022-04-29] MEDS: ASPIRIN 81 MG CHEW TABLET PO SCH (08:18)
[2022-04-29] MEDS: MIRALAX *UNIT DOSE* 17GM PACKET PO SCH (08:18)
[2022-04-29] MEDS: FUROSEMIDE 40 MG TAB PO SCH ×2 (08:18→17:51)
[2022-04-29] MEDS: NORCO, ANEXSIA 5/325MG TABLET (HYDROcodone/ACETAMINOPHEN) PO PRN (08:18)
[2022-04-29] MEDS: METOPROLOL SUCC *XL* 25MG TAB (TopROL *XL*) PO SCH (08:21)
[2022-04-29] MEDS: oxyCODONE 5MG TAB PO PRN ×2 (10:08→19:40)
[2022-04-29 14:00] VITALS: BP 158/72
[2022-04-29] MEDS: FLUCONAZOLE 100 MG TAB PO SCH (18:34)
[2022-04-29 21:06] LABS: BASO # 0.1 10^3/uL (0.0-0.2); BASO % 0.7 % (0.0-1.0); EOS # 0.3 10^3/uL (0.0-0.5); EOS % 2.7 % (0.0-3.0); LYMPH % 9.1 % (24.0-44.0); MONO # 0.9 10^3/uL (0.0-0.8); NEUTROPHILS # 8.9 10^3/uL (1.5-8.5); NEUTROPHILS % 78.5 % (36.0-66.0)
[2022-04-29] MEDS: TAMSULOSIN 0.4 MG CAP PO SCH (21:21)
[2022-04-29] MEDS: **NOTE PATIENT COMMENT** MISC XX SCH (21:22)
[2022-04-29] MEDS: DAPTOmycin 1,000 MG in NS 50 ML IV SCH (21:22)
[2022-04-29 22:00] VITALS: BP 156/71
[2022-04-29] MEDS: SODIUM CHLORIDE 0.9% INJ 10 ML SYR IV PRN (22:17)
[2022-04-29 22:41] LABS: PLATELET ESTIMATE NORMAL (NORMAL)
[2022-04-30] VITALS (10 sets, daily range): BP systolic 106–145; BP diastolic 56–80
[2022-04-30] MEDS: IPRATROPIUM 0.5MG/ALBUTEROL 2.5MG INH SOL UD 3ML (DUONEB) NEB SCH ×4 (02:00→20:45)
[2022-04-30] MEDS: oxyCODONE 5MG TAB PO PRN ×3 (02:37→20:13)
[2022-04-30] MEDS: SODIUM CHLORIDE 0.9% INJ 10 ML SYR IV SCH ×4 (05:25→18:06)
[2022-04-30 05:59] LABS: HEMATOCRIT 37.3 % (42.0-52.0); HEMOGLOBIN 11.3 g/dl (13.5-17.5); MEAN CORPUSCULAR HEMOGLOBIN 30.3 pg (27.0-33.0); MEAN CORPUSCULAR HGB CONC 30.3 g/dl (32.0-36.5); PLATELET COUNT, AUTOMATED 416 10^3/uL (150-450); RED BLOOD COUNT 3.73 10^6/uL (4.30-6.10); WHITE BLOOD COUNT 10.2 10^3/uL (4.0-10.0)
[2022-04-30 06:23] LABS: CREATININE FOR GFR 1.53 MG/DL (0.70-1.30); GLOMERULAR FILTRATION RATE 49.5 (>49); POTASSIUM SERUM 3.8 MEQ/L (3.5-5.1)
[2022-04-30 06:59] LABS: ERYTHROCYTE SEDIMENTATION RATE > 140 mm/hr (0-20)
[2022-04-30] MEDS: INSULIN LISPRO (NovoLOG) PER UNIT SC SCH ×4 (07:30→20:02)
[2022-04-30] MEDS: ASPIRIN 81 MG CHEW TABLET PO SCH (09:00)
[2022-04-30] MEDS: APIXABAN 5 MG TAB (ELIQUIS) PO SCH ×2 (09:00→20:12)
[2022-04-30] MEDS: FLUCONAZOLE 100 MG TAB PO SCH (09:56)
[2022-04-30] MEDS: METOPROLOL SUCC *XL* 25MG TAB (TopROL *XL*) PO SCH (09:58)
[2022-04-30] MEDS: CitaloPRAM (CeleXA) 20 MG TAB PO SCH (09:59)
[2022-04-30] MEDS: FUROSEMIDE 40 MG TAB PO SCH (09:59)
[2022-04-30] MEDS: SENOKOT S TAB PO SCH ×2 (09:59→20:12)
[2022-04-30] MEDS: NICOTINE 14 MG/24 HR TRANSDERMAL TD SCH (10:00)
[2022-04-30] MEDS: CAPSAICIN 0.025% CR 60 GM TOP PRN (10:01)
[2022-04-30] MEDS: CLOTRIMAZOLE 1% TOPICAL CREAM 30GM TOP SCH ×2 (10:06→20:14)
[2022-04-30] MEDS: SUCRALFATE SUSP 1GM/10ML UD PO SCH ×4 (10:47→20:13)
[2022-04-30] MEDS ORDERED: LIDOCAINE VISCOUS 2% SOLN 15ML UDC As Ordered ONE (14:51)
[2022-04-30] MEDS ORDERED: CETACAINE SPRAY 5GM As Ordered ONE (14:51)
[2022-04-30] MEDS ORDERED: fentaNYL 100 MCG/2 ML INJECTION As Ordered ONE (15:18)
[2022-04-30] MEDS ORDERED: MIDAZOLAM INJ 2MG/2ML VIAL (J2250 PER 1MG) As Ordered ONE (15:18)
[2022-04-30] MEDS ORDERED: fentaNYL 100 MCG/2 ML INJECTION IV PRN (15:20)
[2022-04-30] MEDS ORDERED: oxyCODONE 5MG TAB PO PRN (15:20)
[2022-04-30] MEDS ORDERED: LR 1,000 ML IV SCH (15:20)
[2022-04-30] MEDS ORDERED: ONDANSETRON 4MG 2ML VIAL IV PRN (15:20)
[2022-04-30] MEDS: TAMSULOSIN 0.4 MG CAP PO SCH (20:12)
[2022-04-30] MEDS: DAPTOmycin 1,000 MG in NS 50 ML IV SCH (20:13)
[2022-04-30] MEDS: **NOTE PATIENT COMMENT** MISC XX SCH (20:14)
[2022-04-30] MEDS: RAMELTEON 8 MG TAB (ROZEREM) PO PRN (20:30)
[2022-04-30] MEDS: SODIUM CHLORIDE 0.9% INJ 10 ML SYR IV PRN (22:47)
[2022-05-01 02:00] VITALS: BP 130/64
[2022-05-01] MEDS: IPRATROPIUM 0.5MG/ALBUTEROL 2.5MG INH SOL UD 3ML (DUONEB) NEB SCH ×4 (02:00→19:33)
[2022-05-01] MEDS: oxyCODONE 5MG TAB PO PRN ×3 (02:53→17:47)
[2022-05-01] MEDS: SODIUM CHLORIDE 0.9% INJ 10 ML SYR IV SCH ×4 (05:06→17:48)
[2022-05-01 05:40] LABS: MEAN CORPUSCULAR HEMOGLOBIN 30.1 pg (27.0-33.0); MEAN CORPUSCULAR HGB CONC 30.6 g/dl (32.0-36.5); MEAN CORPUSCULAR VOLUME 98.6 fl (80.0-96.0); PLATELET COUNT, AUTOMATED 394 10^3/uL (150-450); RED BLOOD COUNT 3.65 10^6/uL (4.30-6.10); WHITE BLOOD COUNT 10.5 10^3/uL (4.0-10.0)
[2022-05-01 06:00] VITALS: BP 102/58
[2022-05-01 06:12] LABS: ALBUMIN 2.3 GM/DL (3.2-5.2); BILIRUBIN,DIRECT 0.2 MG/DL (0.0-0.2); BILIRUBIN,TOTAL 0.4 MG/DL (0.2-1.0); CALCIUM LEVEL 8.6 MG/DL (8.8-10.2); CHOLESTEROL RISK RATIO 4.405 (<5); CREATININE FOR GFR 1.74 MG/DL (0.70-1.30); GLOMERULAR FILTRATION RATE 42.7 (>49); POTASSIUM SERUM 3.8 MEQ/L (3.5-5.1)
[2022-05-01] MEDS: CLOTRIMAZOLE 1% TOPICAL CREAM 30GM TOP SCH ×2 (08:19→22:38)
[2022-05-01] MEDS: CAPSAICIN 0.025% CR 60 GM TOP PRN (08:19)
[2022-05-01] MEDS: NICOTINE 14 MG/24 HR TRANSDERMAL TD SCH (08:20)
[2022-05-01] MEDS: INSULIN LISPRO (NovoLOG) PER UNIT SC SCH ×4 (08:20→20:58)
[2022-05-01] MEDS: SUCRALFATE SUSP 1GM/10ML UD PO SCH ×4 (08:20→22:36)
[2022-05-01] MEDS: ASPIRIN 81 MG CHEW TABLET PO SCH (08:21)
[2022-05-01] MEDS: CitaloPRAM (CeleXA) 20 MG TAB PO SCH (08:21)
[2022-05-01] MEDS: SENOKOT S TAB PO SCH ×2 (08:21→22:37)
[2022-05-01] MEDS: FLUCONAZOLE 100 MG TAB PO SCH (08:21)
[2022-05-01] MEDS: APIXABAN 5 MG TAB (ELIQUIS) PO SCH ×2 (08:21→22:36)
[2022-05-01] MEDS: FUROSEMIDE 40 MG TAB PO SCH (08:22)
[2022-05-01] MEDS: METOPROLOL SUCC *XL* 25MG TAB (TopROL *XL*) PO SCH (08:27)
[2022-05-01 10:00] VITALS: BP 125/64
[2022-05-01 14:00] VITALS: BP 124/65
[2022-05-01] MEDS: **NOTE PATIENT COMMENT** MISC XX SCH (20:58)
[2022-05-01] MEDS: RAMELTEON 8 MG TAB (ROZEREM) PO PRN (22:36)
[2022-05-01] MEDS: TAMSULOSIN 0.4 MG CAP PO SCH (22:37)
[2022-05-01] MEDS: DAPTOmycin 1,000 MG in NS 50 ML IV SCH (22:38)
[2022-05-02] MEDS: oxyCODONE 5MG TAB PO PRN ×3 (00:08→13:35)
[2022-05-02] MEDS ORDERED: BENZONATATE 100MG CAPSULE PO PRN (00:20)
[2022-05-02] MEDS: IPRATROPIUM 0.5MG/ALBUTEROL 2.5MG INH SOL UD 3ML (DUONEB) NEB SCH ×2 (01:49→08:33)
[2022-05-02 02:00] VITALS: BP 138/76
[2022-05-02] MEDS: SODIUM CHLORIDE 0.9% INJ 10 ML SYR IV SCH ×2 (06:16)
[2022-05-02 07:28] LABS: HEMATOCRIT 36.4 % (42.0-52.0); HEMOGLOBIN 11.1 g/dl (13.5-17.5); MEAN CORPUSCULAR HEMOGLOBIN 30.1 pg (27.0-33.0); MEAN CORPUSCULAR HGB CONC 30.5 g/dl (32.0-36.5); MEAN CORPUSCULAR VOLUME 98.6 fl (80.0-96.0); PLATELET COUNT, AUTOMATED 380 10^3/uL (150-450); RED BLOOD COUNT 3.69 10^6/uL (4.30-6.10); WHITE BLOOD COUNT 10.2 10^3/uL (4.0-10.0)
[2022-05-02] MEDS: INSULIN LISPRO (NovoLOG) PER UNIT SC SCH ×2 (07:30→13:34)
[2022-05-02 07:55] LABS: CALCIUM LEVEL 8.7 MG/DL (8.8-10.2); CREATININE FOR GFR 1.55 MG/DL (0.70-1.30); GLOMERULAR FILTRATION RATE 48.8 (>49); POTASSIUM SERUM 3.9 MEQ/L (3.5-5.1)
[2022-05-02 08:30] VITALS: BP 96/51
[2022-05-02] MEDS: SUCRALFATE SUSP 1GM/10ML UD PO SCH ×2 (08:41→13:33)
[2022-05-02] MEDS: APIXABAN 5 MG TAB (ELIQUIS) PO SCH (08:42)
[2022-05-02] MEDS: SENOKOT S TAB PO SCH (08:42)
[2022-05-02] MEDS: FLUCONAZOLE 100 MG TAB PO SCH (08:42)
[2022-05-02] MEDS: CitaloPRAM (CeleXA) 20 MG TAB PO SCH (08:42)
[2022-05-02] MEDS: ASPIRIN 81 MG CHEW TABLET PO SCH (08:42)
[2022-05-02] MEDS: NORCO, ANEXSIA 5/325MG TABLET (HYDROcodone/ACETAMINOPHEN) PO PRN (08:43)
[2022-05-02] MEDS: NICOTINE 14 MG/24 HR TRANSDERMAL TD SCH (08:44)
[2022-05-02] MEDS: CLOTRIMAZOLE 1% TOPICAL CREAM 30GM TOP SCH (08:45)
[2022-05-02 09:00] VITALS: BP 96/51
[2022-05-02] MEDS: METOPROLOL SUCC *XL* 25MG TAB (TopROL *XL*) PO SCH (09:00)
[2022-05-02] MEDS: FUROSEMIDE 40 MG TAB PO SCH (09:00)
[2022-05-02] MEDS ORDERED: IPRA0.00 NEB (09:53)
[2022-05-02] MEDS ORDERED: DAPT500V8 IV (09:53)
[2022-05-02] MEDS ORDERED: METO1TAB32 PO (09:53)
[2022-05-02] MEDS ORDERED: HYDR-3715 PO (09:53)
[2022-05-02] MEDS ORDERED: FLOM0.4C39 PO (09:53)
[2022-05-02] MEDS ORDERED: SUCR1ORA PO (09:53)
[2022-05-02] MEDS ORDERED: ACET1TAB55 PO (09:53)
[2022-05-02] MEDS ORDERED: FLUC100T3 PO (09:53)
[2022-05-02] MEDS ORDERED: CAPS25CR TOP (09:53)
[2022-05-02] MEDS ORDERED: OXYC-517 PO (09:53)
[2022-05-02] MEDS ORDERED: CLOTR1CR TOP (09:53)
[2022-05-02] MEDS ORDERED: RAME8TAB2 PO (09:53)
[2022-05-02] MEDS ORDERED: NICO14PA TD (09:53)
[2022-05-02] MEDS ORDERED: INSUHUMDS SC ×2 (09:53)
[2022-05-02] MEDS ORDERED: SENN-52 PO (09:53)
[2022-05-02] MEDS: ACETAMINOPHEN TAB 650MG DOSE (2X325MG) PO PRN (10:41)
== END 2022-05-02 15:40 | disposition short-term general hospital (02) | DRG 871 ==
LOC: M ED 14:47 → M ED INP 19:08 → ENRESERV 21:22 → M MS5PR 22:00 → M PCU 04-20 18:06 → M ICU 04-25 08:59 → M MS5PR 04-27 10:10
PROVIDERS: ADMIT Internal Medicine; ATTEND Internal Medicine
PROC: 02HV33Z Insertion of Infusion Device into Superior Vena Cava, Percutaneous Approach (ICD-10-PCS; principal; 2022-04-14 09:00)
PROC: 02HV33Z Insertion of Infusion Device into Superior Vena Cava, Percutaneous Approach (ICD-10-PCS; 2022-04-24)
DX: R78.81 Bacteremia (principal); G93.41 Metabolic encephalopathy; J96.21 Acute and chronic respiratory failure with hypoxia; I50.33 Acute on chronic diastolic (congestive) heart failure; Z68.43 Body mass index [BMI] 50.0-59.9, adult; L02.31 Cutaneous abscess of buttock; J96.10 Chronic respiratory failure, unspecified whether with hypoxia or hypercapnia; E87.3 Alkalosis; K61.0 Anal abscess; N17.9 Acute kidney failure, unspecified; E87.2 Acidosis; I11.0 Hypertensive heart disease with heart failure; I71.2 Thoracic aortic aneurysm, without rupture; I25.10 Atherosclerotic heart disease of native coronary artery without angina pectoris; D75.1 Secondary polycythemia; J44.9 Chronic obstructive pulmonary disease, unspecified; E78.5 Hyperlipidemia, unspecified; E66.01 Morbid (severe) obesity due to excess calories; E11.9 Type 2 diabetes mellitus without complications; I48.91 Unspecified atrial fibrillation; G47.33 Obstructive sleep apnea (adult) (pediatric); Z95.2 Presence of prosthetic heart valve; K59.00 Constipation, unspecified; Z79.4 Long term (current) use of insulin; Z79.899 Other long term (current) drug therapy; Z79.82 Long term (current) use of aspirin; Z99.81 Dependence on supplemental oxygen; F17.200 Nicotine dependence, unspecified, uncomplicated; B95.61 Methicillin susceptible Staphylococcus aureus infection as the cause of diseases classified elsewhere; G89.29 Other chronic pain; B95.62 Methicillin resistant Staphylococcus aureus infection as the cause of diseases classified elsewhere; B35.3 Tinea pedis; B35.6 Tinea cruris

== ENCOUNTER → 2022-06-11 | Outpatient (REF) | payer MEDICARE ==
[~2022-06-11] MED LIST changes: +ACET1TAB55 PO; +CAPS25CR TOP; +CLOTR1CR TOP; +CYCL5TAB; +DAPT500V8 IV; +ELIQ2.5T PO; +FLOM0.4C39 PO; +FLUC100T3 PO; +INSUHUMDS SC; +IPRA0.00 NEB; +METO1TAB32 PO; +NICO14PA TD; +OXYC-517 PO; +POTA-150 PO; -POTA10TA17 PO; +RAME8TAB2 PO; +SENN-52 PO; +SUCR1ORA PO
[2022-06-11 18:33] LABS: BASO % 0.2 % (0.0-1.0); EOS % 0.2 % (0.0-3.0); HEMATOCRIT 33.1 % (42.0-52.0); HEMOGLOBIN 10.2 g/dl (13.5-17.5); LYMPH # 1.4 10^3/uL (1.5-5.0); LYMPH % 7.5 % (24.0-44.0); MEAN CORPUSCULAR HEMOGLOBIN 30.4 pg (27.0-33.0); MEAN CORPUSCULAR HGB CONC 30.8 g/dl (32.0-36.5); MEAN CORPUSCULAR VOLUME 98.8 fl (80.0-96.0); MONO # 1.4 10^3/uL (0.0-0.8); MONO % 7.8 % (2.0-8.0); NEUTROPHILS # 15.5 10^3/uL (1.5-8.5); NEUTROPHILS % 83.8 % (36.0-66.0); PLATELET COUNT, AUTOMATED 356 10^3/uL (150-450); RED BLOOD COUNT 3.35 10^6/uL (4.30-6.10); WHITE BLOOD COUNT 18.5 10^3/uL (4.0-10.0)
[2022-06-11 19:28] LABS: ALBUMIN 2.6 GM/DL (3.2-5.2); ALT/SGPT 14 U/L (12-78); BILIRUBIN,TOTAL 0.8 MG/DL (0.2-1.0); BLOOD UREA NITROGEN 21 MG/DL (7-18); CALCIUM LEVEL 8.8 MG/DL (8.8-10.2); CARBON DIOXIDE LEVEL 28 MEQ/L (21-32); CHLORIDE LEVEL 96 MEQ/L (98-107); CREATININE FOR GFR 1.17 MG/DL (0.70-1.30); GLOMERULAR FILTRATION RATE > 60.0 (>49); GLUCOSE, FASTING 102 MG/DL (70-100); NT-PRO BNP 2744 PG/ML (<125); POTASSIUM SERUM 4.2 MEQ/L (3.5-5.1); SODIUM LEVEL 133 MEQ/L (136-145); TOTAL PROTEIN 6.4 GM/DL (6.4-8.2)
[2022-06-11 20:31] LABS: APPEARANCE, URINE MANUAL CLEAR (CLEAR); COLOR, URINE MANUAL DK YELLOW (YELLOW)
[2022-06-11 20:32] LABS: BILIRUBIN, URINE MANUAL NEGATIVE (NEGATIVE); BLOOD URINE MANUAL POSITIVE (NEGATIVE); GLUCOSE, URINE (UA) MANUAL NEGATIVE (NEGATIVE); KETONE, URINE MANUAL NEGATIVE (NEGATIVE); LEUKOCYTE ESTERASE, URINE MAN POSITIVE (NEGATIVE); NITRITE, URINE MANUAL NEGATIVE (NEGATIVE); PROTEIN, URINE MANUAL 1+ mg/dL (NEGATIVE); SPECIFIC GRAVITY,URINE MANUAL 1.015 (1.002-1.035); UROBILINOGEN, URINE MANUAL 1 MG mg/dl (NORMAL)
[2022-06-11 21:17] LABS: BACTERIA, URINE SMALL AMOUNT; MUCUS, URINE MOD AMOUNT (NEGATIVE); RBC, URINE 0-1 /hpf (0-3); SQUAMOUS EPITHELIAL CELL URINE SMALL AMOUNT /hpf (SMALL AMT); TRANSITIONAL EPI CELLS, URINE SMALL AMOUNT /hpf
== END ==
LOC: M SFHCCAPE 13:32
PROVIDERS: ATTEND Physician Assistant
DX: I50.33 Acute on chronic diastolic (congestive) heart failure (principal)

== ENCOUNTER → 2022-06-11 | Outpatient (REF) | payer MEDICARE ==
[~2022-06-11] MED LIST changes: -CYCL5TAB; -ELIQ2.5T PO
[2022-06-11 19:52] LABS: BLOOD UREA NITROGEN 22 MG/DL (7-18); CALCIUM LEVEL 8.5 MG/DL (8.8-10.2); CARBON DIOXIDE LEVEL 30 MEQ/L (21-32); CHLORIDE LEVEL 98 MEQ/L (98-107); CREATININE FOR GFR 1.18 MG/DL (0.70-1.30); GLOMERULAR FILTRATION RATE > 60.0 (>49); GLUCOSE, FASTING 99 MG/DL (70-100); POTASSIUM SERUM 4.3 MEQ/L (3.5-5.1); SODIUM LEVEL 135 MEQ/L (136-145)
[2022-06-11 21:27] LABS: BASO % 0.2 % (0.0-1.0); EOS % 0.2 % (0.0-3.0); HEMATOCRIT 33.1 % (42.0-52.0); HEMOGLOBIN 10.2 g/dl (13.5-17.5); LYMPH # 1.4 10^3/uL (1.5-5.0); LYMPH % 7.5 % (24.0-44.0); MEAN CORPUSCULAR HEMOGLOBIN 30.4 pg (27.0-33.0); MEAN CORPUSCULAR HGB CONC 30.8 g/dl (32.0-36.5); MEAN CORPUSCULAR VOLUME 98.8 fl (80.0-96.0); MONO # 1.4 10^3/uL (0.0-0.8); MONO % 7.8 % (2.0-8.0); NEUTROPHILS # 15.5 10^3/uL (1.5-8.5); NEUTROPHILS % 83.8 % (36.0-66.0); PLATELET COUNT, AUTOMATED 356 10^3/uL (150-450); RED BLOOD COUNT 3.35 10^6/uL (4.30-6.10); WHITE BLOOD COUNT 18.5 10^3/uL (4.0-10.0)
[2022-06-11 21:52] LABS: ERYTHROCYTE SEDIMENTATION RATE 96 mm/hr (0-20)
== END ==
LOC: M LAB REF 18:49
PROVIDERS: ATTEND Internal Medicine Infectious Disease
DX: Z51.81 Encounter for therapeutic drug level monitoring (principal); B95.62 Methicillin resistant Staphylococcus aureus infection as the cause of diseases classified elsewhere

== ENCOUNTER 2022-06-13 10:54 | Emergency (ER) | payer MEDICARE ==
[~2022-06-13] VITALS: Ht 177.8 cm; Wt 140.9 kg
[2022-06-13] MEDS ORDERED: PIPERACILLIN/TAZOBACTAM SOD 4.5 GM in D5W MINI-BAG PLUS 50 ML IV ONE ×2 (11:25→16:15)
[2022-06-13] MEDS ORDERED: NS IV ONE (11:25)
[2022-06-13] MEDS ORDERED: IPRATROPIUM 0.5MG/ALBUTEROL 2.5MG INH SOL UD 3ML (DUONEB) NEB ONE (11:25)
[2022-06-13] MEDS ORDERED: ELIQ2.5T PO (11:33)
[2022-06-13] MEDS ORDERED: CYCL5TAB (11:33)
[2022-06-13] MEDS ORDERED: VANCOMYCIN HCL 2,000 MG in D5W 500 ML IV ONE (11:40)
[2022-06-13] MEDS ORDERED: VANCOMYCIN HCL 1,000 MG, VIAL MATE ADAPTER 1 EACH in NS 250 ML IV ONE ×2 (12:00→13:00)
[2022-06-13] MEDS ORDERED: ISOVUE-370 76% 100ML VIAL As Ordered ONE (12:04)
[2022-06-13 12:12] LABS: BASO % 0.2 % (0.0-1.0); EOS # 0.1 10^3/uL (0.0-0.5); EOS % 0.3 % (0.0-3.0); HEMATOCRIT 31.5 % (42.0-52.0); HEMOGLOBIN 9.7 g/dl (13.5-17.5); LYMPH # 0.9 10^3/uL (1.5-5.0); LYMPH % 4.7 % (24.0-44.0); MEAN CORPUSCULAR HEMOGLOBIN 29.8 pg (27.0-33.0); MEAN CORPUSCULAR HGB CONC 30.8 g/dl (32.0-36.5); MEAN CORPUSCULAR VOLUME 96.6 fl (80.0-96.0); MONO % 8.7 % (2.0-8.0); NEUTROPHILS # 16.7 10^3/uL (1.5-8.5); PLATELET COUNT, AUTOMATED 371 10^3/uL (150-450); RED BLOOD COUNT 3.26 10^6/uL (4.30-6.10); WHITE BLOOD COUNT 19.6 10^3/uL (4.0-10.0)
[2022-06-13 12:30] LABS: INR 1.17; PROTHROMBIN TIME 15.4 SECONDS (12.7-14.5)
[2022-06-13 12:48] LABS: CK-MB VALUE MASS < 1.0 NG/ML (<3.6); CPK CREATINE PHOSPHOKINASE 92 U/L (39-308); MB/CK RELATIVE INDEX 1.09 (< OR =4)
[2022-06-13 12:49] LABS: CK-MB VALUE MASS < 1.0 NG/ML (<3.6); CPK CREATINE PHOSPHOKINASE 92 U/L (39-308); MB/CK RELATIVE INDEX 1.09 (< OR =4)
[2022-06-13 12:50] LABS: MONO # 1.7 10^3/uL (0.0-0.8)
[2022-06-13 12:55] LABS: RSV AMPLIFICATION NEGATIVE (NEGATIVE)
[2022-06-13 12:58] LABS: ALBUMIN 2.4 GM/DL (3.2-5.2); ALT/SGPT 16 U/L (12-78); AMYLASE 22 U/L (25-115); BILIRUBIN,DIRECT 0.4 MG/DL (0.0-0.2); BILIRUBIN,TOTAL 0.7 MG/DL (0.2-1.0); BLOOD UREA NITROGEN 32 MG/DL (7-18); CALCIUM LEVEL 8.5 MG/DL (8.8-10.2); CARBON DIOXIDE LEVEL 29 MEQ/L (21-32); CHLORIDE LEVEL 99 MEQ/L (98-107); CREATININE FOR GFR 1.28 MG/DL (0.70-1.30); GLOMERULAR FILTRATION RATE > 60.0 (>49); GLUCOSE, FASTING 100 MG/DL (70-100); POTASSIUM SERUM 4.3 MEQ/L (3.5-5.1); SODIUM LEVEL 134 MEQ/L (136-145); TOTAL PROTEIN 6.3 GM/DL (6.4-8.2)
[2022-06-13] MEDS ORDERED: LIDOCAINE 2% 5ML JELLY UROJET TOP ONE (14:35)
[2022-06-13] MEDS ORDERED: MIDODRINE 5 MG TAB PO SCH (16:00)
[2022-06-13 16:25] LABS: APPEARANCE, URINE MANUAL CLEAR (CLEAR); COLOR, URINE MANUAL YELLOW (YELLOW)
[2022-06-13 16:27] LABS: BILIRUBIN, URINE MANUAL NEGATIVE (NEGATIVE); BLOOD URINE MANUAL TRACE (NEGATIVE); GLUCOSE, URINE (UA) MANUAL NEGATIVE (NEGATIVE); KETONE, URINE MANUAL NEGATIVE (NEGATIVE); LEUKOCYTE ESTERASE, URINE MAN NEGATIVE (NEGATIVE); NITRITE, URINE MANUAL NEGATIVE (NEGATIVE); PROTEIN, URINE MANUAL 1+ mg/dL (NEGATIVE); UROBILINOGEN, URINE MANUAL NORMAL (NORMAL)
[2022-06-13 16:37] LABS: BACTERIA, URINE NONE SEEN; MUCUS, URINE SMALL AMOUNT (NEGATIVE); SQUAMOUS EPITHELIAL CELL URINE SMALL AMOUNT /hpf (SMALL AMT); WBC, URINE NONE SEEN /hpf (0-3)
[2022-06-13] MEDS ORDERED: INSULIN LISPRO (NovoLOG) PER UNIT SC SCH ×2 (17:30→21:00)
[2022-06-13] MEDS ORDERED: GLUCAGON INJ 1MG VIAL SC PRN (18:30)
[2022-06-13] MEDS ORDERED: GLUCOSE 4GM CHEW TABLET PO PRN (18:30)
[2022-06-13] MEDS ORDERED: DEXTROSE 50% 50 ML SYRINGE IV PRN (18:30)
[2022-06-13] MEDS ORDERED: methylPREDNISolone 125MG 2ML VIAL IV ONE (18:55)
[2022-06-13 20:11] VITALS: BP 120/65
== END 2022-06-13 20:15 | disposition short-term general hospital (02) ==
LOC: M ED 10:54 → EDBD 10:54 → M ED 20:15
DX: A41.9 Sepsis, unspecified organism (principal); M46.26 Osteomyelitis of vertebra, lumbar region; M46.47 Discitis, unspecified, lumbosacral region; I44.0 Atrioventricular block, first degree; I45.10 Unspecified right bundle-branch block; E11.9 Type 2 diabetes mellitus without complications; I10 Essential (primary) hypertension; N17.9 Acute kidney failure, unspecified; F17.200 Nicotine dependence, unspecified, uncomplicated; Z86.79 Personal history of other diseases of the circulatory system; Z95.5 Presence of coronary angioplasty implant and graft; Z79.01 Long term (current) use of anticoagulants; Z79.51 Long term (current) use of inhaled steroids; Z79.4 Long term (current) use of insulin; Z79.899 Other long term (current) drug therapy
CPT/HCPCS: 36600; 71045; 74177; 80047; 80048; 80076; 81000; 82150; 82550; 82553; 82803; 83605; 84484; 85025; 85610; 85730; 86140; 86850; 86900; 86901; 87040; 87077; 87086; 87186; 87631; 93005; 93041; 94640; 94660; 94760; 96365; 96366; 96375; 99285; J2543; J2930; J3370; Q9967

== ENCOUNTER 2022-11-11 10:53 | Inpatient (IN) | payer MEDICARE, MEDICAID ==
[~2022-11-11] VITALS: Ht 172.7 cm; Wt 128.5 kg
[2022-11-11] VITALS (19 sets, daily range): BP systolic 89–128; BP diastolic 46–67
[~2022-11-11 10:53] MED LIST changes: +CLOP75TA99 PO; +CYCL5TAB; +ELIQ2.5T PO; -PLAV1TAB2 PO
[2022-11-11] MEDS: COMBIVENT RESPIMAT 100-20MCG INHALER 4GM INH SCH ×2 (11:47→12:00)
[2022-11-11 12:12] LABS: BASO # 0.1 10^3/uL (0.0-0.2); BASO % 0.9 % (0.0-1.0); EOS # 0.2 10^3/uL (0.0-0.5); HEMATOCRIT 46.2 % (42.0-52.0); HEMOGLOBIN 12.2 g/dl (13.5-17.5); LYMPH # 1.1 10^3/uL (1.5-5.0); LYMPH % 12.3 % (24.0-44.0); MEAN CORPUSCULAR HEMOGLOBIN 24.5 pg (27.0-33.0); MEAN CORPUSCULAR HGB CONC 26.4 g/dl (32.0-36.5); MONO # 0.9 10^3/uL (0.0-0.8); MONO % 10.6 % (2.0-8.0); NEUTROPHILS # 6.3 10^3/uL (1.5-8.5); NEUTROPHILS % 73.7 % (36.0-66.0); PLATELET COUNT, AUTOMATED 281 10^3/uL (150-450); RED BLOOD COUNT 4.97 10^6/uL (4.30-6.10); WHITE BLOOD COUNT 8.5 10^3/uL (4.0-10.0)
[2022-11-11] MEDS ORDERED: NS 500 ML IV ONE (12:15)
[2022-11-11] MEDS ORDERED: NOREPINEPHRINE 4MG IN D5 250ML 4 MG in IV 1 EA IV SCH ×4 (12:15→17:25)
[2022-11-11] MEDS ORDERED: PIPERACILLIN/TAZOBACTAM SOD 4.5 GM in D5W MINI-BAG PLUS 50 ML IV ONE (12:15)
[2022-11-11] MEDS ORDERED: LIDOCAINE 2% 5ML JELLY UROJET TOP ONE (12:20)
[2022-11-11 12:30] LABS: INR 1.01; PROTHROMBIN TIME 13.5 SECONDS (12.5-14.5)
[2022-11-11 12:31] LABS: PARTIAL THROMBOPLASTIN TIME 30.6 SECONDS (24.8-34.2)
[2022-11-11 12:45] LABS: C REACTIVE PROTEIN QUANTITATIV 3.1 MG/DL (<1.0); MAGNESIUM LEVEL 2.2 MG/DL (1.8-2.4)
[2022-11-11 12:47] LABS: BILIRUBIN,TOTAL 0.5 MG/DL (0.3-1.2); CALCIUM LEVEL 7.9 MG/DL (8.3-10.6); CK-MB VALUE MASS 2.8 NG/ML (<3.6); CREATININE FOR GFR 1.93 MG/DL (0.70-1.30); GLOMERULAR FILTRATION RATE 37.7 (>49); POTASSIUM SERUM 4.9 MMOL/L (3.5-5.1); TOTAL PROTEIN 6.5 G/DL (5.7-8.2)
[2022-11-11 12:49] LABS: FERRITIN 20.2 NG/ML (10.5-307.3)
[2022-11-11] MEDS ORDERED: NS 250 ML IV ONE (12:50)
[2022-11-11 13:07] LABS: MB/CK RELATIVE INDEX 4.24 (< OR =4)
[2022-11-11] MEDS ORDERED: ASPIRIN 81MG CHEW TABLET PO ONE (13:10)
[2022-11-11 13:39] LABS: ABG BASE EXCESS -0.6 (-2.0-2.0); ABG HCO3 29.3 MEQ/L (22.0-26.0); ABG O2 SATURATION 92.5 % (95.0-99.0); ABG PARTIAL PRESSURE O2 73.7 mmHg (75.0-100.0); ABG STANDARD HCO3 23.9 MEQ/L (22.0-26.0); ABG TOTAL CO2 31.5 MEQ/L (23.0-31.0)
[2022-11-11 13:48] LABS: CK-MB VALUE MASS 3.1 NG/ML (<3.6)
[2022-11-11 13:48] LABS: ABG PARTIAL PRESSURE CO2 74.5 mmHg (35.0-45.0); ABG pH (ARTERIAL) 7.212 UNITS (7.350-7.450)
[2022-11-11] MEDS ORDERED: NS 3,120 ML in IV 1 EA IV ONE (13:50)
[2022-11-11 13:51] LABS: MB/CK RELATIVE INDEX 4.84 (< OR =4)
[2022-11-11 15:34] LABS: CK-MB VALUE MASS 3.2 NG/ML (<3.6)
[2022-11-11 15:35] LABS: MB/CK RELATIVE INDEX 4.77 (< OR =4)
[2022-11-11 15:50] LABS: ABG BASE EXCESS 1.8 (-2.0-2.0); ABG HCO3 32.5 MEQ/L (22.0-26.0); ABG O2 SATURATION 88.3 % (95.0-99.0); ABG PARTIAL PRESSURE CO2 85.5 mmHg (35.0-45.0); ABG PARTIAL PRESSURE O2 63.4 mmHg (75.0-100.0); ABG STANDARD HCO3 25.8 MEQ/L (22.0-26.0); ABG TOTAL CO2 35.1 MEQ/L (23.0-31.0); ABG pH (ARTERIAL) 7.198 UNITS (7.350-7.450)
[2022-11-11] MEDS ORDERED: VANCOMYCIN HCL 2,000 MG in D5W 500 ML IV ONE (16:10)
[2022-11-11] MEDS ORDERED: VANCOMYCIN HCL 1,000 MG, VIAL MATE ADAPTER 1 EACH in NS 250 ML IV ONE ×2 (16:30→17:30)
[2022-11-11] MEDS ORDERED: TAMS1CAP17 PO (17:13)
[2022-11-11] MEDS ORDERED: DOXY100T PO (17:13)
[2022-11-11] MEDS ORDERED: ECOT81TA5 PO (17:17)
[2022-11-11] MEDS ORDERED: METF500T13 PO (17:17)
[2022-11-11] MEDS ORDERED: TRAM50TA2 PO (17:17)
[2022-11-11] MEDS ORDERED: ATOR80TA59 PO (17:24)
[2022-11-11] MEDS ORDERED: LISI20TA33 PO (17:24)
[2022-11-11] MEDS ORDERED: VANCOMYCIN HCL 1,000 MG, VIAL MATE ADAPTER 1 EACH in NS 250 ML IV SCH (17:25)
[2022-11-11] MEDS ORDERED: HOME MED LIST COMPLETE! XX SCH (17:25)
[2022-11-11 17:43] LABS: ABG BASE EXCESS -1.6 (-2.0-2.0); ABG HCO3 28.2 MEQ/L (22.0-26.0); ABG O2 SATURATION 92.3 % (95.0-99.0); ABG PARTIAL PRESSURE O2 70.5 mmHg (75.0-100.0); ABG TOTAL CO2 30.4 MEQ/L (23.0-31.0)
[2022-11-11 17:44] LABS: ABG PARTIAL PRESSURE CO2 72.9 mmHg (35.0-45.0); ABG pH (ARTERIAL) 7.205 UNITS (7.350-7.450)
[2022-11-11] MEDS: IPRATROPIUM 0.5MG/ALBUTEROL 2.5MG INH SOL UD 3ML (DUONEB) NEB SCH (19:18)
[2022-11-11] MEDS: PIPERACILLIN/TAZOBACTAM SOD 3.375 GM in D5W MINI-BAG PLUS 50 ML IV SCH (20:33)
[2022-11-11] MEDS: methylPREDNISolone 125MG 2ML VIAL IV SCH (20:33)
[2022-11-11 21:33] LABS: ABG BASE EXCESS -2.7 (-2.0-2.0); ABG O2 SATURATION 91.8 % (95.0-99.0); ABG PARTIAL PRESSURE O2 70.2 mmHg (75.0-100.0); ABG STANDARD HCO3 22.1 MEQ/L (22.0-26.0); ABG TOTAL CO2 30.5 MEQ/L (23.0-31.0)
[2022-11-11 21:34] LABS: ABG PARTIAL PRESSURE CO2 80.7 mmHg (35.0-45.0); ABG pH (ARTERIAL) 7.158 UNITS (7.350-7.450)
[2022-11-11] MEDS: HEPARIN SOD (PORCINE) 5000UNITS/ML 1ML VIAL/SYRINGE SC SCH (22:07)
[2022-11-11 23:41] LABS: ABG BASE EXCESS -1.9 (-2.0-2.0); ABG HCO3 28.4 MEQ/L (22.0-26.0); ABG O2 SATURATION 99.5 % (95.0-99.0); ABG PARTIAL PRESSURE CO2 78.3 mmHg (35.0-45.0); ABG PARTIAL PRESSURE O2 184.7 mmHg (75.0-100.0); ABG STANDARD HCO3 22.9 MEQ/L (22.0-26.0); ABG TOTAL CO2 30.8 MEQ/L (23.0-31.0); ABG pH (ARTERIAL) 7.178 UNITS (7.350-7.450)
[2022-11-12] VITALS (112 sets, daily range): BP systolic 78–136; BP diastolic 42–86
[2022-11-12] MEDS ORDERED: FENTANYL DRIP LOCK BOX KEY 1 EACH XX PRN (00:05)
[2022-11-12] MEDS: MIDAZOLAM 100MG/100ML-0.9%NACL 100 MG in IV 1 EA IV SCH ×2 (00:33→15:33)
[2022-11-12] MEDS ORDERED: ETOMIDATE INJ 20MG/10ML VIAL IV STA (01:04)
[2022-11-12] MEDS ORDERED: ROCURONIUM BROMIDE 50MG/5ML VIAL IV ONE (01:05)
[2022-11-12] MEDS: fentaNYL CITRATE/NaCl 1,000 MCG in IV 1 EA IV SCH ×2 (01:11→20:29)
[2022-11-12] MEDS: MIDAZOLAM INJ 2MG/2ML VIAL IV PRN ×3 (01:16→08:07)
[2022-11-12] MEDS: methylPREDNISolone 125MG 2ML VIAL IV SCH ×3 (02:13→14:42)
[2022-11-12] MEDS: PIPERACILLIN/TAZOBACTAM SOD 3.375 GM in D5W MINI-BAG PLUS 50 ML IV SCH ×4 (02:13→20:03)
[2022-11-12 02:50] LABS: ABG BASE EXCESS 4.7 (-2.0-2.0); ABG HCO3 31.4 MEQ/L (22.0-26.0); ABG O2 SATURATION 92.7 % (95.0-99.0); ABG PARTIAL PRESSURE CO2 55.1 mmHg (35.0-45.0); ABG PARTIAL PRESSURE O2 60.5 mmHg (75.0-100.0); ABG STANDARD HCO3 28.6 MEQ/L (22.0-26.0); ABG pH (ARTERIAL) 7.373 UNITS (7.350-7.450)
[2022-11-12 04:49] LABS: BASO % 0.2 % (0.0-1.0); HEMATOCRIT 43.2 % (42.0-52.0); HEMOGLOBIN 11.8 g/dl (13.5-17.5); LYMPH # 0.5 10^3/uL (1.5-5.0); LYMPH % 10.3 % (24.0-44.0); MEAN CORPUSCULAR HEMOGLOBIN 24.7 pg (27.0-33.0); MEAN CORPUSCULAR HGB CONC 27.3 g/dl (32.0-36.5); MEAN CORPUSCULAR VOLUME 90.4 fl (80.0-96.0); MONO # 0.2 10^3/uL (0.0-0.8); MONO % 4.2 % (2.0-8.0); NEUTROPHILS # 4.4 10^3/uL (1.5-8.5); NEUTROPHILS % 84.9 % (36.0-66.0); PLATELET COUNT, AUTOMATED 273 10^3/uL (150-450); RED BLOOD COUNT 4.78 10^6/uL (4.30-6.10); WHITE BLOOD COUNT 5.2 10^3/uL (4.0-10.0)
[2022-11-12 05:08] LABS: ALBUMIN 2.5 G/DL (3.2-5.2); ALKALINE PHOSPHATASE 68 U/L (46-116); ALT/SGPT < 9 U/L (7.0-40); AST/SGOT 16 U/L (<34); BILIRUBIN,TOTAL 0.8 MG/DL (0.3-1.2); BLOOD UREA NITROGEN 38 MG/DL (9-23); CALCIUM LEVEL 7.8 MG/DL (8.3-10.6); CARBON DIOXIDE LEVEL 30 MMOL/L (20-31); CHLORIDE LEVEL 103 MMOL/L (98-107); CREATININE FOR GFR 1.81 MG/DL (0.70-1.30); GLOMERULAR FILTRATION RATE 40.6 (>49); GLUCOSE, FASTING 103 MG/DL (74-106); POTASSIUM SERUM 5.2 MMOL/L (3.5-5.1); SODIUM LEVEL 141 MMOL/L (136-145); TOTAL PROTEIN 5.5 G/DL (5.7-8.2)
[2022-11-12 05:50] LABS: ABG BASE EXCESS 3.1 (-2.0-2.0); ABG HCO3 27.6 MEQ/L (22.0-26.0); ABG O2 SATURATION 89.9 % (95.0-99.0); ABG PARTIAL PRESSURE CO2 41.5 mmHg (35.0-45.0); ABG PARTIAL PRESSURE O2 51.6 mmHg (75.0-100.0); ABG STANDARD HCO3 27.1 MEQ/L (22.0-26.0); ABG TOTAL CO2 28.8 MEQ/L (23.0-31.0)
[2022-11-12] MEDS: HEPARIN SOD (PORCINE) 5000UNITS/ML 1ML VIAL/SYRINGE SC SCH ×3 (06:27→21:25)
[2022-11-12] MEDS: IPRATROPIUM 0.5MG/ALBUTEROL 2.5MG INH SOL UD 3ML (DUONEB) NEB SCH ×4 (07:33→19:23)
[2022-11-12] MEDS: VANCOMYCIN HCL 1,000 MG, VIAL MATE ADAPTER 1 EACH in D5W 250 ML IV SCH ×2 (09:02→21:24)
[2022-11-12] MEDS: ASPIRIN 81MG CHEW TABLET PO SCH (09:02)
[2022-11-12] MEDS: PANTOPRAZOLE 40MG VIAL IV SCH (09:02)
[2022-11-12] MEDS ORDERED: MIDAZOLAM 5MG/ML 1ML VIAL IV ONE (09:55)
[2022-11-12] MEDS ORDERED: MIDAZOLAM INJ 2MG/2ML VIAL IV ONE (09:55)
[2022-11-12] MEDS: CHLORHEXIDINE GLUCONATE 0.12 % 15ML UDC (PERIDEX ORAL RINSE) MT SCH ×2 (10:46→21:24)
[2022-11-12] MEDS ORDERED: VANCOMYCIN HCL 750 MG, VIAL MATE ADAPTER 1 EACH in D5W 250 ML IV SCH ×2 (12:00→13:00)
[2022-11-12] MEDS: FUROSEMIDE injection 250 MG in D5W 225 ML IV SCH (14:42)
[2022-11-12 17:53] LABS: ABG BASE EXCESS 3.9 (-2.0-2.0); ABG O2 SATURATION 93.9 % (95.0-99.0); ABG PARTIAL PRESSURE CO2 45.3 mmHg (35.0-45.0); ABG PARTIAL PRESSURE O2 71.6 mmHg (75.0-100.0); ABG STANDARD HCO3 27.9 MEQ/L (22.0-26.0); ABG TOTAL CO2 30.4 MEQ/L (23.0-31.0); ABG pH (ARTERIAL) 7.424 UNITS (7.350-7.450)
[2022-11-12 18:04] LABS: MAGNESIUM LEVEL 1.9 MG/DL (1.8-2.4)
[2022-11-12 18:08] LABS: ALBUMIN 2.8 G/DL (3.2-5.2); ALKALINE PHOSPHATASE 65 U/L (46-116); ALT/SGPT < 9 U/L (7.0-40); AST/SGOT 15 U/L (<34); BILIRUBIN,TOTAL 0.8 MG/DL (0.3-1.2); BLOOD UREA NITROGEN 38 MG/DL (9-23); CALCIUM LEVEL 8.2 MG/DL (8.3-10.6); CARBON DIOXIDE LEVEL 31 MMOL/L (20-31); CHLORIDE LEVEL 105 MMOL/L (98-107); CREATININE FOR GFR 1.63 MG/DL (0.70-1.30); GLOMERULAR FILTRATION RATE 45.9 (>49); GLUCOSE, FASTING 148 MG/DL (74-106); POTASSIUM SERUM 4.4 MMOL/L (3.5-5.1); SODIUM LEVEL 142 MMOL/L (136-145); TOTAL PROTEIN 5.8 G/DL (5.7-8.2)
[2022-11-12] MEDS: NYSTATIN 100,000 UNITS/GM TOPICAL PWD 15GM TOP SCH (21:24)
[2022-11-12 21:51] LABS: MAGNESIUM LEVEL 1.9 MG/DL (1.8-2.4)
[2022-11-12 21:53] LABS: CREATININE FOR GFR 1.61 MG/DL (0.70-1.30); GLOMERULAR FILTRATION RATE 46.5 (>49); POTASSIUM SERUM 4.2 MMOL/L (3.5-5.1)
[2022-11-12 21:56] LABS: FREE T4 0.8 NG/DL (0.89-1.76); THYROID STIMULATING HORMONE 1.134 uIU/ML (0.55-4.78)
[2022-11-13] VITALS (54 sets, daily range): BP systolic 80–116; BP diastolic 43–83
[2022-11-13] MEDS: PIPERACILLIN/TAZOBACTAM SOD 3.375 GM in D5W MINI-BAG PLUS 50 ML IV SCH ×4 (02:05→20:12)
[2022-11-13] MEDS: MIDAZOLAM INJ 2MG/2ML VIAL IV PRN ×6 (04:12→20:12)
[2022-11-13] MEDS: HEPARIN SOD (PORCINE) 5000UNITS/ML 1ML VIAL/SYRINGE SC SCH ×3 (05:36→22:03)
[2022-11-13 05:41] LABS: BASO % 0.1 % (0.0-1.0); HEMATOCRIT 39.4 % (42.0-52.0); HEMOGLOBIN 11.6 g/dl (13.5-17.5); LYMPH # 0.9 10^3/uL (1.5-5.0); LYMPH % 10.9 % (24.0-44.0); MEAN CORPUSCULAR HEMOGLOBIN 24.9 pg (27.0-33.0); MEAN CORPUSCULAR HGB CONC 29.4 g/dl (32.0-36.5); MEAN CORPUSCULAR VOLUME 84.5 fl (80.0-96.0); MONO # 0.7 10^3/uL (0.0-0.8); MONO % 8.1 % (2.0-8.0); NEUTROPHILS # 6.9 10^3/uL (1.5-8.5); NEUTROPHILS % 80.4 % (36.0-66.0); PLATELET COUNT, AUTOMATED 277 10^3/uL (150-450); RED BLOOD COUNT 4.66 10^6/uL (4.30-6.10); WHITE BLOOD COUNT 8.6 10^3/uL (4.0-10.0)
[2022-11-13 06:10] LABS: MAGNESIUM LEVEL 1.8 MG/DL (1.8-2.4)
[2022-11-13 06:12] LABS: ALBUMIN 2.6 G/DL (3.2-5.2); ALKALINE PHOSPHATASE 59 U/L (46-116); ALT/SGPT < 9 U/L (7.0-40); AST/SGOT 14 U/L (<34); BILIRUBIN,TOTAL 0.7 MG/DL (0.3-1.2); BLOOD UREA NITROGEN 38 MG/DL (9-23); CALCIUM LEVEL 8.2 MG/DL (8.3-10.6); CARBON DIOXIDE LEVEL 35 MMOL/L (20-31); CHLORIDE LEVEL 104 MMOL/L (98-107); CREATININE FOR GFR 1.46 MG/DL (0.70-1.30); GLOMERULAR FILTRATION RATE 52.1 (>49); GLUCOSE, FASTING 116 MG/DL (74-106); POTASSIUM SERUM 3.9 MMOL/L (3.5-5.1); SODIUM LEVEL 143 MMOL/L (136-145); TOTAL PROTEIN 5.6 G/DL (5.7-8.2)
[2022-11-13 06:15] LABS: ABG BASE EXCESS 8.6 (-2.0-2.0); ABG HCO3 33.8 MEQ/L (22.0-26.0); ABG O2 SATURATION 96.7 % (95.0-99.0); ABG PARTIAL PRESSURE O2 86.9 mmHg (75.0-100.0); ABG STANDARD HCO3 32.4 MEQ/L (22.0-26.0); ABG TOTAL CO2 35.3 MEQ/L (23.0-31.0); ABG pH (ARTERIAL) 7.457 UNITS (7.350-7.450)
[2022-11-13] MEDS: IPRATROPIUM 0.5MG/ALBUTEROL 2.5MG INH SOL UD 3ML (DUONEB) NEB SCH ×4 (07:37→19:23)
[2022-11-13] MEDS: ASPIRIN 81MG CHEW TABLET PO SCH (08:25)
[2022-11-13] MEDS: CHLORHEXIDINE GLUCONATE 0.12 % 15ML UDC (PERIDEX ORAL RINSE) MT SCH ×2 (08:25→20:12)
[2022-11-13] MEDS: NYSTATIN 100,000 UNITS/GM TOPICAL PWD 15GM TOP SCH ×2 (08:26→20:13)
[2022-11-13] MEDS: PANTOPRAZOLE 40MG VIAL IV SCH (08:26)
[2022-11-13] MEDS: MIDAZOLAM 100MG/100ML-0.9%NACL 100 MG in IV 1 EA IV SCH (12:08)
[2022-11-13] MEDS: FUROSEMIDE injection 250 MG in D5W 225 ML IV SCH (13:13)
[2022-11-13] MEDS ORDERED: MIDAZOLAM 100MG/100ML-0.9%NACL 100 MG in IV 1 EA IV SCH (13:59)
[2022-11-13] MEDS: fentaNYL CITRATE/NaCl 1,000 MCG in IV 1 EA IV SCH (14:25)
[2022-11-13 17:19] LABS: MAGNESIUM LEVEL 1.8 MG/DL (1.8-2.4)
[2022-11-13 17:20] LABS: CALCIUM LEVEL 8.4 MG/DL (8.3-10.6); CREATININE FOR GFR 1.34 MG/DL (0.70-1.30); GLOMERULAR FILTRATION RATE 57.5 (>49)
[2022-11-13] MEDS: DOXYCYCLINE HYCLATE 100MG TABLET PO SCH (20:12)
[2022-11-13 22:10] LABS: CREATININE,RANDOM URINE < 13.0 MG/DL
[2022-11-13 22:45] LABS: TOTAL PROTEIN,RANDOM URINE < 6.0 MG/DL (0.0-14.0)
[2022-11-14] VITALS (29 sets, daily range): BP systolic 87–130; BP diastolic 50–91
[2022-11-14] MEDS: fentaNYL CITRATE/NaCl 1,000 MCG in IV 1 EA IV SCH (00:23)
[2022-11-14] MEDS: MIDAZOLAM 100MG/100ML-0.9%NACL 100 MG in IV 1 EA IV SCH (01:08)
[2022-11-14] MEDS: PIPERACILLIN/TAZOBACTAM SOD 3.375 GM in D5W MINI-BAG PLUS 50 ML IV SCH ×4 (01:44→20:12)
[2022-11-14] MEDS: MIDAZOLAM INJ 2MG/2ML VIAL IV PRN (03:05)
[2022-11-14 04:34] LABS: BASO % 0.4 % (0.0-1.0); EOS # 0.1 10^3/uL (0.0-0.5); EOS % 1.5 % (0.0-3.0); HEMATOCRIT 44.2 % (42.0-52.0); HEMOGLOBIN 12.5 g/dl (13.5-17.5); LYMPH # 1.5 10^3/uL (1.5-5.0); LYMPH % 16.1 % (24.0-44.0); MEAN CORPUSCULAR HEMOGLOBIN 24.6 pg (27.0-33.0); MEAN CORPUSCULAR HGB CONC 28.3 g/dl (32.0-36.5); MONO # 0.8 10^3/uL (0.0-0.8); MONO % 8.3 % (2.0-8.0); NEUTROPHILS # 6.9 10^3/uL (1.5-8.5); NEUTROPHILS % 73.4 % (36.0-66.0); PLATELET COUNT, AUTOMATED 288 10^3/uL (150-450); RED BLOOD COUNT 5.08 10^6/uL (4.30-6.10); WHITE BLOOD COUNT 9.4 10^3/uL (4.0-10.0)
[2022-11-14 05:06] LABS: MAGNESIUM LEVEL 1.7 MG/DL (1.8-2.4)
[2022-11-14 05:11] LABS: ALBUMIN 2.9 G/DL (3.2-5.2); ALKALINE PHOSPHATASE 61 U/L (46-116); ALT/SGPT 10 U/L (7.0-40); AST/SGOT 26 U/L (<34); BILIRUBIN,TOTAL 0.9 MG/DL (0.3-1.2); BLOOD UREA NITROGEN 40 MG/DL (9-23); CALCIUM LEVEL 8.2 MG/DL (8.3-10.6); CARBON DIOXIDE LEVEL > 40.0 MMOL/L (20-31); CHLORIDE LEVEL 96 MMOL/L (98-107); CREATININE FOR GFR 1.19 MG/DL (0.70-1.30); GLOMERULAR FILTRATION RATE > 60.0 (>49); GLUCOSE, FASTING 81 MG/DL (74-106); SODIUM LEVEL 142 MMOL/L (136-145); TOTAL PROTEIN 6.3 G/DL (5.7-8.2)
[2022-11-14] MEDS ORDERED: MAGNESIUM OXIDE 400MG TAB (MAG-OX) PO ONE (05:40)
[2022-11-14 05:52] LABS: ABG BASE EXCESS 11.6 (-2.0-2.0); ABG HCO3 39.1 MEQ/L (22.0-26.0); ABG O2 SATURATION 91.9 % (95.0-99.0); ABG STANDARD HCO3 35.3 MEQ/L (22.0-26.0); ABG pH (ARTERIAL) 7.402 UNITS (7.350-7.450)
[2022-11-14] MEDS: HEPARIN SOD (PORCINE) 5000UNITS/ML 1ML VIAL/SYRINGE SC SCH ×2 (05:53→14:54)
[2022-11-14 05:56] LABS: ABG PARTIAL PRESSURE CO2 64.2 mmHg (35.0-45.0)
[2022-11-14] MEDS: IPRATROPIUM 0.5MG/ALBUTEROL 2.5MG INH SOL UD 3ML (DUONEB) NEB SCH ×4 (07:26→19:26)
[2022-11-14] MEDS: CHLORHEXIDINE GLUCONATE 0.12 % 15ML UDC (PERIDEX ORAL RINSE) MT SCH (08:27)
[2022-11-14] MEDS: ASPIRIN 81MG CHEW TABLET PO SCH (08:27)
[2022-11-14] MEDS: PANTOPRAZOLE 40MG VIAL IV SCH (08:28)
[2022-11-14] MEDS: DOXYCYCLINE HYCLATE 100MG TABLET PO SCH ×2 (08:28→20:13)
[2022-11-14] MEDS: NYSTATIN 100,000 UNITS/GM TOPICAL PWD 15GM TOP SCH ×2 (08:28→20:13)
[2022-11-14] MEDS: METOPROLOL TART 12.5 MG PER 1/2 TAB PO SCH ×2 (08:47→20:13)
[2022-11-14 10:25] LABS: ABG HCO3 41.4 MEQ/L (22.0-26.0); ABG O2 SATURATION 91.4 % (95.0-99.0); ABG PARTIAL PRESSURE O2 65.7 mmHg (75.0-100.0); ABG STANDARD HCO3 36.7 MEQ/L (22.0-26.0); ABG TOTAL CO2 43.6 MEQ/L (23.0-31.0); ABG pH (ARTERIAL) 7.376 UNITS (7.350-7.450)
[2022-11-14 10:29] LABS: ABG PARTIAL PRESSURE CO2 72.3 mmHg (35.0-45.0)
[2022-11-14] MEDS: FUROSEMIDE injection 250 MG in D5W 225 ML IV SCH (12:06)
[2022-11-14 14:18] LABS: ABG BASE EXCESS 11.7 (-2.0-2.0); ABG HCO3 40.5 MEQ/L (22.0-26.0); ABG O2 SATURATION 93.9 % (95.0-99.0); ABG PARTIAL PRESSURE O2 75.2 mmHg (75.0-100.0); ABG STANDARD HCO3 35.4 MEQ/L (22.0-26.0); ABG TOTAL CO2 42.8 MEQ/L (23.0-31.0); ABG pH (ARTERIAL) 7.355 UNITS (7.350-7.450)
[2022-11-14 14:20] LABS: ABG PARTIAL PRESSURE CO2 74.2 mmHg (35.0-45.0)
[2022-11-14 16:47] LABS: MAGNESIUM LEVEL 1.5 MG/DL (1.8-2.4)
[2022-11-14 16:49] LABS: BLOOD UREA NITROGEN 34 MG/DL (9-23); CALCIUM LEVEL 8.6 MG/DL (8.3-10.6); CARBON DIOXIDE LEVEL > 40.0 MMOL/L (20-31); CHLORIDE LEVEL 95 MMOL/L (98-107); GLOMERULAR FILTRATION RATE > 60.0 (>49); GLUCOSE, FASTING 96 MG/DL (74-106); POTASSIUM SERUM 4.2 MMOL/L (3.5-5.1); SODIUM LEVEL 143 MMOL/L (136-145)
[2022-11-14] MEDS ORDERED: MAG SULF 1GM/100ML (MAG RUN) 1 GM in IV 1 EA IV ONE (17:05)
[2022-11-14] MEDS: ENOXAPARIN 150MG/ML SYRINGE SC SCH (20:13)
[2022-11-15] VITALS (20 sets, daily range): BP systolic 107–144; BP diastolic 52–76; O2SAT 93–95
[2022-11-15] MEDS: PIPERACILLIN/TAZOBACTAM SOD 3.375 GM in D5W MINI-BAG PLUS 50 ML IV SCH ×4 (01:44→21:45)
[2022-11-15 04:53] LABS: HEMATOCRIT 44.1 % (42.0-52.0); HEMATOCRIT 44.3 % (42.0-52.0); HEMOGLOBIN 12.3 g/dl (13.5-17.5); HEMOGLOBIN 12.5 g/dl (13.5-17.5); LYMPH # 0.6 10^3/uL (1.5-5.0); LYMPH % 7.5 % (24.0-44.0); MEAN CORPUSCULAR HEMOGLOBIN 24.4 pg (27.0-33.0); MEAN CORPUSCULAR HEMOGLOBIN 24.7 pg (27.0-33.0); MEAN CORPUSCULAR HGB CONC 27.9 g/dl (32.0-36.5); MEAN CORPUSCULAR HGB CONC 28.2 g/dl (32.0-36.5); MEAN CORPUSCULAR VOLUME 87.3 fl (80.0-96.0); MEAN CORPUSCULAR VOLUME 87.4 fl (80.0-96.0); MONO # 0.4 10^3/uL (0.0-0.8); MONO % 5.2 % (2.0-8.0); NEUTROPHILS # 7.3 10^3/uL (1.5-8.5); NEUTROPHILS % 86.9 % (36.0-66.0); PLATELET COUNT, AUTOMATED 269 10^3/uL (150-450); PLATELET COUNT, AUTOMATED 276 10^3/uL (150-450); RED BLOOD COUNT 5.05 10^6/uL (4.30-6.10); RED BLOOD COUNT 5.07 10^6/uL (4.30-6.10); WHITE BLOOD COUNT 8.4 10^3/uL (4.0-10.0)
[2022-11-15 05:47] LABS: ALKALINE PHOSPHATASE 58 U/L (46-116); ALT/SGPT 14 U/L (7.0-40); AST/SGOT 49 U/L (<34); BILIRUBIN,TOTAL 0.9 MG/DL (0.3-1.2); BLOOD UREA NITROGEN 36 MG/DL (9-23); CALCIUM LEVEL 8.9 MG/DL (8.3-10.6); CARBON DIOXIDE LEVEL > 40.0 MMOL/L (20-31); CHLORIDE LEVEL 93 MMOL/L (98-107); CREATININE FOR GFR 1.08 MG/DL (0.70-1.30); GLOMERULAR FILTRATION RATE > 60.0 (>49); GLUCOSE, FASTING 83 MG/DL (74-106); POTASSIUM SERUM 4.9 MMOL/L (3.5-5.1); SODIUM LEVEL 141 MMOL/L (136-145); TOTAL PROTEIN 6.1 G/DL (5.7-8.2)
[2022-11-15] MEDS ORDERED: MAG SULF 1GM/100ML (MAG RUN) 1 GM in IV 1 EA IV ONE (06:25)
[2022-11-15] MEDS: IPRATROPIUM 0.5MG/ALBUTEROL 2.5MG INH SOL UD 3ML (DUONEB) NEB SCH ×4 (07:56→20:12)
[2022-11-15] MEDS: BUDESONIDE 0.5 MG/2 ML INHALATION SUSPENSION INH SCH ×2 (08:18→20:12)
[2022-11-15] MEDS: NYSTATIN 100,000 UNITS/GM TOPICAL PWD 15GM TOP SCH ×2 (08:34→21:17)
[2022-11-15] MEDS: ASPIRIN 81MG CHEW TABLET PO SCH (08:35)
[2022-11-15] MEDS: ENOXAPARIN 150MG/ML SYRINGE SC SCH ×2 (08:35→21:18)
[2022-11-15] MEDS: PANTOPRAZOLE 40MG TAB (PROTONIX) PO SCH (08:35)
[2022-11-15] MEDS: DOXYCYCLINE HYCLATE 100MG TABLET PO SCH ×2 (08:37→21:18)
[2022-11-15] MEDS: METOPROLOL TART 12.5 MG PER 1/2 TAB PO SCH ×2 (08:37→21:18)
[2022-11-15] MEDS: FUROSEMIDE injection 250 MG in D5W 225 ML IV SCH (12:01)
[2022-11-15 17:22] LABS: MAGNESIUM LEVEL 1.8 MG/DL (1.8-2.4)
[2022-11-15 17:26] LABS: BLOOD UREA NITROGEN 36 MG/DL (9-23); CALCIUM LEVEL 8.8 MG/DL (8.3-10.6); CARBON DIOXIDE LEVEL > 40.0 MMOL/L (20-31); CHLORIDE LEVEL 89 MMOL/L (98-107); CREATININE FOR GFR 1.16 MG/DL (0.70-1.30); GLOMERULAR FILTRATION RATE > 60.0 (>49); GLUCOSE, FASTING 99 MG/DL (74-106); POTASSIUM SERUM 4.1 MMOL/L (3.5-5.1); SODIUM LEVEL 142 MMOL/L (136-145)
[2022-11-15] MEDS ORDERED: NEOSPORIN OINT 0.9 GM PKT TOP ONE (17:30)
[2022-11-16] VITALS (10 sets, daily range): BP systolic 122–143; BP diastolic 55–75
[2022-11-16] MEDS: BUDESONIDE 0.5 MG/2 ML INHALATION SUSPENSION INH SCH ×2 (07:48→19:01)
[2022-11-16] MEDS: IPRATROPIUM 0.5MG/ALBUTEROL 2.5MG INH SOL UD 3ML (DUONEB) NEB SCH ×4 (07:48→19:00)
[2022-11-16] MEDS ORDERED: FUROSEMIDE 20MG/2ML VIAL IV ONE (08:30)
[2022-11-16] MEDS: ASPIRIN 81MG CHEW TABLET PO SCH (08:41)
[2022-11-16] MEDS: PANTOPRAZOLE 40MG TAB (PROTONIX) PO SCH (08:43)
[2022-11-16] MEDS: METOPROLOL TART 12.5 MG PER 1/2 TAB PO SCH ×2 (08:43→20:19)
[2022-11-16] MEDS: DOXYCYCLINE HYCLATE 100MG TABLET PO SCH ×2 (08:43→20:19)
[2022-11-16] MEDS: NYSTATIN 100,000 UNITS/GM TOPICAL PWD 15GM TOP SCH ×2 (08:43→20:19)
[2022-11-16 08:47] LABS: ABG BASE EXCESS 16.9 (-2.0-2.0); ABG HCO3 46.3 MEQ/L (22.0-26.0); ABG O2 SATURATION 94.3 % (95.0-99.0); ABG PARTIAL PRESSURE O2 75.3 mmHg (75.0-100.0); ABG STANDARD HCO3 40.8 MEQ/L (22.0-26.0); ABG TOTAL CO2 48.8 MEQ/L (23.0-31.0); ABG pH (ARTERIAL) 7.373 UNITS (7.350-7.450)
[2022-11-16 08:48] LABS: ABG PARTIAL PRESSURE CO2 81.4 mmHg (35.0-45.0)
[2022-11-16] MEDS: APIXABAN 5 MG TAB (ELIQUIS) PO SCH ×2 (09:01→20:19)
[2022-11-16 09:41] LABS: HEMATOCRIT 44.3 % (42.0-52.0); HEMOGLOBIN 12.2 g/dl (13.5-17.5); MEAN CORPUSCULAR HEMOGLOBIN 24.4 pg (27.0-33.0); MEAN CORPUSCULAR HGB CONC 27.5 g/dl (32.0-36.5); MEAN CORPUSCULAR VOLUME 88.8 fl (80.0-96.0); PLATELET COUNT, AUTOMATED 245 10^3/uL (150-450); RED BLOOD COUNT 4.99 10^6/uL (4.30-6.10); WHITE BLOOD COUNT 7.6 10^3/uL (4.0-10.0)
[2022-11-16 10:02] LABS: MAGNESIUM LEVEL 1.7 MG/DL (1.8-2.4)
[2022-11-16 10:14] LABS: BLOOD UREA NITROGEN 30 MG/DL (9-23); CALCIUM LEVEL 8.8 MG/DL (8.3-10.6); CARBON DIOXIDE LEVEL > 40.0 MMOL/L (20-31); CHLORIDE LEVEL 93 MMOL/L (98-107); GLOMERULAR FILTRATION RATE > 60.0 (>49); GLUCOSE, FASTING 130 MG/DL (74-106); SODIUM LEVEL 141 MMOL/L (136-145)
[2022-11-16] MEDS ORDERED: MAG SULF 1GM/100ML (MAG RUN) 1 GM in IV 1 EA IV ONE (11:00)
[2022-11-16] MEDS: FUROSEMIDE 40MG/4ML VIAL IV SCH (16:44)
[2022-11-16] MEDS: guaiFENesin ER 600 MG TAB PO SCH (21:55)
[2022-11-17] VITALS (9 sets, daily range): BP systolic 118–176; BP diastolic 62–70; O2SAT 93
[2022-11-17 07:07] LABS: HEMOGLOBIN 12.3 g/dl (13.5-17.5); MEAN CORPUSCULAR HEMOGLOBIN 24.6 pg (27.0-33.0); MEAN CORPUSCULAR VOLUME 88.2 fl (80.0-96.0); PLATELET COUNT, AUTOMATED 243 10^3/uL (150-450); RED BLOOD COUNT 4.99 10^6/uL (4.30-6.10); WHITE BLOOD COUNT 8.7 10^3/uL (4.0-10.0)
[2022-11-17 07:29] LABS: ALBUMIN 3.3 G/DL (3.2-5.2); ALKALINE PHOSPHATASE 56 U/L (46-116); ALT/SGPT 21 U/L (7.0-40); AST/SGOT 46 U/L (<34); BILIRUBIN,TOTAL 1.1 MG/DL (0.3-1.2); BLOOD UREA NITROGEN 24 MG/DL (9-23); CARBON DIOXIDE LEVEL > 40.0 MMOL/L (20-31); CHLORIDE LEVEL 92 MMOL/L (98-107); CREATININE FOR GFR 0.74 MG/DL (0.70-1.30); GLOMERULAR FILTRATION RATE > 60.0 (>49); GLUCOSE, FASTING 84 MG/DL (74-106); POTASSIUM SERUM 4.1 MMOL/L (3.5-5.1); SODIUM LEVEL 137 MMOL/L (136-145)
[2022-11-17] MEDS: FUROSEMIDE 40MG/4ML VIAL IV SCH ×2 (08:37→16:23)
[2022-11-17] MEDS: guaiFENesin ER 600 MG TAB PO SCH ×2 (08:37→20:31)
[2022-11-17] MEDS: APIXABAN 5 MG TAB (ELIQUIS) PO SCH ×2 (08:37→20:31)
[2022-11-17] MEDS: ASPIRIN 81MG CHEW TABLET PO SCH (08:37)
[2022-11-17] MEDS: DOXYCYCLINE HYCLATE 100MG TABLET PO SCH ×2 (08:37→20:31)
[2022-11-17] MEDS: PANTOPRAZOLE 40MG TAB (PROTONIX) PO SCH (08:37)
[2022-11-17] MEDS: METOPROLOL TART 12.5 MG PER 1/2 TAB PO SCH ×2 (08:39→20:30)
[2022-11-17] MEDS: NYSTATIN 100,000 UNITS/GM TOPICAL PWD 15GM TOP SCH ×2 (08:40→20:31)
[2022-11-17] MEDS: BUDESONIDE 0.5 MG/2 ML INHALATION SUSPENSION INH SCH (08:43)
[2022-11-17] MEDS: IPRATROPIUM 0.5MG/ALBUTEROL 2.5MG INH SOL UD 3ML (DUONEB) NEB SCH (08:43)
[2022-11-17] MEDS: ATORVASTATIN 20 MG TAB PO SCH (11:21)
[2022-11-17] MEDS: SYMBICORT 80/4.5MCG INHALER 6GM INH SCH ×2 (11:44→19:18)
[2022-11-17] MEDS: TIOTROPIUM INHALER/CAPSULE (SPIRIVA) INH SCH (11:44)
[2022-11-17] MEDS: ALBUTEROL SULFATE 2.5MG/0.5ML INH NEB SOLN NEB SCH ×2 (14:01→19:07)
[2022-11-17] MEDS: SODIUM CHLORIDE HYPERTONIC 3% 15ML NEB SOL INH SCH ×2 (14:02→19:07)
[2022-11-17] MEDS: TAMSULOSIN 0.4 MG CAP PO SCH (20:28)
[2022-11-18] VITALS: BP 137/72
[2022-11-18] MEDS: SODIUM CHLORIDE HYPERTONIC 3% 15ML NEB SOL INH SCH ×4 (01:24→19:06)
[2022-11-18] MEDS: ALBUTEROL SULFATE 2.5MG/0.5ML INH NEB SOLN NEB SCH ×4 (01:24→19:06)
[2022-11-18 08:57] VITALS: O2SAT 93
[2022-11-18] MEDS: SYMBICORT 80/4.5MCG INHALER 6GM INH SCH ×2 (08:57→19:07)
[2022-11-18] MEDS: TIOTROPIUM INHALER/CAPSULE (SPIRIVA) INH SCH (08:57)
[2022-11-18] MEDS: PANTOPRAZOLE 40MG TAB (PROTONIX) PO SCH (09:07)
[2022-11-18] MEDS: FUROSEMIDE 40MG/4ML VIAL IV SCH ×2 (09:07→17:23)
[2022-11-18] MEDS: guaiFENesin ER 600 MG TAB PO SCH ×2 (09:07→20:24)
[2022-11-18] MEDS: ASPIRIN 81MG CHEW TABLET PO SCH (09:07)
[2022-11-18] MEDS: ATORVASTATIN 20 MG TAB PO SCH (09:07)
[2022-11-18] MEDS: APIXABAN 5 MG TAB (ELIQUIS) PO SCH ×2 (09:07→20:24)
[2022-11-18] MEDS: DOXYCYCLINE HYCLATE 100MG TABLET PO SCH ×2 (09:07→20:24)
[2022-11-18 09:08] LABS: HEMATOCRIT 43.3 % (42.0-52.0); HEMOGLOBIN 12.1 g/dl (13.5-17.5); MEAN CORPUSCULAR HEMOGLOBIN 24.5 pg (27.0-33.0); MEAN CORPUSCULAR HGB CONC 27.9 g/dl (32.0-36.5); MEAN CORPUSCULAR VOLUME 87.8 fl (80.0-96.0); PLATELET COUNT, AUTOMATED 247 10^3/uL (150-450); RED BLOOD COUNT 4.93 10^6/uL (4.30-6.10); WHITE BLOOD COUNT 7.5 10^3/uL (4.0-10.0)
[2022-11-18 09:09] VITALS: BP 121/87
[2022-11-18] MEDS: METOPROLOL TART 12.5 MG PER 1/2 TAB PO SCH ×2 (09:09→20:24)
[2022-11-18] MEDS: NYSTATIN 100,000 UNITS/GM TOPICAL PWD 15GM TOP SCH ×2 (09:10→20:24)
[2022-11-18 09:45] LABS: MAGNESIUM LEVEL 1.7 MG/DL (1.8-2.4)
[2022-11-18 09:54] LABS: ALKALINE PHOSPHATASE 54 U/L (46-116); ALT/SGPT 20 U/L (7.0-40); AST/SGOT 38 U/L (<34); BILIRUBIN,TOTAL 0.9 MG/DL (0.3-1.2); BLOOD UREA NITROGEN 19 MG/DL (9-23); CALCIUM LEVEL 8.8 MG/DL (8.3-10.6); CARBON DIOXIDE LEVEL 38 MMOL/L (20-31); CHLORIDE LEVEL 97 MMOL/L (98-107); CREATININE FOR GFR 0.62 MG/DL (0.70-1.30); GLOMERULAR FILTRATION RATE > 60.0 (>49); GLUCOSE, FASTING 138 MG/DL (74-106); POTASSIUM SERUM 3.9 MMOL/L (3.5-5.1); SODIUM LEVEL 139 MMOL/L (136-145); TOTAL PROTEIN 6.1 G/DL (5.7-8.2)
[2022-11-18 12:00] VITALS: BP 125/89
[2022-11-18] MEDS ORDERED: MAG SULF 1GM/100ML (MAG RUN) 1 GM in IV 1 EA IV ONE (15:00)
[2022-11-18] MEDS ORDERED: SODIUM CHLORIDE NASAL 0.65% SPRAY BTL (OCEAN) PRN (15:35)
[2022-11-18 16:00] VITALS: BP 135/74
[2022-11-18 20:00] VITALS: BP 140/73
[2022-11-18] MEDS: TAMSULOSIN 0.4 MG CAP PO SCH (20:25)
[2022-11-19] VITALS: BP 140/79
[2022-11-19] MEDS: ALBUTEROL SULFATE 2.5MG/0.5ML INH NEB SOLN NEB SCH ×4 (01:18→21:00)
[2022-11-19] MEDS: SODIUM CHLORIDE HYPERTONIC 3% 15ML NEB SOL INH SCH ×4 (01:18→21:00)
[2022-11-19 04:00] VITALS: BP 133/67
[2022-11-19] MEDS: SYMBICORT 80/4.5MCG INHALER 6GM INH SCH ×2 (07:47→21:01)
[2022-11-19] MEDS: TIOTROPIUM INHALER/CAPSULE (SPIRIVA) INH SCH (07:47)
[2022-11-19 07:49] LABS: HEMOGLOBIN 12.4 g/dl (13.5-17.5); MEAN CORPUSCULAR HEMOGLOBIN 24.3 pg (27.0-33.0); MEAN CORPUSCULAR HGB CONC 27.6 g/dl (32.0-36.5); MEAN CORPUSCULAR VOLUME 88.2 fl (80.0-96.0); PLATELET COUNT, AUTOMATED 267 10^3/uL (150-450); WHITE BLOOD COUNT 8.2 10^3/uL (4.0-10.0)
[2022-11-19 07:53] VITALS: BP 141/73
[2022-11-19 08:14] LABS: ALKALINE PHOSPHATASE 57 U/L (46-116); ALT/SGPT 22 U/L (7.0-40); AST/SGOT 32 U/L (<34); BILIRUBIN,TOTAL 0.8 MG/DL (0.3-1.2); BLOOD UREA NITROGEN 17 MG/DL (9-23); CALCIUM LEVEL 8.5 MG/DL (8.3-10.6); CARBON DIOXIDE LEVEL 38 MMOL/L (20-31); CHLORIDE LEVEL 97 MMOL/L (98-107); CREATININE FOR GFR 0.65 MG/DL (0.70-1.30); GLOMERULAR FILTRATION RATE > 60.0 (>49); GLUCOSE, FASTING 89 MG/DL (74-106); POTASSIUM SERUM 3.8 MMOL/L (3.5-5.1); SODIUM LEVEL 139 MMOL/L (136-145); TOTAL PROTEIN 6.4 G/DL (5.7-8.2)
[2022-11-19] MEDS: ASPIRIN 81MG CHEW TABLET PO SCH (08:35)
[2022-11-19] MEDS: PANTOPRAZOLE 40MG TAB (PROTONIX) PO SCH (08:35)
[2022-11-19] MEDS: ATORVASTATIN 20 MG TAB PO SCH (08:35)
[2022-11-19] MEDS: APIXABAN 5 MG TAB (ELIQUIS) PO SCH ×2 (08:35→20:03)
[2022-11-19] MEDS: METOPROLOL TART 12.5 MG PER 1/2 TAB PO SCH ×2 (08:35→20:03)
[2022-11-19] MEDS: DOXYCYCLINE HYCLATE 100MG TABLET PO SCH ×2 (08:36→20:03)
[2022-11-19] MEDS: guaiFENesin ER 600 MG TAB PO SCH ×2 (08:36→20:03)
[2022-11-19] MEDS: FUROSEMIDE 40MG/4ML VIAL IV SCH ×2 (08:36→17:00)
[2022-11-19] MEDS: NYSTATIN 100,000 UNITS/GM TOPICAL PWD 15GM TOP SCH ×2 (08:39→20:03)
[2022-11-19 12:00] VITALS: BP 123/67
[2022-11-19 17:00] VITALS: BP 121/73
[2022-11-19 20:00] VITALS: BP 131/61
[2022-11-19] MEDS: TAMSULOSIN 0.4 MG CAP PO SCH (20:03)
[2022-11-20] VITALS: BP 112/67
[2022-11-20 04:00] VITALS: BP 122/77
[2022-11-20 04:39] LABS: HEMATOCRIT 42.8 % (42.0-52.0); HEMOGLOBIN 12.1 g/dl (13.5-17.5); MEAN CORPUSCULAR HEMOGLOBIN 24.7 pg (27.0-33.0); MEAN CORPUSCULAR HGB CONC 28.3 g/dl (32.0-36.5); MEAN CORPUSCULAR VOLUME 87.5 fl (80.0-96.0); PLATELET COUNT, AUTOMATED 262 10^3/uL (150-450); RED BLOOD COUNT 4.89 10^6/uL (4.30-6.10); WHITE BLOOD COUNT 9.2 10^3/uL (4.0-10.0)
[2022-11-20 05:06] LABS: MAGNESIUM LEVEL 1.8 MG/DL (1.8-2.4)
[2022-11-20 06:06] LABS: ALKALINE PHOSPHATASE 57 U/L (46-116); ALT/SGPT 21 U/L (7.0-40); AST/SGOT 32 U/L (<34); BILIRUBIN,TOTAL 0.6 MG/DL (0.3-1.2); BLOOD UREA NITROGEN 20 MG/DL (9-23); CALCIUM LEVEL 8.5 MG/DL (8.3-10.6); CARBON DIOXIDE LEVEL 40 MMOL/L (20-31); CHLORIDE LEVEL 98 MMOL/L (98-107); CREATININE FOR GFR 0.72 MG/DL (0.70-1.30); GLOMERULAR FILTRATION RATE > 60.0 (>49); GLUCOSE, FASTING 90 MG/DL (74-106); POTASSIUM SERUM 3.8 MMOL/L (3.5-5.1); SODIUM LEVEL 140 MMOL/L (136-145); TOTAL PROTEIN 6.3 G/DL (5.7-8.2)
[2022-11-20] MEDS: TIOTROPIUM INHALER/CAPSULE (SPIRIVA) INH SCH (07:42)
[2022-11-20] MEDS: SYMBICORT 80/4.5MCG INHALER 6GM INH SCH ×2 (07:42→21:26)
[2022-11-20] MEDS: SODIUM CHLORIDE HYPERTONIC 3% 15ML NEB SOL INH SCH ×3 (07:43→20:00)
[2022-11-20] MEDS: ALBUTEROL SULFATE 2.5MG/0.5ML INH NEB SOLN NEB SCH ×3 (07:43→20:00)
[2022-11-20 07:52] VITALS: BP 120/63
[2022-11-20] MEDS: ASPIRIN 81MG CHEW TABLET PO SCH (09:00)
[2022-11-20] MEDS: METOPROLOL TART 12.5 MG PER 1/2 TAB PO SCH ×2 (09:00→20:42)
[2022-11-20] MEDS: APIXABAN 5 MG TAB (ELIQUIS) PO SCH ×2 (09:00→20:42)
[2022-11-20] MEDS: NYSTATIN 100,000 UNITS/GM TOPICAL PWD 15GM TOP SCH ×2 (09:00→20:43)
[2022-11-20] MEDS: PANTOPRAZOLE 40MG TAB (PROTONIX) PO SCH (09:01)
[2022-11-20] MEDS: ATORVASTATIN 20 MG TAB PO SCH (09:01)
[2022-11-20] MEDS: DOXYCYCLINE HYCLATE 100MG TABLET PO SCH ×2 (09:01→20:42)
[2022-11-20] MEDS: guaiFENesin ER 600 MG TAB PO SCH ×2 (09:01→20:42)
[2022-11-20] MEDS: FUROSEMIDE 40MG/4ML VIAL IV SCH (09:02)
[2022-11-20 14:32] VITALS: BP 131/56
[2022-11-20] MEDS ORDERED: TIOT18INH INH (18:54)
[2022-11-20] MEDS ORDERED: MUCI600T31 PO (18:54)
[2022-11-20] MEDS ORDERED: PANT40TA29 PO (18:54)
[2022-11-20] MEDS ORDERED: ELIQ5TAB PO (18:54)
[2022-11-20] MEDS ORDERED: FURO20TA2 PO (18:54)
[2022-11-20] MEDS ORDERED: SYMB80INH INH (18:54)
[2022-11-20] MEDS ORDERED: METO1TAB87 PO (18:54)
[2022-11-20] MEDS ORDERED: PROB250C PO (19:02)
[2022-11-20 20:00] VITALS: BP 103/52
[2022-11-20] MEDS: TAMSULOSIN 0.4 MG CAP PO SCH (20:42)
[2022-11-21] MEDS: ALBUTEROL SULFATE 2.5MG/0.5ML INH NEB SOLN NEB SCH ×2 (02:27→07:46)
[2022-11-21] MEDS: SODIUM CHLORIDE HYPERTONIC 3% 15ML NEB SOL INH SCH ×2 (02:27→07:46)
[2022-11-21 04:00] VITALS: BP 120/58
[2022-11-21 04:55] LABS: HEMATOCRIT 43.9 % (42.0-52.0); HEMOGLOBIN 12.4 g/dl (13.5-17.5); MEAN CORPUSCULAR HEMOGLOBIN 24.8 pg (27.0-33.0); MEAN CORPUSCULAR HGB CONC 28.2 g/dl (32.0-36.5); MEAN CORPUSCULAR VOLUME 87.8 fl (80.0-96.0); PLATELET COUNT, AUTOMATED 262 10^3/uL (150-450); WHITE BLOOD COUNT 9.2 10^3/uL (4.0-10.0)
[2022-11-21 05:15] LABS: MAGNESIUM LEVEL 1.6 MG/DL (1.8-2.4)
[2022-11-21 05:30] LABS: ALBUMIN 3.1 G/DL (3.2-5.2); ALKALINE PHOSPHATASE 63 U/L (46-116); ALT/SGPT 22 U/L (7.0-40); AST/SGOT 24 U/L (<34); BILIRUBIN,TOTAL 0.6 MG/DL (0.3-1.2); BLOOD UREA NITROGEN 23 MG/DL (9-23); CALCIUM LEVEL 8.6 MG/DL (8.3-10.6); CARBON DIOXIDE LEVEL 33 MMOL/L (20-31); CHLORIDE LEVEL 101 MMOL/L (98-107); CREATININE FOR GFR 0.69 MG/DL (0.70-1.30); GLOMERULAR FILTRATION RATE > 60.0 (>49); GLUCOSE, FASTING 88 MG/DL (74-106); SODIUM LEVEL 141 MMOL/L (136-145); TOTAL PROTEIN 6.1 G/DL (5.7-8.2)
[2022-11-21] MEDS ORDERED: MAGN400T2 PO (07:03)
[2022-11-21] MEDS: TIOTROPIUM INHALER/CAPSULE (SPIRIVA) INH SCH (07:43)
[2022-11-21] MEDS: SYMBICORT 80/4.5MCG INHALER 6GM INH SCH (07:43)
[2022-11-21] MEDS ORDERED: MAGNESIUM OXIDE 400MG TAB (MAG-OX) PO ONE (08:00)
[2022-11-21] MEDS: ATORVASTATIN 20 MG TAB PO SCH (08:46)
[2022-11-21] MEDS: ASPIRIN 81MG CHEW TABLET PO SCH (08:46)
[2022-11-21] MEDS: PANTOPRAZOLE 40MG TAB (PROTONIX) PO SCH (08:46)
[2022-11-21] MEDS: APIXABAN 5 MG TAB (ELIQUIS) PO SCH (08:46)
[2022-11-21] MEDS: DOXYCYCLINE HYCLATE 100MG TABLET PO SCH (08:46)
[2022-11-21] MEDS: guaiFENesin ER 600 MG TAB PO SCH (08:46)
[2022-11-21] MEDS: NYSTATIN 100,000 UNITS/GM TOPICAL PWD 15GM TOP SCH (08:47)
[2022-11-21 08:50] VITALS: BP 126/64
[2022-11-21] MEDS: METOPROLOL TART 12.5 MG PER 1/2 TAB PO SCH (08:50)
[2022-11-21] MEDS ORDERED: FUROSEMIDE 20 MG TAB PO SCH (09:00)
[2022-11-21] MEDS ORDERED: INCR1INH INH (10:23)
== END 2022-11-21 10:18 | disposition home or self-care (01) | DRG 208 ==
LOC: M ED 10:53 → M ED INP 17:22 → M ICU 18:59
PROVIDERS: ADMIT Internal Medicine; ATTEND Internal Medicine
PROC: 5A1945Z Respiratory Ventilation, 24-96 Consecutive Hours (ICD-10-PCS; principal; 2022-11-11)
DX: J96.21 Acute and chronic respiratory failure with hypoxia (principal); I50.33 Acute on chronic diastolic (congestive) heart failure; J15.1 Pneumonia due to Pseudomonas; I13.0 Hypertensive heart and chronic kidney disease with heart failure and stage 1 through stage 4 chronic kidney disease, or unspecified chronic kidney disease; N17.9 Acute kidney failure, unspecified; J44.1 Chronic obstructive pulmonary disease with (acute) exacerbation; E87.29 Other acidosis; J44.0 Chronic obstructive pulmonary disease with (acute) lower respiratory infection; E66.2 Morbid (severe) obesity with alveolar hypoventilation; I24.8 Other forms of acute ischemic heart disease; G93.40 Encephalopathy, unspecified; Z68.42 Body mass index [BMI] 45.0-49.9, adult; R57.9 Shock, unspecified; M46.26 Osteomyelitis of vertebra, lumbar region; N39.0 Urinary tract infection, site not specified; J96.22 Acute and chronic respiratory failure with hypercapnia; I48.0 Paroxysmal atrial fibrillation; N18.30 Chronic kidney disease, stage 3 unspecified; I27.20 Pulmonary hypertension, unspecified; F17.210 Nicotine dependence, cigarettes, uncomplicated

== ENCOUNTER 2022-12-27 14:43 | Inpatient (IN) | payer MEDICARE, MEDICAID ==
[2022-12-27] VITALS (19 sets, daily range): BP systolic 72–131; BP diastolic 30–78
[~2022-12-27 14:43] MED LIST changes: +DOXY100T PO; +ECOT81TA5 PO; +ELIQ5TAB PO; +INCR1INH INH; +MAGN400T2 PO; +METO1TAB87 PO; +MUCI600T31 PO; +PANT40TA29 PO; +PROB250C PO; +SYMB80INH INH; +TAMS1CAP17 PO; +TIOT18INH INH; +TRAM50TA2 PO
[2022-12-27] MEDS ORDERED: FUROSEMIDE 40MG/4ML VIAL IV SCH (17:00)
[2022-12-27] MEDS ORDERED: ALBUTEROL SULFATE 2.5MG/0.5ML INH NEB SOLN NEB PRN (17:00)
[2022-12-27] MEDS ORDERED: MAGN400T33 PO (17:47)
[2022-12-27] MEDS ORDERED: FURO80TA2 PO (17:47)
[2022-12-27] MEDS ORDERED: ELIQ5TAB PO (17:47)
[2022-12-27] MEDS ORDERED: SYMB16INH INH (17:47)
[2022-12-27] MEDS ORDERED: INCR1INH INH (17:47)
[2022-12-27] MEDS ORDERED: METO1TAB87 PO (17:47)
[2022-12-27] MEDS ORDERED: HOME MED LIST COMPLETE! XX SCH (17:50)
[2022-12-27] MEDS: PANTOPRAZOLE 40MG VIAL IV SCH (18:15)
[2022-12-27 18:20] LABS: CALCIUM LEVEL 8.1 MG/DL (8.3-10.6); CREATININE FOR GFR 1.3 MG/DL (0.70-1.30); GLOMERULAR FILTRATION RATE 59.5 (>49); POTASSIUM SERUM 5.6 MMOL/L (3.5-5.1)
[2022-12-27] MEDS ORDERED: SOD POLYSTYRENE SULFONATE SUSP 15GM 60ML UD PO ONE (19:00)
[2022-12-27] MEDS: SYMBICORT 160/4.5MCG INHALER 6GM INH SCH (19:30)
[2022-12-27] MEDS: APIXABAN 5 MG TAB (ELIQUIS) PO SCH (20:09)
[2022-12-27] MEDS: METOPROLOL TART 12.5 MG PER 1/2 TAB PO SCH (20:09)
[2022-12-28] VITALS (12 sets, daily range): BP systolic 95–157; BP diastolic 50–84
[2022-12-28 04:29] LABS: HEMATOCRIT 45.3 % (42.0-52.0); HEMOGLOBIN 12.1 g/dl (13.5-17.5); MEAN CORPUSCULAR HEMOGLOBIN 23.9 pg (27.0-33.0); MEAN CORPUSCULAR HGB CONC 26.7 g/dl (32.0-36.5); MEAN CORPUSCULAR VOLUME 89.3 fl (80.0-96.0); PLATELET COUNT, AUTOMATED 186 10^3/uL (150-450); RED BLOOD COUNT 5.07 10^6/uL (4.30-6.10); WHITE BLOOD COUNT 6.2 10^3/uL (4.0-10.0)
[2022-12-28 05:02] LABS: BLOOD UREA NITROGEN 42 MG/DL (9-23); CARBON DIOXIDE LEVEL > 40.0 MMOL/L (20-31); CHLORIDE LEVEL 98 MMOL/L (98-107); CREATININE FOR GFR 1.04 MG/DL (0.70-1.30); GLOMERULAR FILTRATION RATE > 60.0 (>49); GLUCOSE, FASTING 92 MG/DL (74-106); POTASSIUM SERUM 4.9 MMOL/L (3.5-5.1); SODIUM LEVEL 142 MMOL/L (136-145)
[2022-12-28] MEDS: TIOTROPIUM INHALER/CAPSULE (SPIRIVA) INH SCH (07:51)
[2022-12-28] MEDS: SYMBICORT 160/4.5MCG INHALER 6GM INH SCH ×2 (07:51→19:52)
[2022-12-28] MEDS: PANTOPRAZOLE 40MG VIAL IV SCH (08:55)
[2022-12-28] MEDS: METOPROLOL TART 12.5 MG PER 1/2 TAB PO SCH ×2 (08:55→21:00)
[2022-12-28] MEDS: APIXABAN 5 MG TAB (ELIQUIS) PO SCH ×2 (08:55→20:59)
[2022-12-28] MEDS ORDERED: ATORVASTATIN 20 MG TAB PO SCH (09:00)
[2022-12-28] MEDS ORDERED: acetaZOLAMIDE 250MG TAB PO SCH (09:00)
[2022-12-28] MEDS ORDERED: FUROSEMIDE 40MG/4ML VIAL IV ONE (09:00)
[2022-12-28] MEDS ORDERED: ASPIRIN 81MG ENTERIC TABLET PO SCH (09:00)
[2022-12-28] MEDS ORDERED: DEXTROSE 50% 50ML SYRINGE IV PRN (10:35)
[2022-12-28] MEDS ORDERED: GLUCOSE 4GM CHEW TABLET PO PRN (10:35)
[2022-12-28] MEDS ORDERED: GLUCAGON INJ 1MG VIAL SC PRN (10:35)
[2022-12-28 11:39] LABS: MAGNESIUM LEVEL 1.7 MG/DL (1.8-2.4)
[2022-12-28 12:21] LABS: VENOUS BASE EXCESS 10.2 (-2.0-2.0); VENOUS HCO3 39.6 MEQ/L (23.0-27.0); VENOUS O2 SATURATION 98.7 % (60.0-80.0); VENOUS PARTIAL PRESSURE CO2 79.4 mmHg (38.0-50.0); VENOUS PARTIAL PRESSURE O2 137.4 mmHg (30.0-50.0); VENOUS PH 7.316 UNITS (7.330-7.430); VENOUS TOTAL CO2 42.1 MEQ/L (24.0-28.0)
[2022-12-28] MEDS: MAGNESIUM OXIDE 400MG TAB (MAG-OX) PO SCH ×2 (12:33→20:58)
[2022-12-28] MEDS: INSULIN LISPRO (NovoLOG) PER UNIT SC SCH ×3 (12:33→21:00)
[2022-12-28] MEDS: TAMSULOSIN 0.4 MG CAP PO SCH (12:33)
[2022-12-28] MEDS: DAPAGLIFLOZIN PROPANEDIOL 10MG TABLET (FARXIGA) PO SCH (12:33)
[2022-12-28 14:14] LABS: VENOUS BASE EXCESS 10.4 (-2.0-2.0); VENOUS O2 SATURATION 81.2 % (60.0-80.0); VENOUS PARTIAL PRESSURE CO2 91.2 mmHg (38.0-50.0); VENOUS PARTIAL PRESSURE O2 48.1 mmHg (30.0-50.0); VENOUS PH 7.271 UNITS (7.330-7.430); VENOUS STANDARD HCO3 33.7 MEQ/L; VENOUS TOTAL CO2 43.8 MEQ/L (24.0-28.0)
[2022-12-28] MEDS: FUROSEMIDE 40MG/4ML VIAL IV SCH (17:00)
[2022-12-29] VITALS (19 sets, daily range): BP systolic 99–113; BP diastolic 51–63; O2SAT 82–98
[2022-12-29] MEDS: TIOTROPIUM INHALER/CAPSULE (SPIRIVA) INH SCH (08:12)
[2022-12-29] MEDS: SYMBICORT 160/4.5MCG INHALER 6GM INH SCH ×2 (08:13→19:20)
[2022-12-29 08:18] LABS: VENOUS BASE EXCESS 12.6 (-2.0-2.0); VENOUS HCO3 42.1 MEQ/L (23.0-27.0); VENOUS O2 SATURATION 95.1 % (60.0-80.0); VENOUS PARTIAL PRESSURE CO2 82.1 mmHg (38.0-50.0); VENOUS PARTIAL PRESSURE O2 76.9 mmHg (30.0-50.0); VENOUS PH 7.328 UNITS (7.330-7.430); VENOUS STANDARD HCO3 36.3 MEQ/L; VENOUS TOTAL CO2 44.6 MEQ/L (24.0-28.0)
[2022-12-29 08:27] LABS: HEMATOCRIT 43.7 % (42.0-52.0); HEMOGLOBIN 11.9 g/dl (13.5-17.5); MEAN CORPUSCULAR HGB CONC 27.2 g/dl (32.0-36.5); MEAN CORPUSCULAR VOLUME 88.1 fl (80.0-96.0); PLATELET COUNT, AUTOMATED 175 10^3/uL (150-450); RED BLOOD COUNT 4.96 10^6/uL (4.30-6.10); WHITE BLOOD COUNT 7.6 10^3/uL (4.0-10.0)
[2022-12-29] MEDS: METOPROLOL TART 12.5 MG PER 1/2 TAB PO SCH ×2 (09:03→20:38)
[2022-12-29] MEDS: APIXABAN 5 MG TAB (ELIQUIS) PO SCH ×2 (09:03→20:37)
[2022-12-29] MEDS: MAGNESIUM OXIDE 400MG TAB (MAG-OX) PO SCH ×2 (09:03→20:37)
[2022-12-29] MEDS: DAPAGLIFLOZIN PROPANEDIOL 10MG TABLET (FARXIGA) PO SCH (09:06)
[2022-12-29] MEDS: ASPIRIN 81MG ENTERIC TABLET PO SCH (09:06)
[2022-12-29] MEDS: TAMSULOSIN 0.4 MG CAP PO SCH (09:09)
[2022-12-29] MEDS: ATORVASTATIN 20 MG TAB PO SCH (09:10)
[2022-12-29] MEDS: FUROSEMIDE 40MG/4ML VIAL IV SCH ×2 (09:12→16:49)
[2022-12-29] MEDS: INSULIN LISPRO (NovoLOG) PER UNIT SC SCH ×4 (09:24→21:00)
[2022-12-29 09:31] LABS: BLOOD UREA NITROGEN 31 MG/DL (9-23); CARBON DIOXIDE LEVEL > 40.0 MMOL/L (20-31); CHLORIDE LEVEL 96 MMOL/L (98-107); CREATININE FOR GFR 0.83 MG/DL (0.70-1.30); GLOMERULAR FILTRATION RATE > 60.0 (>49); GLUCOSE, FASTING 121 MG/DL (74-106); MAGNESIUM LEVEL 1.6 MG/DL (1.8-2.4); POTASSIUM SERUM 3.7 MMOL/L (3.5-5.1); SODIUM LEVEL 142 MMOL/L (136-145)
[2022-12-29] MEDS ORDERED: ISOVUE-370 76% 100ML VIAL As Ordered ONE (13:17)
[2022-12-29] MEDS: MAG SULF 1GM/100ML (MAG RUN) 1 GM in IV 1 EA IV SCH ×2 (14:11→15:14)
[2022-12-29] MEDS: IPRATROPIUM 0.5MG/ALBUTEROL 2.5MG INH SOL UD 3ML (DUONEB) NEB SCH ×3 (14:49→22:45)
[2022-12-29] MEDS: SODIUM CHLORIDE HYPERTONIC 3% 15ML NEB SOL INH SCH ×2 (15:12→22:45)
[2022-12-29] MEDS: DOXYCYCLINE HYCLATE 100MG TABLET PO SCH (20:37)
[2022-12-30] VITALS (27 sets, daily range): BP systolic 101–129; BP diastolic 53–65; O2SAT 88–96
[2022-12-30] MEDS: IPRATROPIUM 0.5MG/ALBUTEROL 2.5MG INH SOL UD 3ML (DUONEB) NEB SCH ×2 (02:47→09:40)
[2022-12-30 07:23] LABS: HEMATOCRIT 41.3 % (42.0-52.0); HEMOGLOBIN 11.3 g/dl (13.5-17.5); MEAN CORPUSCULAR HEMOGLOBIN 23.7 pg (27.0-33.0); MEAN CORPUSCULAR HGB CONC 27.4 g/dl (32.0-36.5); MEAN CORPUSCULAR VOLUME 86.8 fl (80.0-96.0); PLATELET COUNT, AUTOMATED 163 10^3/uL (150-450); RED BLOOD COUNT 4.76 10^6/uL (4.30-6.10); WHITE BLOOD COUNT 9.4 10^3/uL (4.0-10.0)
[2022-12-30] MEDS: INSULIN LISPRO (NovoLOG) PER UNIT SC SCH ×4 (07:30→20:19)
[2022-12-30 07:58] LABS: ALBUMIN 2.8 G/DL (3.2-5.2); ALKALINE PHOSPHATASE 56 U/L (46-116); ALT/SGPT < 9 U/L (7.0-40); AST/SGOT 16 U/L (<34); BILIRUBIN,DIRECT 0.7 MG/DL (<0.4); BILIRUBIN,TOTAL 1.9 MG/DL (0.3-1.2); BLOOD UREA NITROGEN 20 MG/DL (9-23); CALCIUM LEVEL 8.2 MG/DL (8.3-10.6); CARBON DIOXIDE LEVEL > 40.0 MMOL/L (20-31); CHLORIDE LEVEL 93 MMOL/L (98-107); CREATININE FOR GFR 0.68 MG/DL (0.70-1.30); GLOMERULAR FILTRATION RATE > 60.0 (>49); GLUCOSE, FASTING 82 MG/DL (74-106); MAGNESIUM LEVEL 1.8 MG/DL (1.8-2.4); POTASSIUM SERUM 3.6 MMOL/L (3.5-5.1); SODIUM LEVEL 142 MMOL/L (136-145); TOTAL PROTEIN 5.5 G/DL (5.7-8.2)
[2022-12-30] MEDS: TAMSULOSIN 0.4 MG CAP PO SCH (08:45)
[2022-12-30] MEDS: MAGNESIUM OXIDE 400MG TAB (MAG-OX) PO SCH ×2 (08:45→21:04)
[2022-12-30] MEDS: DAPAGLIFLOZIN PROPANEDIOL 10MG TABLET (FARXIGA) PO SCH (08:46)
[2022-12-30] MEDS: METOPROLOL TART 12.5 MG PER 1/2 TAB PO SCH ×2 (08:46→21:04)
[2022-12-30] MEDS: ASPIRIN 81MG ENTERIC TABLET PO SCH (08:46)
[2022-12-30] MEDS: ATORVASTATIN 20 MG TAB PO SCH (08:46)
[2022-12-30] MEDS: APIXABAN 5 MG TAB (ELIQUIS) PO SCH ×2 (08:47→21:04)
[2022-12-30] MEDS: DOXYCYCLINE HYCLATE 100MG TABLET PO SCH ×2 (08:50→21:04)
[2022-12-30] MEDS: FUROSEMIDE 40MG/4ML VIAL IV SCH (08:51)
[2022-12-30] MEDS ORDERED: predniSONE 20 MG TAB PO SCH (10:05)
[2022-12-30] MEDS ORDERED: methylPREDNISolone 125MG 2ML VIAL IV ONE (10:10)
[2022-12-30] MEDS: SYMBICORT 160/4.5MCG INHALER 6GM INH SCH ×2 (11:22→19:20)
[2022-12-30] MEDS: SODIUM CHLORIDE HYPERTONIC 3% 15ML NEB SOL INH SCH ×3 (11:22→23:26)
[2022-12-30] MEDS: ALBUTEROL SULFATE 2.5MG/0.5ML INH NEB SOLN NEB SCH ×2 (16:44→23:26)
[2022-12-30] MEDS: FUROSEMIDE 40 MG TAB PO SCH (16:55)
[2022-12-31] VITALS (26 sets, daily range): BP systolic 101–129; BP diastolic 46–63; O2SAT 88–96
[2022-12-31 05:25] LABS: HEMATOCRIT 43.2 % (42.0-52.0); HEMOGLOBIN 11.6 g/dl (13.5-17.5); MEAN CORPUSCULAR HEMOGLOBIN 23.4 pg (27.0-33.0); MEAN CORPUSCULAR HGB CONC 26.9 g/dl (32.0-36.5); MEAN CORPUSCULAR VOLUME 87.1 fl (80.0-96.0); PLATELET COUNT, AUTOMATED 167 10^3/uL (150-450); RED BLOOD COUNT 4.96 10^6/uL (4.30-6.10); WHITE BLOOD COUNT 9.9 10^3/uL (4.0-10.0)
[2022-12-31 05:52] LABS: ALBUMIN 2.9 G/DL (3.2-5.2); ALKALINE PHOSPHATASE 54 U/L (46-116); ALT/SGPT 10 U/L (7.0-40); AST/SGOT 13 U/L (<34); BILIRUBIN,TOTAL 1.3 MG/DL (0.3-1.2); BLOOD UREA NITROGEN 18 MG/DL (9-23); CALCIUM LEVEL 8.4 MG/DL (8.3-10.6); CARBON DIOXIDE LEVEL > 40.0 MMOL/L (20-31); CHLORIDE LEVEL 95 MMOL/L (98-107); CREATININE FOR GFR 0.68 MG/DL (0.70-1.30); GLOMERULAR FILTRATION RATE > 60.0 (>49); GLUCOSE, FASTING 96 MG/DL (74-106); MAGNESIUM LEVEL 1.8 MG/DL (1.8-2.4); SODIUM LEVEL 142 MMOL/L (136-145); TOTAL PROTEIN 5.9 G/DL (5.7-8.2)
[2022-12-31] MEDS: INSULIN LISPRO (NovoLOG) PER UNIT SC SCH ×3 (07:30→17:18)
[2022-12-31] MEDS: ALBUTEROL SULFATE 2.5MG/0.5ML INH NEB SOLN NEB SCH ×2 (08:10→15:43)
[2022-12-31] MEDS: SODIUM CHLORIDE HYPERTONIC 3% 15ML NEB SOL INH SCH ×2 (08:10→15:44)
[2022-12-31] MEDS: SYMBICORT 160/4.5MCG INHALER 6GM INH SCH ×2 (08:10→20:00)
[2022-12-31] MEDS: DOXYCYCLINE HYCLATE 100MG TABLET PO SCH (08:47)
[2022-12-31] MEDS: APIXABAN 5 MG TAB (ELIQUIS) PO SCH (08:47)
[2022-12-31] MEDS: FUROSEMIDE 40 MG TAB PO SCH ×2 (08:48→17:20)
[2022-12-31] MEDS: MAGNESIUM OXIDE 400MG TAB (MAG-OX) PO SCH (08:48)
[2022-12-31] MEDS: ATORVASTATIN 20 MG TAB PO SCH (08:48)
[2022-12-31] MEDS: TAMSULOSIN 0.4 MG CAP PO SCH (08:48)
[2022-12-31] MEDS: METOPROLOL TART 12.5 MG PER 1/2 TAB PO SCH (08:49)
[2022-12-31] MEDS: DAPAGLIFLOZIN PROPANEDIOL 10MG TABLET (FARXIGA) PO SCH (08:49)
[2022-12-31] MEDS: ASPIRIN 81MG ENTERIC TABLET PO SCH (08:49)
[2022-12-31] MEDS ORDERED: predniSONE 20 MG TAB PO SCH (09:00)
[2022-12-31] MEDS ORDERED: FURO40TA2 PO (15:29)
[2022-12-31] MEDS ORDERED: PRED20TA PO (15:29)
[2022-12-31] MEDS ORDERED: FARX1TAB3 PO (15:29)
[2022-12-31] MEDS ORDERED: CEFU50TA PO (15:52)
[2022-12-31] MEDS ORDERED: DOXY-444 PO (15:52)
== END 2022-12-31 20:00 | disposition home or self-care (01) | DRG 291 ==
LOC: M ICU 16:14 → M PCU 12-28 14:00
PROVIDERS: ADMIT Internal Medicine Pulmonary Disease; ATTEND Internal Medicine
DX: I11.0 Hypertensive heart disease with heart failure (principal); I50.33 Acute on chronic diastolic (congestive) heart failure; J96.21 Acute and chronic respiratory failure with hypoxia; J96.22 Acute and chronic respiratory failure with hypercapnia; J18.9 Pneumonia, unspecified organism; G93.40 Encephalopathy, unspecified; J44.1 Chronic obstructive pulmonary disease with (acute) exacerbation; J44.0 Chronic obstructive pulmonary disease with (acute) lower respiratory infection; I82.C22 Chronic embolism and thrombosis of left internal jugular vein; Z68.41 Body mass index [BMI] 40.0-44.9, adult; I27.20 Pulmonary hypertension, unspecified; E11.9 Type 2 diabetes mellitus without complications; I25.10 Atherosclerotic heart disease of native coronary artery without angina pectoris; E78.5 Hyperlipidemia, unspecified; I48.91 Unspecified atrial fibrillation; Z95.5 Presence of coronary angioplasty implant and graft; F17.200 Nicotine dependence, unspecified, uncomplicated; E87.5 Hyperkalemia; E83.42 Hypomagnesemia; N40.0 Benign prostatic hyperplasia without lower urinary tract symptoms; E66.01 Morbid (severe) obesity due to excess calories; Z88.8 Allergy status to other drugs, medicaments and biological substances; Z79.899 Other long term (current) drug therapy; Z79.82 Long term (current) use of aspirin; Z95.2 Presence of prosthetic heart valve; F41.9 Anxiety disorder, unspecified; F32.A Depression, unspecified; Z79.01 Long term (current) use of anticoagulants; Z91.119 Patient's noncompliance with dietary regimen due to unspecified reason; F12.10 Cannabis abuse, uncomplicated

== ENCOUNTER → 2023-04-02 | Outpatient (CLI) | payer MEDICARE, MEDICAID ==
[~2023-04-02] MED LIST changes: +CEFU50TA PO; +DOXY-444 PO; +FARX1TAB3 PO; +FURO40TA2 PO; +FURO80TA2 PO; +MAGN400T33 PO; +SYMB16INH INH
== END ==
LOC: M CARPUL 08:13
PROVIDERS: ATTEND Internal Medicine Pulmonary Disease
DX: J44.9 Chronic obstructive pulmonary disease, unspecified (principal)